=== PATIENT | female | born 1995 | race Caucasian/White ===

== ENCOUNTER 2020-04-20 08:12 | Outpatient (REF) | payer OTHER, SELFPAY ==
[2020-04-20 11:13] LABS: Alanine Aminotransferase 15 U/L (0-31); Alkaline Phosphatase 55 U/L (39-117); Anion Gap 13 (12-20); Aspartate Amino Transferase 19 U/L (5-31); Bilirubin Total 0.4 mg/dL (0.0-1.0); Blood Urea Nitrogen 11 mg/dL (9-16); Calcium 8.2 mg/dL (8.4-10.2); Carbon Dioxide 24 mmol/L (22-29); Chloride 107 mmol/L (96-108); Estimated Glomerular Filt Rate > 60; Glucose Random 100 mg/dL (60-115); Potassium 4.6 mmol/l (3.3-5.1); Sodium 139 mmol/L (135-145); Total Protein 6.9 g/dL (6.5-8.0)
[2020-04-20 11:25] LABS: Erythrocyte Sedimentation Rate 10 MM/HR (0-20)
[2020-04-20 11:59] LABS: Folate 16.4 ng/mL (> or = 4.0); Vitamin B12 348 pg/mL (200-900)
[2020-04-21 08:52] LABS: Lyme Abs Screen <0.90 index
[2020-04-23 06:37] LABS: IgA 279 mg/dL (47-310); IgG 1027 mg/dL (600-1640); IgM 328 mg/dL (50-300)
== END 2020-04-20 08:13 | disposition home or self-care (01) ==
LOC: HO.WFDLDS 08:12
PROVIDERS: Visit Provider Psychiatry & Neurology Neurology
DX: G62.9 Polyneuropathy, unspecified (principal)
CPT/HCPCS: 36415; 80053; 82550; 82607; 82746; 82784; 85652; 86334; 86618

== ENCOUNTER 2020-04-26 11:08 | Emergency (ER) | payer OTHER, SELFPAY ==
[2020-04-26 11:14] VITALS: BP 137/74; PULSE 71; RESP 16; TEMP 36.8; O2SAT 98; BMI 26.4
--- NOTE | 2020-04-26 11:26 | ED.DIZZY ---
HPI - Dizziness General Chief Complaint: Dizziness Stated Complaint: dizzy,diaphoritic Time Seen by Provider: 04/26/20 11:26 Source: patient Mode of arrival: ambulatory Limitations: no limitations History of Present Illness MD elicited complaint: dizziness, lightheadedness and near syncope Pertinent past history: syncope and hypoglycemia Onset (ago): hour(s) (1) Description: sense of movement, lightheadedness and near-syncope History of similar symptoms: Yes Exacerbating factors: movement/ambulation and change in body position Relieving factors: rest Associated symptoms: nausea, chest pain and weakness Related Data Previous Rx's Medication Instructions Recorded ondansetron 4 mg PO Q8H PRN #20 tab 04/26/20 Allergies Allergy/AdvReac Type Severity Reaction Status Date / Time chocolate flavor Allergy Unknown hives Verified 04/22/20 10:37 codeine [CODEINE] Allergy Unknown UNKNOWN, Verified 04/22/20 10:37 anxiety gluten Allergy Unknown Unknown Verified 04/22/20 10:37 Review of Systems Review of Systems: Constitutional : No Weight loss, No Fever, No Chills ENT/Mouth : No sore throat, No Rhinorrhea Eyes: No Eye Pain, No Swelling Cardiovascular : pos Chest Pain, pos SOB, no Dyspnea on Exertion, No Orthopnea, No Edema, No Palpitations Respiratory : No Cough, No Sputum Gastrointestinal : pos Nausea, No Vomiting, No Diarrhea, No abdominal Pain, No Hematochezia, No Melena Genitourinary : No Dysuria, No Urinary Frequency Musculoskeletal : No joint pain, No Myalgias, No Joint Swelling Skin : No Skin Lesions, No rash Neuro : pos Weakness, No Numbness, No Dizziness, pos Headache Psych : pos Anxiety/Panic, No Depression Heme/Lymph: No Bruising, No Lymphadenopathy Endocrine : No Polyuria, No Polydipsia All other systems reviewed and are negative REPLACED BY [facility] Past Medical History Attestation statement: The following information was validated with the patient. Medical History (Updated 04/26/20 @ 15:37 by Dia Piedra DO) Anxiety PTSD (post-traumatic stress disorder) Surgical History History of hysteroscopy History of tonsillectomy and adenoidectomy History of wisdom tooth extraction Family History Family History (Updated 04/22/20 @ 10:41 by ANA Dalal) Father Scoliosis Psoriasis Mother Diabetes Back pain Gene mutation Maternal Grandmother Liver cancer H/O ETOH abuse Seizures Smoker Paternal Grandfather Smoker CAD (coronary artery disease) Hyperlipidemia Brother Opioid overdose Social History Social History Alcohol intake: never Smoking Status: Never smoker Use of substances other than those prescribed or required for medical reasons: No Advance Directives: No Advance Directives Information Provided: Yes Physical Exam Vital Signs: Vital Signs: Last Vital Signs Temp 98.2 F 04/26/20 11:14 Pulse 67 04/26/20 13:50 Resp 16 04/26/20 11:14 BP 111/62 04/26/20 13:50 Pulse Ox 98 04/26/20 11:14 Body Mass Index 26.4 Appearance: Alert. Oriented X3. No acute distress. Anxious Eyes: Pupils equal, round and reactive to light. ENT: Pharynx normal. Neck: Normal inspection. Neck supple. CVS: Normal heart rate and rhythm. Pulses normal. Respiratory: No respiratory distress. Breath sounds normal. Abdomen: Soft and nontender. Skin: Skin warm and dry. Normal skin color. Normal skin turgor. Extremities: No lower extremity edema. No calf ttp Neuro: Oriented X 3. No motor deficit. No sensory deficit. Course Course Course Narrative: CTA negative, VS stable, EKG negative blood work reassuring stable for DC at this time, feels better reglan and benadryl ordered, there is a component of anxiety MDM - Dizziness MDM Narrative Medical decision making narrative: 25 yo female with hx of syncope, PTSD on OCPs - here with near syncopal event, diffuse weakness some vague chest pain at this time will need labs, EKG, IV ativan for anxiety, troponin x 1, ddimer - dispo per results and findings. Lab Data Result diagrams: 04/26/20 12:02 04/26/20 12:02 Labs: Lab Results 04/26/20 04/26/20 04/26/20 Range/Units 12:02 12:02 12:02 WBC 9.2 (4.8-10.8) X10*3/uL RBC 4.51 (4.20-5.50) X10*6/uL Hgb 13.8 (12.0-16.0) g/dl Hct 41.5 (37-47) % MCV 92.0 (80-98) fL MCH 30.6 (27.0-33.0) pg MCHC 33.3 (31.0-35.0) g/dl RDW 12.4 (11.0-16.0) % Plt Count 245 (160-400) X10*3/uL MPV 10.2 (9.4-12.3) fL Immature Gran % (Auto) 0.4 (0.0-0.4) % Neut % (Auto) 72.5 (45-73) % Lymph % (Auto) 20.0 (20-40) % [place] % (Auto) 5.7 (2-11) % Eos % (Auto) 1.1 (0-4) % Baso % (Auto) 0.3 (0-2) % Lymph # (Auto) 1.8 (1.2-4.9) X10*3/uL [place] # (Auto) 0.5 (0.1-1.2) X10*3/uL Eos # (Auto) 0.1 (0.0-0.4) X10*3/uL Baso # (Auto) 0.0 (0.0-0.2) X10*3/uL Abs Immat Gran (auto) 0.04 H (0.00-0.03) X10*3/uL Absolute Neuts (auto) 6.7 (2.0-8.3) X10*3/uL Absolute Nucleated RBC 0.000 (0.0-0.012) X10*3/uL Nucleated RBC % (auto) 0.0 (0.0-0.2) /100WBC D-Dimer 266 NG/ML Sodium 137 (135-145) mmol/L Potassium 4.3 (3.3-5.1) mmol/l Chloride 106 (96-108) mmol/L Carbon Dioxide 24 (22-29) mmol/L Anion Gap 11 L (12-20) BUN 11 (9-16) mg/dL Creatinine 0.73 (0.5-1.4) mg/dL Estim Creat Clear Calc 99.6 Estimated GFR > 60 Random Glucose 86 (60-115) mg/dL Calcium 8.9 D (8.4-10.2) mg/dL Magnesium 2.0 (1.6-2.6) mg/dL Troponin I High Sens (<3.5-17.0) ng/L 04/26/20 Range/Units 12:02 WBC (4.8-10.8) X10*3/uL RBC (4.20-5.50) X10*6/uL Hgb (12.0-16.0) g/dl Hct (37-47) % MCV (80-98) fL MCH (27.0-33.0) pg MCHC (31.0-35.0) g/dl RDW (11.0-16.0) % Plt Count (160-400) X10*3/uL MPV (9.4-12.3) fL Immature Gran % (Auto) (0.0-0.4) % Neut % (Auto) (45-73) % Lymph % (Auto) (20-40) % [place] % (Auto) (2-11) % Eos % (Auto) (0-4) % Baso % (Auto) (0-2) % Lymph # (Auto) (1.2-4.9) X10*3/uL [place] # (Auto) (0.1-1.2) X10*3/uL Eos # (Auto) (0.0-0.4) X10*3/uL Baso # (Auto) (0.0-0.2) X10*3/uL Abs Immat Gran (auto) (0.00-0.03) X10*3/uL Absolute Neuts (auto) (2.0-8.3) X10*3/uL Absolute Nucleated RBC (0.0-0.012) X10*3/uL Nucleated RBC % (auto) (0.0-0.2) /100WBC D-Dimer NG/ML Sodium (135-145) mmol/L Potassium (3.3-5.1) mmol/l Chloride (96-108) mmol/L Carbon Dioxide (22-29) mmol/L Anion Gap (12-20) BUN (9-16) mg/dL Creatinine (0.5-1.4) mg/dL Estim Creat Clear Calc Estimated GFR Random Glucose (60-115) mg/dL Calcium (8.4-10.2) mg/dL Magnesium (1.6-2.6) mg/dL Troponin I High Sens < 3.5 (<3.5-17.0) ng/L ECG Data Attestation: I personally reviewed and interpreted this ECG as follows: ECG interpretation date: 04/26/20 ECG interpretation time: 14:52 Interpretation: Rate: 50 Rhythm: sinus bradycardia [place]: normal Normal P waves. Normal JOSÉ MANUEL. Normal QRS complex. ST T wave : normal qTC: normal prior studies: no acute ischemia The study has been interpreted contemporaneously by me. . Discharge Plan Discharge Clinical Impression: Near syncope, Acute tension-type headache Patient Disposition: Home, Self-Care Instructions: Acute Headache (ED), Near Syncope (ED) Additional Instructions: return to ED for any worsening symptoms or concerns No evidence of pulmonary embolism. Two small right pulmonary nodules. According to the UPDATED 2017 Fleischner Society recommendations, the advised follow-up imaging for less than 6 mm pulmonary nodule: Low risk, no chest CT follow-up needed and high risk optional chest CT follow-up in one year YOU WOULD FALL INTO THE LOW RISK CATEGORY Prescriptions: New ondansetron 4 mg tablet,disintegrating 4 mg PO Q8H PRN (Reason: nausea and vomiting) Qty: 20 RF: 0 Referrals: Radha Franks NP [Primary Care Provider] - 2 days (if not better) Stand Alone Forms: Work/School Release
--- NOTE | 2020-04-26 11:48 | ECG_ITS ---
Test Reason : DIZZNESS Blood Pressure : / mmHG Vent. Rate : 050 BPM Atrial Rate : 050 BPM P-R Int : 136 ms QRS Dur : 092 ms QT Int : 432 ms P-R-T Axes : 005 077 044 degrees QTc Int : 393 ms Sinus bradycardia Nonspecific ST abnormality Abnormal ECG when compared to EKG of 10/14/19 Heart rate has decreased Referred By: Dia Piedra Electronically Signed By:ULI ALVARENGA MD
[2020-04-26] MEDS: LORazepam 2 MG/ML VIAL 1 MG IVPUSH (12:06)
[2020-04-26] MEDS: ondansetron HCL 4 MG/2 ML VIAL IVPUSH (12:06)
[2020-04-26] MEDS: 0.9 % Sodium Chloride 1,000 ML 999 ML IVCONT (12:06)
[2020-04-26 12:09] LABS: MANUAL DIFF FLAG NO
[2020-04-26 12:13] LABS: Basophils Percent Auto 0.3 % (0-2); Eosinophils Absolute Auto 0.1 X10*3/uL (0.0-0.4); Eosinophils Percent Auto 1.1 % (0-4); Hematocrit 41.5 % (37-47); Hemoglobin 13.8 g/dl (12.0-16.0); Imm Gran Abs Auto 0.04 X10*3/uL (0.00-0.03); Imm Gran Pct Auto 0.4 % (0.0-0.4); Lymphocytes Absolute Auto 1.8 X10*3/uL (1.2-4.9); Mean Corpuscular HGB Conc 33.3 g/dl (31.0-35.0); Mean Corpuscular Hemoglobin 30.6 pg (27.0-33.0); Mean Platelet Volume 10.2 fL (9.4-12.3); Monocytes Absolute Auto 0.5 X10*3/uL (0.1-1.2); Monocytes Percent Auto 5.7 % (2-11); Neutrophils Absolute Auto 6.7 X10*3/uL (2.0-8.3); Neutrophils Percent Auto 72.5 % (45-73); Platelet Count 245 X10*3/uL (160-400); Red Blood Count 4.51 X10*6/uL (4.20-5.50); Red Cell Distribution Width 12.4 % (11.0-16.0); White Blood Count 9.2 X10*3/uL (4.8-10.8)
[2020-04-26 12:17] LABS: D Dimer 266 NG/ML
--- NOTE | 2020-04-26 12:25 | CT_ITS ---
EXAMINATION: CT ANGIOGRAM OF THE CHEST WITH AND WITHOUT CONTRAST (CT PULMONARY ANGIOGRAM FOR PE) CLINICAL INFORMATION: Reason for Exam chest pain elevated ddimer COMPARISON: None TECHNIQUE: Prior to contrast administration, noncontrast localization images were obtained. Subsequently, multidetector volumetric imaging was performed from the thoracic inlet to below the diaphragms following the administration of 65 mLOmnipaque 350 intravenous contrast. No contrast reaction reported Sagittal, coronal, and MIP oblique sagittal reformatted images were obtained on the CT workstation, uploaded to PACS, and reviewed. This CT examination was performed using dose optimization techniques as appropriate, variously including the following: *Automated exposure control *Adjustment of mA and/or kV according to patient size (this includes techniques or standardized protocols for targeted exams where dose is matched to indication/reason for exam; i.e. extremities or head) *Use of iterative reconstruction technique Total exam dose-length product 235 mGy-cm FINDINGS: QUALITY OF STUDY/CONTRAST BOLUS: Satisfactory. PULMONARY ARTERIES: No central or segmental pulmonary emboli. THORACIC AORTA: No aneurysm or dissection. LUNG: There is a 3 mm peripheral or subpleural right middle lobe nodule axial image 199 series 7. There is a 2 mm calcified right lower lobe nodule axial image 321 series 7. PLEURA: No pleural effusion or pneumothorax. MEDIASTINUM: Normal heart size. No pericardial effusion. No hilar or mediastinal lymphadenopathy. No evidence of septal bowing or right heart strain. CHEST WALL/AXILLA: No axillary or internal mammary lymphadenopathy. OSSEOUS STRUCTURES: No acute or suspicious osseous abnormality. UPPER ABDOMEN: Unremarkable. No reflux of contrast into the hepatic veins to suggest elevated right heart pressures. CT/CT angio chest PE protocol IMPRESSION: No evidence of pulmonary embolism. Two small right pulmonary nodules. According to the UPDATED 2017 Fleischner Society recommendations, the advised follow-up imaging for less than 6 mm pulmonary nodule: Low risk, no chest CT follow-up needed and high risk optional chest CT follow-up in one year . VTE: negative
[2020-04-26 12:29] LABS: Anion Gap 11 (12-20); Blood Urea Nitrogen 11 mg/dL (9-16); Calcium 8.9 mg/dL (8.4-10.2); Carbon Dioxide 24 mmol/L (22-29); Chloride 106 mmol/L (96-108); Creatinine Clr Calc Pharmacy 99.6; Estimated Glomerular Filt Rate > 60; Glucose Random 86 mg/dL (60-115); Potassium 4.3 mmol/l (3.3-5.1); Sodium 137 mmol/L (135-145)
[2020-04-26 12:38] LABS: Troponin-I High Sensitivity < 3.5 ng/L (<3.5-17.0)
[2020-04-26 13:50] VITALS: BP 111/62; PULSE 67
[2020-04-26] MEDS: Ketorolac Tromethamine 30 MG/ML VIAL IVPUSH (14:41)
[2020-04-26] MEDS: iohexoL 350 MG/ML 100 ML INFUS..BTL IV (14:43)
[2020-04-26] MEDS: diphenhydrAMINE HCL 50 MG/ML VIAL 25 MG IVPUSH (15:28)
[2020-04-26] MEDS: Metoclopramide HCl 10 MG/2 ML VIAL IVPUSH (15:28)
== END 2020-04-26 16:28 | disposition home or self-care (01) ==
PROVIDERS: Emergency Provider Emergency Medicine; PCP Hospitalist
DX: R42 Dizziness and giddiness (principal); G44.209 Tension-type headache, unspecified, not intractable; R07.9 Chest pain, unspecified; Z79.899 Other long term (current) drug therapy
CPT/HCPCS: 36415; 71275; 80048; 83735; 84484; 85025; 85379; 93005; 96361; 96374; 96375; 99284; J1200; J1885; J2060; J2405; J2765; Q9967

== ENCOUNTER 2020-04-29 11:23 | Outpatient (REF) | payer OTHER, SELFPAY | END 2020-04-29 11:24 | disposition home or self-care (01) | LOC: HO.LAB 11:23 | PROVIDERS: PCP Hospitalist; Visit Provider Internal Medicine | DX: Z20.828 Contact with and (suspected) exposure to other viral communicable diseases (principal) | CPT/HCPCS: C9803; U0003 ==

== ENCOUNTER 2020-05-04 08:34 | Outpatient (REF) | payer OTHER, SELFPAY ==
[2020-05-04 09:05] LABS: COVID-19 Test Negative (Negative)
== END 2020-05-04 08:35 | disposition home or self-care (01) ==
LOC: HO.EMPCOV 08:34
PROVIDERS: PCP Hospitalist; Visit Provider Internal Medicine
DX: Z20.828 Contact with and (suspected) exposure to other viral communicable diseases (principal)
CPT/HCPCS: 87635; C9803

== ENCOUNTER 2020-05-05 09:02 | Outpatient (REF) | payer OTHER, SELFPAY ==
[2020-05-06 11:05] LABS: CT PCR NOT DETECTED (Not Detect.); NG PCR NOT DETECTED (Not Detect.)
== END 2020-05-05 09:03 | disposition home or self-care (01) ==
LOC: HO.LAB 09:02
PROVIDERS: PCP Hospitalist; Visit Provider Advanced Practice Midwife
DX: Z01.419 Encounter for gynecological examination (general) (routine) without abnormal findings (principal); Z20.2 Contact with and (suspected) exposure to infections with a predominantly sexual mode of transmission
CPT/HCPCS: 87491; 87591

== ENCOUNTER 2020-05-17 15:07 | Outpatient (REF) | payer OTHER, SELFPAY ==
[2020-05-17 18:21] LABS: COVID-19 Test Negative (Negative)
== END 2020-05-17 15:08 | disposition home or self-care (01) ==
LOC: HO.EMPCOV 15:07
PROVIDERS: Visit Provider Internal Medicine
DX: Z20.828 Contact with and (suspected) exposure to other viral communicable diseases (principal)
CPT/HCPCS: 87635; C9803

== ENCOUNTER 2020-05-24 07:47 | Outpatient (REF) | payer OTHER, SELFPAY ==
[2020-05-24 08:08] LABS: COVID-19 Test Negative (Negative); IDNOW Serial# 55D5AD1C
== END 2020-05-24 07:48 | disposition home or self-care (01) ==
LOC: HO.EMPCOV 07:47
PROVIDERS: Visit Provider Internal Medicine
DX: Z20.828 Contact with and (suspected) exposure to other viral communicable diseases (principal)
CPT/HCPCS: 87635; C9803

== ENCOUNTER 2020-07-01 07:23 | Outpatient (REF) | payer OTHER, SELFPAY ==
[2020-07-01 08:21] LABS: COVID-19 Test Negative (Negative)
== END 2020-07-01 07:24 | disposition home or self-care (01) ==
LOC: HO.EMPCOV 07:23
PROVIDERS: Visit Provider Internal Medicine
DX: Z20.822 Contact with and (suspected) exposure to COVID-19 (principal)
CPT/HCPCS: 36415; 87635; C9803

== ENCOUNTER 2020-12-22 13:51 | Outpatient (REF) | payer OTHER, SELFPAY ==
[2020-12-23 08:52] LABS: BV Int Neg Control Negative (Negative); BV Int Pos Control Positive (Positive)
== END 2020-12-22 13:52 | disposition home or self-care (01) ==
LOC: HO.LAB 13:51
PROVIDERS: PCP Hospitalist; Visit Provider Obstetrics & Gynecology
DX: B37.3 Candidiasis of vulva and vagina (principal)
CPT/HCPCS: 87480; 87510; 87660

== ENCOUNTER 2021-01-08 11:58 | Emergency (ER) | payer OTHER, SELFPAY ==
--- NOTE | ~2021-01-08 | CT_ITS ---
EXAMINATION: CT ANGIOGRAM OF THE CHEST WITH AND WITHOUT CONTRAST (CT PULMONARY ANGIOGRAM FOR PE) CLINICAL INFORMATION: Reason for Exam elevated d-dimer and chest pain rule out pe COMPARISON: CTA of the chest dated 04/26/2020. TECHNIQUE: Prior to contrast administration, noncontrast localization images were obtained. Subsequently, multidetector volumetric imaging was performed from the thoracic inlet to below the diaphragms following the administration of 80 mL Omnipaque 350 intravenous contrast. No contrast reaction reported Sagittal, coronal, and MIP oblique sagittal reformatted images were obtained on the CT workstation, uploaded to PACS, and reviewed. This CT examination was performed using dose optimization techniques as appropriate, variously including the following: *Automated exposure control *Adjustment of mA and/or kV according to patient size (this includes techniques or standardized protocols for targeted exams where dose is matched to indication/reason for exam; i.e. extremities or head) *Use of iterative reconstruction technique Total exam dose-length product 246 mGy-cm FINDINGS: QUALITY OF STUDY/CONTRAST BOLUS: Satisfactory. PULMONARY ARTERIES: No central or segmental pulmonary emboli. THORACIC AORTA: No aneurysm or dissection. LUNG: No focal consolidation, nodules or masses. PLEURA: No pleural effusion or pneumothorax. MEDIASTINUM: Normal heart size. No pericardial effusion. No hilar or mediastinal lymphadenopathy. No evidence of septal bowing or right heart strain. CHEST WALL/AXILLA: No axillary or internal mammary lymphadenopathy. OSSEOUS STRUCTURES: No acute or suspicious osseous abnormality. UPPER ABDOMEN: Unremarkable. Visualized liver, spleen, left kidney, left adrenal gland, right adrenal gland, and pancreas are unremarkable. No reflux of contrast into the hepatic veins to suggest elevated right heart pressures. CT/CT angio chest PE protocol IMPRESSION: 1. No evidence of pulmonary embolus. 2. Clear lungs. No consolidation. 3. Normal caliber aorta. VTE: negative
--- NOTE | ~2021-01-08 | XR_ITS ---
EXAMINATION: XR CHEST CLINICAL INFORMATION: Chest pain. COMPARISON: Chest CTA dated 04/26/2020. TECHNIQUE: Frontal view of the chest was obtained. FINDINGS: No significant abnormality is noted involving the heart, lungs, mediastinum, bony thorax or soft tissues. XR/XR chest 1V IMPRESSION: No acute cardiopulmonary process.
[2021-01-08 12:33] VITALS: BP 135/74; PULSE 76; RESP 20; TEMP 36.9; O2SAT 100; BMI 28.3
--- NOTE | 2021-01-08 13:51 | ECG_ITS ---
Test Reason : CHEST PAIN Blood Pressure : / mmHG Vent. Rate : 063 BPM Atrial Rate : 063 BPM P-R Int : 152 ms QRS Dur : 094 ms QT Int : 430 ms P-R-T Axes : 015 071 037 degrees QTc Int : 440 ms Normal sinus rhythm Normal ECG When compared with ECG of 26-APR-2020 14:42, QT has lengthened Referred By: Darlene Benavidez Electronically Signed By:EFRAIN ALEJO MD
--- NOTE | 2021-01-08 13:52 | ED_ITS ---
HPI - General Adult General Chief complaint: General Medical Stated complaint: QUEST OF BLOOD CLOT Time Seen by Provider: 01/08/21 13:50 Source: patient and family (Significant other) Mode of arrival: ambulatory Limitations: no limitations History of Present Illness HPI narrative: 25-year-old female came in for evaluation of COVID vaccination complication. 25-year-old female otherwise healthy who received the 1st COVID vaccination shot 2 days ago started to have generalized body ache, generalized body numbness, exertional chest pain and exertional shortness of breath, patient was seen at the urgent care today and was sent to the emergency department for further evaluation. Related Data Home Medications Medication Instructions Recorded Confirmed betamethasone dipropionate 0.05 % applic TOPICAL 04/28/20 08/25/20 topical cream clonazepam 1 mg tablet 1 mg PO BEDTIME PRN 04/28/20 08/25/20 chqiavrgkacl-Lc-fxgd-minerals 27 tab PO 04/28/20 08/25/20 mg-0.4 mg tablet buspirone 5 mg tablet 5 mg PO BID 08/25/20 08/25/20 melatonin 10 mg tablet 10 mg PO BEDTIME PRN 08/25/20 08/25/20 Previous Rx's Medication Instructions Recorded trazodone 100 mg tablet 100 mg PO BEDTIME 90 Days #90 tab 04/28/20 levonorgestrel-ethinyl estradiol 1 tab PO DAILY #28 tab 05/05/20 0.1 mg-20 mcg tablet Allergies Allergy/AdvReac Type Severity Reaction Status Date / Time chocolate flavor Allergy Severe hives with Verified 01/08/21 11:14 airway swelling codeine [CODEINE] Allergy Intermediate anxiety Verified 01/08/21 11:14 gluten Allergy Intermediate abdominal Verified 01/08/21 11:14 pain and bloating Review of Systems Review of Systems: All other systems are reviewed and are negative Constitutional: Reports as per HPI and Reports no additional constitutional complaints Eyes: Reports as per HPI and Reports no additional eye complaints Reports system reviewed and no additional complaints, except as documented Cardiovascular: Reports as per HPI and Reports no additional cardiovascular complaints Respiratory: Reports as per HPI and Reports no additional respiratory complaints Gastrointestinal: Reports as per HPI and Reports no additional gastrointestinal complaints Genitourinary: Reports no additional female genitourinary complaints Musculoskeletal: Reports no additional musculoskeletal complaints Skin/Breast: Reports system reviewed and no additional complaints, except as docu Psychiatric: Reports no additional psychiatric complaints Endocrine: Reports no additional endocrine complaints Hematologic/Lymphatic: Reports no additional hematologic/lymphatic complaints Allergic/Immunologic: Reports no additional allergic/immunologic complaints Reports system reviewed and no additional complaints, except as documented and Reports Abnormal speech present [facility] Past Medical History Medical History Anxiety Degenerated intervertebral disc Fibromyalgia Homozygous MTHFR mutation [id number] PTSD (post-traumatic stress disorder) Vasovagal syncope Vitamin D deficiency Surgical History History of hysteroscopy History of tonsillectomy and adenoidectomy History of wisdom tooth extraction Family History Family History Father Scoliosis Psoriasis Mother Diabetes Back pain Gene mutation Maternal Grandmother Liver cancer H/O ETOH abuse Seizures Smoker Paternal Grandfather Smoker CAD (coronary artery disease) Hyperlipidemia Paternal Uncle Opioid overdose Social History Social History Alcohol intake: never Patient Tobacco Use Status: Never used Tobacco Use of substances other than those prescribed or required for medical reasons: No Advance Directives: No Advance Directives Information Provided: Yes Patient : No Physical Exam Vital Signs: Vital Signs: Last Vital Signs Temp 98.5 F 01/08/21 12:33 Pulse 76 01/08/21 12:33 Resp 20 01/08/21 12:33 BP 135/74 01/08/21 12:33 Pulse Ox 100 01/08/21 12:33 Body Mass Index 28.3 Vital signs have been reviewed as appeared to be correct. Blood pressure normal. Heart rate normal. Respiration rate normal. Temperature normal. Oxygen saturation normal. Appearance: Alert. Oriented X3. No acute distress, anxious. Head: Normal external exam. Normocephalic. Atraumatic. No Qureshi signs noted. No raccoon eyes noted Eyes: PERRLA. EOMI. Conjunctiva and sclera normal. Eyelids normal. ENT: TM's Normal. Pharynx normal. Uvula midline. Moist mucous membranes. No trismus noted. No drooling noted. No muffled voice noted. Neck: Normal inspection. Neck supple. FROM. No adenopathy. Thyroid Normal. No meningeal signs. No neck mass noted. CVS: Normal heart rate and rhythm. Heart sound normal. No murmurs noted. Pulses normal throughout. Respiratory: No respiratory distress. Painless inspiration. Breath sounds normal. No wheezes/rales/rhonchi noted. Chest nontender. No accessory muscle usage noted or decreased air movement noted. Abdomen: Soft and nontender. Bowel sounds normal in all 4 quadrants. No distention noted. No organomegaly noted. No visible injury noted. Back: No CVA tenderness. Full range of motion noted. Skin: Skin warm and dry. Normal skin color. Normal skin turgor. No rashes/lesions/lacerations noted. Extremities: No lower extremity edema. Extremities exhibit normal range of motion. Extremities nontender. Neuro: Oriented X 3. No motor deficit. No sensory deficit. Reflexes normal. Course Course Course Narrative: Assessment and plan. 25-year-old female who received her vaccination for COVID, patient had reaction to vaccination, there was a concern of blood clots, because the slight elevation of D-dimer, patient had a CTA which shows no PE. Labs are unremarkable including cardiac. Will reassure the patient discharge home with Tylenol p.r.n.. Reevaluation(s) Reevaluation #1: While I am discharging the patient trying to reassure her patient became anxious start to cry keep repeating I can take it any more , I kept reassuring the patient and wheezing give the patient any other medication other than Tylenol/Benadryl to control her symptoms. Time: 16:19 Medical Decision Making Lab Data Result diagrams: 01/08/21 14:14 01/08/21 14:14 Labs: Lab Results 01/08/21 01/08/21 01/08/21 Range/Units 14:14 14:14 14:14 WBC 7.7 (4.8-10.8) X10*3/uL RBC 4.73 (4.20-5.50) X10*6/uL Hgb 14.4 (12.0-16.0) g/dl Hct 43.2 (37-47) % MCV 91.3 (80-98) fL MCH 30.4 (27.0-33.0) pg MCHC 33.3 (31.0-35.0) g/dl RDW 12.2 (11.0-16.0) % Plt Count 269 (160-400) X10*3/uL MPV 10.4 (9.4-12.3) fL Immature Gran % (Auto) 0.6 H (0.0-0.4) % Neut % (Auto) 63.9 (45-73) % Lymph % (Auto) 24.9 (20-40) % [place] % (Auto) 7.0 (2-11) % Eos % (Auto) 3.0 (0-4) % Baso % (Auto) 0.6 (0-2) % Lymph # (Auto) 1.9 (1.2-4.9) X10*3/uL [place] # (Auto) 0.5 (0.1-1.2) X10*3/uL Eos # (Auto) 0.2 (0.0-0.4) X10*3/uL Baso # (Auto) 0.1 (0.0-0.2) X10*3/uL Abs Immat Gran (auto) 0.05 H (0.00-0.03) X10*3/uL Absolute Neuts (auto) 4.9 (2.0-8.3) X10*3/uL Absolute Nucleated RBC 0.000 (0.0-0.012) X10*3/uL Nucleated RBC % (auto) 0.0 (0.0-0.2) /100WBC D-Dimer 280 NG/ML Sodium 140 (135-145) mmol/L Potassium 3.8 (3.3-5.1) mmol/L Chloride 107 (96-108) mmol/L Carbon Dioxide 24 (22-29) mmol/L Anion Gap 13 (12-20) BUN 11 (9-16) mg/dL Creatinine 0.82 (0.5-1.4) mg/dL Estim Creat Clear Calc 91.6 Estimated GFR > 60 Random Glucose 92 (60-115) mg/dL Calcium 8.9 (8.4-10.2) mg/dL Total Bilirubin 0.3 (0.0-1.0) mg/dL Direct Bilirubin < 0.2 (0.0-0.5) mg/dL AST 24 (5-31) U/L ALT 28 (0-31) U/L Alkaline Phosphatase 64 (39-117) U/L Troponin I High Sens (<3.5-17.0) ng/L B-Natriuretic Peptide (<100) pg/mL Total Protein 7.2 (6.5-8.0) g/dL Albumin 4.0 (3.5-5.0) g/dL Lipase 19 (8-78) U/L Beta HCG, Quant < 2 mIU/mL 01/08/21 Range/Units 14:14 WBC (4.8-10.8) X10*3/uL RBC (4.20-5.50) X10*6/uL Hgb (12.0-16.0) g/dl Hct (37-47) % MCV (80-98) fL MCH (27.0-33.0) pg MCHC (31.0-35.0) g/dl RDW (11.0-16.0) % Plt Count (160-400) X10*3/uL MPV (9.4-12.3) fL Immature Gran % (Auto) (0.0-0.4) % Neut % (Auto) (45-73) % Lymph % (Auto) (20-40) % [place] % (Auto) (2-11) % Eos % (Auto) (0-4) % Baso % (Auto) (0-2) % Lymph # (Auto) (1.2-4.9) X10*3/uL [place] # (Auto) (0.1-1.2) X10*3/uL Eos # (Auto) (0.0-0.4) X10*3/uL Baso # (Auto) (0.0-0.2) X10*3/uL Abs Immat Gran (auto) (0.00-0.03) X10*3/uL Absolute Neuts (auto) (2.0-8.3) X10*3/uL Absolute Nucleated RBC (0.0-0.012) X10*3/uL Nucleated RBC % (auto) (0.0-0.2) /100WBC D-Dimer NG/ML Sodium (135-145) mmol/L Potassium (3.3-5.1) mmol/L Chloride (96-108) mmol/L Carbon Dioxide (22-29) mmol/L Anion Gap (12-20) BUN (9-16) mg/dL Creatinine (0.5-1.4) mg/dL Estim Creat Clear Calc Estimated GFR Random Glucose (60-115) mg/dL Calcium (8.4-10.2) mg/dL Total Bilirubin (0.0-1.0) mg/dL Direct Bilirubin (0.0-0.5) mg/dL AST (5-31) U/L ALT (0-31) U/L Alkaline Phosphatase (39-117) U/L Troponin I High Sens < 3.5 (<3.5-17.0) ng/L B-Natriuretic Peptide < 10 (<100) pg/mL Total Protein (6.5-8.0) g/dL Albumin (3.5-5.0) g/dL Lipase (8-78) U/L Beta HCG, Quant mIU/mL Imaging Data Chest x-ray: Radiologist's impression: No acute cardiopulmonary process. CT of the chest: Radiologist's impression: No PE. ECG Data Interpretation: Normal sinus rhythm at 63 beats per minutes, normal axis deviation, normal intervals, no ST-T changes Discharge Plan Discharge Clinical Impression: Anxiety, Vaccine reaction Patient Disposition: Home, Self-Care Instructions: The Importance of Immunizations (Vaccines) for Adults (ED) Prescriptions: No Action clonazepam 1 mg tablet 1 mg PO BEDTIME PRNRF: 0 betamethasone dipropionate 0.05 % cream topical RF: 0 Women's Daily Formula 27-0.4 mg tablet PO RF: 0 trazodone 100 mg tablet 100 mg PO BEDTIME 90 Days Qty: 90 RF: 1 melatonin 10 mg tablet 10 mg PO BEDTIME PRNRF: 0 buspirone 5 mg tablet 5 mg PO BID RF: 0 levonorgestrel-ethinyl estrad 0.1-20 mg-mcg tablet 1 tab PO DAILY Qty: 28 RF: 11 Referrals: Radha Franks NP [Primary Care Provider] - 2 days
[2021-01-08 14:21] LABS: Basophils Absolute Auto 0.1 X10*3/uL (0.0-0.2); Basophils Percent Auto 0.6 % (0-2); Eosinophils Absolute Auto 0.2 X10*3/uL (0.0-0.4); Hematocrit 43.2 % (37-47); Hemoglobin 14.4 g/dl (12.0-16.0); Imm Gran Abs Auto 0.05 X10*3/uL (0.00-0.03); Imm Gran Pct Auto 0.6 % (0.0-0.4); Lymphocytes Absolute Auto 1.9 X10*3/uL (1.2-4.9); Lymphocytes Percent Auto 24.9 % (20-40); MANUAL DIFF FLAG NO; Mean Corpuscular HGB Conc 33.3 g/dl (31.0-35.0); Mean Corpuscular Hemoglobin 30.4 pg (27.0-33.0); Mean Corpuscular Volume 91.3 fL (80-98); Mean Platelet Volume 10.4 fL (9.4-12.3); Monocytes Absolute Auto 0.5 X10*3/uL (0.1-1.2); Neutrophils Absolute Auto 4.9 X10*3/uL (2.0-8.3); Neutrophils Percent Auto 63.9 % (45-73); Platelet Count 269 X10*3/uL (160-400); Red Blood Count 4.73 X10*6/uL (4.20-5.50); Red Cell Distribution Width 12.2 % (11.0-16.0); White Blood Count 7.7 X10*3/uL (4.8-10.8)
[2021-01-08] MEDS: 0.9 % Sodium Chloride 1,000 ML 999 ML IVCONT (14:21)
[2021-01-08 14:31] LABS: D Dimer 280 NG/ML
[2021-01-08 14:44] LABS: Alanine Aminotransferase 28 U/L (0-31); Alkaline Phosphatase 64 U/L (39-117); Anion Gap 13 (12-20); Aspartate Amino Transferase 24 U/L (5-31); Bilirubin Direct < 0.2 mg/dL (0.0-0.5); Bilirubin Total 0.3 mg/dL (0.0-1.0); Blood Urea Nitrogen 11 mg/dL (9-16); Calcium 8.9 mg/dL (8.4-10.2); Carbon Dioxide 24 mmol/L (22-29); Chloride 107 mmol/L (96-108); Creatinine Clr Calc Pharmacy 91.6; Estimated Glomerular Filt Rate > 60; Glucose Random 92 mg/dL (60-115); Lipase 19 U/L (8-78); Potassium 3.8 mmol/L (3.3-5.1); Sodium 140 mmol/L (135-145); Total Protein 7.2 g/dL (6.5-8.0)
[2021-01-08 14:48] LABS: B Type Natriuretic Peptide < 10 pg/mL (<100); Troponin-I High Sensitivity < 3.5 ng/L (<3.5-17.0)
[2021-01-08 15:09] LABS: HCG Quantitative < 2 mIU/mL
[2021-01-08] MEDS: iohexoL 350 MG/ML 100 ML INFUS..BTL IV (15:33)
--- NOTE | 2021-01-08 15:49 | PC.NURSE ---
Pt resting quietly in room, aaits CTA. Family at bedside
== END 2021-01-08 16:37 | disposition home or self-care (01) ==
PROVIDERS: Emergency Provider Emergency Medicine; PCP Hospitalist
DX: F41.9 Anxiety disorder, unspecified (principal); T50.B95A Adverse effect of other viral vaccines, initial encounter; Y92.9 Unspecified place or not applicable; R06.02 Shortness of breath; R53.81 Other malaise
CPT/HCPCS: 36415; 71045; 71275; 80048; 80076; 83690; 83880; 84484; 84702; 85025; 85379; 93005; 96360; 99284; Q9967

== ENCOUNTER → 2021-03-15 10:32 | Outpatient (BNVA) | payer OTHER, SELFPAY | PROVIDERS: PCP Hospitalist; Referring Provider Family Medicine; Visit Provider Nurse Practitioner Family ==

== ENCOUNTER 2021-03-31 07:25 | Outpatient (REF) | payer OTHER, SELFPAY ==
[2021-03-31 09:05] LABS: Cholesterol 187 mg/dL; HDL Cholesterol 38 mg/dL; LDL Cholesterol Calculated 119 mg/dl; Triglycerides 154 mg/dL
[2021-04-01 08:47] LABS: Varicella IgG Antibody <135.00 index
[2021-04-01 14:26] LABS: Hepatitis BE Antibody NON-REACTIVE (NON-REACTIVE)
== END 2021-03-31 07:26 | disposition home or self-care (01) ==
LOC: HO.LAB 07:25
PROVIDERS: Absent Provider Family Medicine; PCP Family Medicine; Visit Provider Hospitalist
DX: Z00.00 Encounter for general adult medical examination without abnormal findings (principal); Z11.59 Encounter for screening for other viral diseases
CPT/HCPCS: 36415; 80061; 86707; 86735; 86765; 86787

== ENCOUNTER → 2021-04-29 13:16 | Outpatient (BNVA) | payer OTHER, SELFPAY | PROVIDERS: PCP Family Medicine; Visit Provider Advanced Practice Midwife | DX: N92.6 Irregular menstruation, unspecified (principal) | CPT/HCPCS: 81025 ==

== ENCOUNTER → 2021-05-03 19:29 | Outpatient (REF) | payer OTHER, SELFPAY | LOC: HO.SL 19:29 | PROVIDERS: PCP Hospitalist; Visit Provider Nurse Practitioner Family | DX: G47.50 Parasomnia, unspecified (principal); G47.39 Other sleep apnea | CPT/HCPCS: 95810 ==

== ENCOUNTER 2021-05-06 09:27 | Outpatient (REF) | payer OTHER, SELFPAY ==
--- NOTE | ~2021-05-06 | US_ITS ---
EXAMINATION: OBSTETRICAL ULTRASOUND, FIRST TRIMESTER HISTORY: 26-year-old with irregular menses LMP: 03/23/2021 COMPARISON: None TECHNIQUE: Real time transabdominal imaging with color and M-mode Doppler. FINDINGS: A single, live IUP CRL of 0.6 mm c/w 6.3wks is noted. Heart Rate: 122 beats per minute. Both maternal ovaries are seen and appear normal. GESTATIONAL AGE: 1. GA from LMP: 6.2 wks 2. GA from AUA: 6.3 wks ESTIMATED DATE OF DELIVERY: 1. ENRRIQUE from LMP: 12/28/2021 2. ENRRIQUE from AUA: 12/27/2021 US/US OB pelvic and transvaginal IMPRESSION: 1. A single of live IUP 2. Size equals dates. CRL is consistent with 6 weeks 3 days confirming her LMP based ENRRIQUE of the 12/28/2021. No specific ultrasound followup appears needed at this time. The patient was advised that ultrasound cannot guarantee the of a normal . Thank you very much for this referral. This note was generated with a voice recognition program. Please excuse any errors which may have been overlooked during my review of this note. Sometimes these errors may affect the content or meaning of a given sentence.
== END 2021-05-06 09:28 | disposition home or self-care (01) ==
LOC: HO.US 09:27
PROVIDERS: PCP Family Medicine; Visit Provider Advanced Practice Midwife
DX: Z34.01 Encounter for supervision of normal first pregnancy, first trimester (principal)
CPT/HCPCS: 76801; 76817

== ENCOUNTER → 2021-05-20 13:51 | Outpatient (BNVA) | payer OTHER, SELFPAY | PROVIDERS: PCP Hospitalist; Visit Provider Advanced Practice Midwife | DX: O99.341 Other mental disorders complicating pregnancy, first trimester (principal); F43.10 Post-traumatic stress disorder, unspecified; F41.1 Generalized anxiety disorder; F33.9 Major depressive disorder, recurrent, unspecified; Z11.59 Encounter for screening for other viral diseases; Z3A.08 8 weeks gestation of pregnancy | CPT/HCPCS: 99212 ==

== ENCOUNTER 2021-05-27 09:01 | Outpatient (REF) | payer OTHER, SELFPAY ==
[2021-05-27 10:34] LABS: Amphetamine Screen Urine Not Detected (Not Detect); Barbiturates, Urine Not Detected (Not Detect); Benzodiazepines Screen Urine Not Detected (Not Detect); Cannabinoid Screen Urine Not Detected (Not Detect); Cocaine Screen Urine Not Detected (Not Detect); Fentanyl, urine Not Detected (Not Detect); Opiate Screen Urine Not Detected (Not Detect); Phencyclidine Screen Urine Not Detected (Not Detect)
[2021-05-27 11:06] LABS: Hematocrit 38.2 % (37.0-47.0); Hemoglobin 12.7 g/dl (12.0-16.0); Mean Corpuscular HGB Conc 33.2 g/dl (31.0-35.0); Mean Corpuscular Hemoglobin 30.2 pg (27.0-33.0); Mean Platelet Volume 10.4 fL (9.4-12.3); Platelet Count 247 X10*3/uL (160-400); Red Cell Distribution Width 12.6 % (11.0-16.0); White Blood Count 12.7 X10*3/uL (4.8-10.8)
[2021-05-27 11:35] LABS: Glucose 1 Hour PP 50gm Dose 125 mg/dL (60-140)
[2021-05-27 11:56] LABS: HIV AB/AG Nonreactive (Nonreactive); ~HepC Num1 0.15 S/CO (0.00-0.79); ~Hepatitis C Antibody Nonreactive (Nonreactive)
[2021-05-27 12:00] LABS: Syphilis Screen Nonreactive (Nonreactive)
[2021-05-27 12:13] LABS: HBsAGNum1 0.26 S/CO (0.00-0.99); Hepatitis B Surface Antigen Negative (Negative)
[2021-05-29 01:35] LABS: Rubella IgG Antibody 2.33 Index; Varicella IgG Antibody <135.00 index
== END 2021-05-27 09:02 | disposition home or self-care (01) ==
LOC: HO.LAB 09:01
PROVIDERS: PCP Family Medicine; Visit Provider Advanced Practice Midwife
DX: Z32.01 Encounter for pregnancy test, result positive (principal)
CPT/HCPCS: 80307; 85027; 86762; 86780; 86787; 86803; 86850; 86900; 86901; 87086; 87340; 87389

== ENCOUNTER 2021-06-08 11:00 | Outpatient (RCR) | payer OTHER, SELFPAY ==
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
--- NOTE | 2021-04-14 21:19 | P.PNPS_ITS ---
TMS Daily Progress Note Daily TMS Progress Note Date of Service: 04/14/21 Week #: 1 Treatment #(07-17): 1 PHQ-9 Pre-Treatment (07-14): 20 PHQ-9 Most Recent (07-14): 20 Reviewed: TMS Mapping/Re-mapping completed Verification: I have reviewed the TMS Bulk Plant Agent Note and agree with the contents. The patient remains a candidate to continue TMS treatment per protocol. Assessment and Plan (1) Major depressive disorder, recurrent episode with anxious distress: Status: Acute (2) Generalized anxiety disorder: Status: Acute (3) Post traumatic stress disorder (PTSD): Status: Acute initial mapping completed
--- NOTE | 2021-04-15 18:51 | HO.TMSDAILY2 ---
TMS Daily Progress Note Daily TMS Progress Note Date of Service: 04/15/21 Week #: 1 Treatment #(07-17): 2 PHQ-9 Pre-Treatment (07-14): 20 PHQ-9 Most Recent (07-14): 20 Reviewed: TMS Tech Note Reviewed Verification: I have reviewed the TMS Ballast Cleaning Operator Note and agree with the contents. The patient remains a candidate to continue TMS treatment per protocol. Assessment and Plan (1) Major depressive disorder, recurrent episode with anxious distress: Status: Acute (2) Generalized anxiety disorder: Status: Acute (3) Post traumatic stress disorder (PTSD): Status: Acute tolerating initial treatment continue tx plan
--- NOTE | 2021-04-18 21:15 | P.PNPS_ITS ---
TMS Daily Progress Note Daily TMS Progress Note Date of Service: 04/18/21 Week #: 1 Treatment #(07-17): 3 PHQ-9 Pre-Treatment (07-14): 20 PHQ-9 Most Recent (07-14): 20 Reviewed: TMS Tech Note Reviewed Verification: I have reviewed the TMS Stiff Leg Operator Note and agree with the contents. The patient remains a candidate to continue TMS treatment per pro tocol. Assessment and Plan (1) Major depressive disorder, recurrent episode with anxious distress: Status: Acute (2) Generalized anxiety disorder: Status: Acute (3) Post traumatic stress disorder (PTSD): Status: Acute tolerating treatment continue tx plan
--- NOTE | 2021-04-19 21:42 | P.PNPS_ITS ---
TMS Daily Progress Note Daily TMS Progress Note Date of Service: 04/19/21 Week #: 1 Treatment #(07-17): 4 PHQ-9 Pre-Treatment (07-14): 20 PHQ-9 Most Recent (07-14): 20 Reviewed: TMS Tech Note Reviewed Verification: I have reviewed the TMS Bankruptcy Law Specialist Note and agree with the contents. The patient remains a candidate to continue TMS treatment per pro tocol. Assessment and Plan (1) Major depressive disorder, recurrent episode with anxious distress: Status: Acute (2) Generalized anxiety disorder: Status: Acute (3) Post traumatic stress disorder (PTSD): Status: Acute tolerating treatment continue tx plan
--- NOTE | 2021-04-20 21:46 | P.PNPS_ITS ---
TMS Daily Progress Note Daily TMS Progress Note Date of Service: 04/20/21 Week #: 1 Treatment #(07-17): 5 PHQ-9 Pre-Treatment (07-14): 20 PHQ-9 Most Recent (07-14): 20 Reviewed: TMS Tech Note Reviewed Verification: I have reviewed the TMS Facilities And Grounds Director Note and agree with the contents. The patient remains a candidate to continue TMS treatment per pro tocol. Assessment and Plan (1) Major depressive disorder, recurrent episode with anxious distress: Status: Acute (2) Generalized anxiety disorder: Status: Acute (3) Post traumatic stress disorder (PTSD): Status: Acute tolerating treatment continue tx plan
--- NOTE | 2021-04-21 22:10 | P.PNPS_ITS ---
TMS Daily Progress Note Daily TMS Progress Note Date of Service: 04/21/21 Week #: 2 Treatment #(07-17): 6 PHQ-9 Pre-Treatment (07-14): 20 PHQ-9 Most Recent (07-14): 20 Reviewed: TMS Tech Note Reviewed Verification: I have reviewed the TMS Squirt Machine Operator Note and agree with the contents. The patient remains a candidate to continue TMS treatment per pro tocol.
--- NOTE | 2021-04-22 20:35 | P.PNPS_ITS ---
TMS Daily Progress Note Daily TMS Progress Note Date of Service: 04/22/21 Week #: 2 Treatment #(07-17): 7 PHQ-9 Pre-Treatment (07-14): 20 PHQ-9 Most Recent (07-14): 20 Reviewed: TMS Tech Note Reviewed Verification: I have reviewed the TMS Central Services Tech Note and agree with the contents. The patient remains a candidate to continue TMS treatment per pro tocol. Assessment and Plan (1) Major depressive disorder, recurrent episode with anxious distress: Status: Acute (2) Generalized anxiety disorder: Status: Acute (3) Post traumatic stress disorder (PTSD): Status: Acute tolerating treatment continue tx plan
--- NOTE | 2021-04-26 20:08 | P.PNPS_ITS ---
TMS Daily Progress Note Daily TMS Progress Note Date of Service: 04/26/21 Week #: 2 Treatment #(07-17): 8 PHQ-9 Pre-Treatment (07-14): 20 PHQ-9 Most Recent (07-14): 20 Reviewed: TMS Tech Note Reviewed Verification: I have reviewed the TMS Otolaryngology Physician Note and agree with the contents. The patient remains a candidate to continue TMS treatment per pro tocol.Pt is pregant x Approx 1 month reviewed risks benefits with pt Assessment and Plan (1) Major depressive disorder, recurrent episode with anxious distress: Status: Acute (2) Generalized anxiety disorder: Status: Acute (3) Post traumatic stress disorder (PTSD): Status: Acute literature reviewed case reviewed with pt regarding tms and had L eye pain will monitor adjust position consider change to r side only
--- NOTE | 2021-04-27 21:55 | HO.TMSDAILY2 ---
TMS Daily Progress Note Daily TMS Progress Note Date of Service: 04/27/21 Week #: 2 Treatment #(07-17): 9 PHQ-9 Pre-Treatment (07-14): 20 PHQ-9 Most Recent (07-14): 20 Reviewed: TMS Tech Note Reviewed Verification: I have reviewed the TMS Senior Wind Turbine Technician Note and agree with the contents. The patient remains a candidate to continue TMS treatment per protocol. Assessment and Plan (1) Major depressive disorder, recurrent episode with anxious distress: Status: Acute (2) Generalized anxiety disorder: Status: Acute (3) Post traumatic stress disorder (PTSD): Status: Acute had tooth pain with tms soa changed mt percent decreased pt tolerated tx feeling in general somewhat better
--- NOTE | 2021-04-28 23:11 | HO.TMSDAILY2 ---
TMS Daily Progress Note Daily TMS Progress Note Date of Service: 04/28/21 Week #: 2 Treatment #(07-17): 10 PHQ-9 Pre-Treatment (07-14): 20 PHQ-9 Most Recent (07-14): 20 Reviewed: TMS Tech Note Reviewed Verification: I have reviewed the TMS Medical Coding Manager Note and agree with the contents. The patient remains a candidate to continue TMS treatment per protocol. Assessment and Plan (1) Major depressive disorder, recurrent episode with anxious distress: Status: Acute (2) Generalized anxiety disorder: Status: Acute (3) Post traumatic stress disorder (PTSD): Status: Acute pt witrhout current fascial n side effect tolerating tx feeling better
--- NOTE | 2021-04-29 21:40 | P.PNPS_ITS ---
TMS Daily Progress Note Daily TMS Progress Note Date of Service: 04/29/21 Week #: 3 Treatment #(07-17): 11 PHQ-9 Pre-Treatment (07-14): 20 PHQ-9 Most Recent (07-14): 20 Reviewed: TMS Tech Note Reviewed Verification: I have reviewed the TMS Explosives Handler Note and agree with the contents. The patient remains a candidate to continue TMS treatment per pr otocol. Assessment and Plan (1) Major depressive disorder, recurrent episode with anxious distress: Status: Acute (2) Generalized anxiety disorder: Status: Acute (3) Post traumatic stress disorder (PTSD): Status: Acute cont ttx plan
--- NOTE | 2021-05-02 22:15 | P.PNPS_ITS ---
TMS Daily Progress Note Daily TMS Progress Note Date of Service: 05/02/21 Week #: 3 Treatment #(07-17): 12 PHQ-9 Pre-Treatment (07-14): 20 PHQ-9 Most Recent (07-14): 20 Reviewed: TMS Tech Note Reviewed Verification: I have reviewed the TMS Cnc Milling Machinist Note and agree with the contents. The patient remains a candidate to continue TMS treatment per pr otocol. Assessment and Plan (1) Major depressive disorder, recurrent episode with anxious distress: Status: Acute (2) Generalized anxiety disorder: Status: Acute (3) Post traumatic stress disorder (PTSD): Status: Acute cont ttx plan
--- NOTE | 2021-05-03 21:48 | P.PNPS_ITS ---
TMS Daily Progress Note Daily TMS Progress Note Date of Service: 05/03/21 Week #: 3 Treatment #(07-17): 13 PHQ-9 Pre-Treatment (07-14): 20 PHQ-9 Most Recent (07-14): 20 Reviewed: TMS Tech Note Reviewed Verification: I have reviewed the TMS Marketing And Public Relations Manager Note and agree with the contents. The patient remains a candidate to continue TMS treatment per pr otocol.
--- NOTE | 2021-05-04 23:02 | P.PNPS_ITS ---
TMS Daily Progress Note Daily TMS Progress Note Date of Service: 05/04/21 Week #: 3 Treatment #(07-17): 14 PHQ-9 Pre-Treatment (07-14): 20 PHQ-9 Most Recent (07-14): 20 Reviewed: TMS Tech Note Reviewed Verification: I have reviewed the TMS Director [employer] Aging Note and agree with the contents. The patient remains a candidate to continue TMS treatment per pr otocol. Assessment and Plan (1) Major depressive disorder, recurrent episode with anxious distress: Status: Acute cont tx plan monitor mood anxiety
--- NOTE | 2021-05-05 22:56 | P.PNPS_ITS ---
TMS Daily Progress Note Daily TMS Progress Note Date of Service: 05/05/21 Week #: 3 Treatment #(07-17): 15 PHQ-9 Pre-Treatment (07-14): 20 PHQ-9 Most Recent (07-14): 20 Reviewed: TMS Tech Note Reviewed Verification: I have reviewed the TMS Supervisor Cutting And Boning Note and agree with the contents. The patient remains a candidate to continue TMS treatment per pr otocol.
--- NOTE | 2021-05-06 16:25 | P.PNPS_ITS ---
TMS Daily Progress Note Daily TMS Progress Note Date of Service: 05/07/21 Week #: 4 Treatment #(07-17): 16 PHQ-9 Pre-Treatment (07-14): 20 PHQ-9 Most Recent (07-14): 20 Reviewed: TMS Tech Note Reviewed Verification: I have reviewed the TMS Motorboat Mechanic Inboard Note and agree with the contents. The patient remains a candidate to continue TMS treatment per pr otocol.
--- NOTE | 2021-05-09 23:34 | HO.TMSDAILY2 ---
TMS Daily Progress Note Daily TMS Progress Note Date of Service: 05/09/21 Week #: 4 Treatment #(07-17): 17 PHQ-9 Pre-Treatment (07-14): 20 PHQ-9 Most Recent (07-14): 20 Reviewed: TMS Tech Note Reviewed Verification: I have reviewed the TMS Campground Attendant Note and agree with the contents. The patient remains a candidate to continue TMS treatment per protocol.
--- NOTE | 2021-05-10 22:07 | P.PNPS_ITS ---
TMS Daily Progress Note Daily TMS Progress Note Date of Service: 05/10/21 Week #: 4 Treatment #(07-17): 18 PHQ-9 Pre-Treatment (07-14): 20 PHQ-9 Most Recent (07-14): 20 Reviewed: TMS Tech Note Reviewed Verification: I have reviewed the TMS Upkeep Worker Note and agree with the contents. The patient remains a candidate to continue TMS treatment per pr otocol. Assessment and Plan (1) Major depressive disorder, recurrent episode with anxious distress: Status: Acute cont tx plan monitor mood anxiety generally improving
--- NOTE | 2021-05-11 16:26 | HO.TMSDAILY2 ---
TMS Daily Progress Note Daily TMS Progress Note Date of Service: 05/11/21 Week #: 4 Treatment #(07-17): 19 PHQ-9 Pre-Treatment (07-14): 20 PHQ-9 Most Recent (07-14): 20 Reviewed: TMS Tech Note Reviewed Verification: I have reviewed the TMS High Density Finishing Operator Note and agree with the contents. The patient remains a candidate to continue TMS treatment per protocol.
--- NOTE | 2021-05-16 23:07 | P.PNPS_ITS ---
TMS Daily Progress Note Daily TMS Progress Note Date of Service: 05/16/21 Week #: 4 Treatment #(07-17): 20 PHQ-9 Pre-Treatment (07-14): 20 PHQ-9 Most Recent (07-14): 20 Reviewed: TMS Tech Note Reviewed Verification: I have reviewed the TMS Electric Switch Tester Note and agree with the contents. The patient remains a candidate to continue TMS treatment per pr otocol.
--- NOTE | 2021-05-17 23:20 | HO.TMSDAILY2 ---
TMS Daily Progress Note Daily TMS Progress Note Date of Service: 05/17/21 Week #: 5 Treatment #(07-17): 21 PHQ-9 Pre-Treatment (07-14): 20 PHQ-9 Most Recent (07-14): 20 Reviewed: TMS Tech Note Reviewed Verification: I have reviewed the TMS Tdp Displays Analyst Note and agree with the contents. The patient remains a candidate to continue TMS treatment per protocol.
--- NOTE | 2021-05-18 22:08 | P.PNPS_ITS ---
TMS Daily Progress Note Daily TMS Progress Note Date of Service: 05/18/21 Week #: 5 Treatment #(07-17): 22 PHQ-9 Pre-Treatment (07-14): 20 PHQ-9 Most Recent (07-14): 20 Reviewed: TMS Tech Note Reviewed Verification: I have reviewed the TMS Heavy Truck Mechanic Note and agree with the contents. The patient remains a candidate to continue TMS treatment per pr otocol. Assessment and Plan (1) Major depressive disorder, recurrent episode with anxious distress: Status: Acute cont tx plan monitor mood anxiety generally improving
--- NOTE | 2021-05-20 23:42 | HO.TMSDAILY2 ---
TMS Daily Progress Note Daily TMS Progress Note Date of Service: 05/19/21 Week #: 5 Treatment #(07-17): 22 PHQ-9 Pre-Treatment (07-14): 20 PHQ-9 Most Recent (07-14): 20 Reviewed: TMS Tech Note Reviewed Verification: I have reviewed the TMS Motion Picture Film Examiner Note and agree with the contents. The patient remains a candidate to continue TMS treatment per protocol.
--- NOTE | 2021-05-20 23:44 | P.PNPS_ITS ---
TMS Daily Progress Note Daily TMS Progress Note Date of Service: 05/23/21 Week #: 5 Treatment #(07-17): 23 PHQ-9 Pre-Treatment (07-14): 20 PHQ-9 Most Recent (07-14): 20 Reviewed: TMS Tech Note Reviewed Verification: I have reviewed the TMS Cabinetmaker Helper Note and agree with the contents. The patient remains a candidate to continue TMS treatment per pr otocol.
--- NOTE | 2021-05-23 23:45 | HO.TMSDAILY2 ---
TMS Daily Progress Note Daily TMS Progress Note Date of Service: 05/23/21 Week #: 5 Treatment #(07-17): 24 PHQ-9 Pre-Treatment (07-14): 20 PHQ-9 Most Recent (07-14): 20 Reviewed: TMS Tech Note Reviewed Verification: I have reviewed the TMS Etch Operator Semiconductor Wafers Note and agree with the contents. The patient remains a candidate to continue TMS treatment per protocol.
--- NOTE | 2021-05-25 23:44 | HO.TMSDAILY2 ---
TMS Daily Progress Note Daily TMS Progress Note Date of Service: 05/25/21 Week #: 6 Treatment #(07-17): 27 PHQ-9 Pre-Treatment (07-14): 20 PHQ-9 Most Recent (07-14): 20 Reviewed: TMS Tech Note Reviewed Verification: I have reviewed the TMS Machine Cleaner Note and agree with the contents. The patient remains a candidate to continue TMS treatment per protocol.
--- NOTE | 2021-05-30 22:43 | HO.TMSDAILY2 ---
TMS Daily Progress Note Daily TMS Progress Note Date of Service: 05/26/21 Week #: 6 Treatment #(07-17): 28 PHQ-9 Pre-Treatment (07-14): 20 PHQ-9 Most Recent (07-14): 20 Reviewed: TMS Tech Note Reviewed Verification: I have reviewed the TMS Molecular Genetic Pathologist Note and agree with the contents. The patient remains a candidate to continue TMS treatment per protocol.
--- NOTE | 2021-05-30 22:53 | P.PNPS_ITS ---
TMS Daily Progress Note Daily TMS Progress Note Date of Service: 05/30/21 Week #: 6 Treatment #(07-17): 29 PHQ-9 Pre-Treatment (07-14): 20 PHQ-9 Most Recent (07-14): 20 Reviewed: TMS Tech Note Reviewed Verification: I have reviewed the TMS Production Floater Note and agree with the contents. The patient remains a candidate to continue TMS treatment per pr otocol.
--- NOTE | 2021-05-31 22:32 | HO.TMSDAILY2 ---
TMS Daily Progress Note Daily TMS Progress Note Date of Service: 05/31/21 Week #: 6 Treatment #(07-17): 30 PHQ-9 Pre-Treatment (07-14): 20 PHQ-9 Most Recent (07-14): 20 Reviewed: TMS Tech Note Reviewed Verification: I have reviewed the TMS Computer Systems Administrator Note and agree with the contents. The patient remains a candidate to continue TMS treatment per protocol. Assessment and Plan (1) Major depressive disorder, recurrent episode with anxious distress: Status: Acute cont tx plan monitor mood anxiety generally improving ongoing
--- NOTE | 2021-06-01 23:10 | P.PNPS_ITS ---
TMS Daily Progress Note Daily TMS Progress Note Date of Service: 06/01/21 Week #: 7 Treatment #(07-17): 31 PHQ-9 Pre-Treatment (07-14): 20 PHQ-9 Most Recent (07-14): 20 Reviewed: TMS Tech Note Reviewed Verification: I have reviewed the TMS Greenhouse Assistant Note and agree with the contents. The patient remains a candidate to continue TMS treatment per pr otocol.
--- NOTE | 2021-06-02 23:12 | P.PNPS_ITS ---
TMS Daily Progress Note Daily TMS Progress Note Date of Service: 06/02/21 Week #: 7 Treatment #(07-17): 32 PHQ-9 Pre-Treatment (07-14): 20 PHQ-9 Most Recent (07-14): 20 Reviewed: TMS Tech Note Reviewed Verification: I have reviewed the TMS Supervisor Paper Coating Note and agree with the contents. The patient remains a candidate to continue TMS treatment per pr otocol.
--- NOTE | 2021-06-03 17:20 | P.PNPS_ITS ---
TMS Daily Progress Note Daily TMS Progress Note Date of Service: 06/03/21 Week #: 7 Treatment #(07-17): 33 PHQ-9 Pre-Treatment (07-14): 20 PHQ-9 Most Recent (07-14): 20 Reviewed: TMS Tech Note Reviewed Verification: I have reviewed the TMS Metal Washing Machine Operator Note and agree with the contents. The patient remains a candidate to continue TMS treatment per pr otocol. Assessment and Plan (1) Major depressive disorder, recurrent episode with anxious distress: Status: Acute cont tx plan monitor mood anxiety generally improving ongoing responding well
--- NOTE | 2021-06-06 17:21 | HO.TMSDAILY2 ---
TMS Daily Progress Note Daily TMS Progress Note Date of Service: 06/06/21 Week #: 7 Treatment #(07-17): 34 PHQ-9 Pre-Treatment (07-14): 20 PHQ-9 Most Recent (07-14): 20 Reviewed: TMS Tech Note Reviewed Verification: I have reviewed the TMS Forge Shop Machine Repairer Note and agree with the contents. The patient remains a candidate to continue TMS treatment per protocol. Assessment and Plan (1) Major depressive disorder, recurrent episode with anxious distress: Status: Acute cont tx plan monitor mood anxiety generally improving ongoing responding well
--- NOTE | 2021-06-08 08:49 | P.PNPS_ITS ---
TMS Daily Progress Note Daily TMS Progress Note Date of Service: 06/07/21 Week #: 8 Treatment #(07-17): 35 PHQ-9 Pre-Treatment (07-14): 20 PHQ-9 Most Recent (07-14): 20 Reviewed: TMS Tech Note Reviewed Verification: I have reviewed the TMS Assessment Technician Note and agree with the contents. The patient remains a candidate to continue TMS treatment per pr otocol. Assessment and Plan (1) Major depressive disorder, recurrent episode with anxious distress: Status: Acute (2) Generalized anxiety disorder: Status: Acute (3) Post traumatic stress disorder (PTSD): Status: Acute Patient with significant improvement in mood and stability
--- NOTE | 2021-06-08 23:09 | HO.TMSDAILY2 ---
TMS Daily Progress Note Daily TMS Progress Note Date of Service: 06/08/21 Week #: 8 Treatment #(07-17): 36 PHQ-9 Pre-Treatment (07-14): 20 PHQ-9 Most Recent (07-14): 20 Reviewed: TMS Tech Note Reviewed Verification: I have reviewed the TMS Surface To Air Weapons Officer Note and agree with the contents. The patient remains a candidate to continue TMS treatment per protocol. Assessment and Plan (1) Major depressive disorder, recurrent episode with anxious distress: Status: Acute (2) Generalized anxiety disorder: Status: Acute (3) Post traumatic stress disorder (PTSD): Status: Acute Patient with significant improvement in mood and stability has completed ECT protocol excellent response no difficulties noted
== END 2021-06-09 12:04 | disposition home or self-care (01) ==
LOC: HO.PTMS 11:00
PROVIDERS: PCP Family Medicine; Visit Provider Psychiatry & Neurology Psychiatry
DX: F33.9 Major depressive disorder, recurrent, unspecified (principal); F43.10 Post-traumatic stress disorder, unspecified; F41.1 Generalized anxiety disorder
CPT/HCPCS: 90867; 90868

== ENCOUNTER → 2021-06-14 09:40 | Outpatient (BNVA) | payer OTHER, SELFPAY | PROVIDERS: PCP Hospitalist; Referring Provider Hospitalist; Visit Provider Nurse Practitioner Family ==

== ENCOUNTER 2021-06-15 08:44 | Outpatient (REF) | payer OTHER, SELFPAY ==
[2021-06-16 04:52] LABS: CT PCR NOT DETECTED (Not Detect.); NG PCR NOT DETECTED (Not Detect.)
[2021-06-16 09:42] LABS: BV Int Neg Control Negative (Negative); BV Int Pos Control Positive (Positive)
== END 2021-06-15 08:45 | disposition home or self-care (01) ==
LOC: HO.LAB 08:44
PROVIDERS: PCP Hospitalist; Visit Provider Advanced Practice Midwife
DX: Z34.91 Encounter for supervision of normal pregnancy, unspecified, first trimester (principal); Z3A.12 12 weeks gestation of pregnancy; Z20.2 Contact with and (suspected) exposure to infections with a predominantly sexual mode of transmission
CPT/HCPCS: 81003; 87480; 87491; 87510; 87591; 87660; 88142; 99212

== ENCOUNTER 2021-06-24 14:40 | Outpatient (REF) | payer OTHER, SELFPAY ==
--- NOTE | ~2021-06-24 | US_ITS ---
EXAMINATION: OBSTETRICAL ULTRASOUND, FIRST TRIMESTER HISTORY: 26-year-old at the 13.2 weeks of gestation NT screening COMPARISON: 05/06/2021 TECHNIQUE: Real time transabdominal imaging with color and M-mode Doppler. FINDINGS: A single, live IUP CRL of 81.7 mm c/w 14.1wks is noted. Heart Rate: 156 beats per minute. Normal yolk sac seen. NT was 1.2.mm. NB Present The embryo appears sonographically wnl for this GA. Both maternal ovaries are seen and appear normal. GESTATIONAL AGE: 1. Established GA: 13.2 wks 2. GA from [facility]: 14.1 wks ESTIMATED DATE OF DELIVERY: 1. Established ENRRIQUE: 12/28/2021 2. ENRRIQUE from [facility]: 12/22/2021 US/US OB 1T nuc measure IMPRESSION: 1. A single live IUP 2. Size equals dates 3. NT of 1.2 mm MFM Consultation: I reviewed the ultrasound findings along with significance of NT measurement. The NT of less than 3mm is generally reassuring. However, the sensitivity for T21 detection is only 60%. I reviewed the availability of serum aneuploidy screening which includes cell-free DNA and placental protein based tests. I discussed the sensitivity, false-positive rate, and other limitations associated with each test. I also reviewed the availability of invasive diagnostic tests that are associated small but definite risk of miscarriage. We also reviewed the differences between screening tests and diagnostic tests. After our discussion, she opted for the First trimester screening that is based on cell-free DNA or non-invasive testing (NIPT). She had 2 first trimester miscarriages. 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 She has a history of anxiety and depression. Currently doing well without medication. A follow up at 18 weeks for survey has been scheduled. Thank you very much for this referral. Total time 30 minutes. The time spent was devoted to counseling the patient about the disease and diagnosis, coordinating care including reviewing her records, pertinent lab data and studies, as well as discussing diagnostic evaluation and workup, plan therapeutic interventions and future disposition of care. This includes any additional research needed to obtain further information in formulating the plan of care of this patient. This note was generated with a voice recognition program. Please excuse any errors which may have been overlooked during my review of this note. Sometimes these errors may affect the content or meaning of a given sentence.
== END 2021-06-24 14:41 | disposition home or self-care (01) ==
LOC: HO.US 14:40
PROVIDERS: Visit Provider Advanced Practice Midwife
DX: Z34.92 Encounter for supervision of normal pregnancy, unspecified, second trimester (principal); Z3A.14 14 weeks gestation of pregnancy
CPT/HCPCS: 76813

== ENCOUNTER → 2021-07-14 08:12 | Outpatient (BNVA) | payer OTHER, SELFPAY | PROVIDERS: PCP Hospitalist; Visit Provider Advanced Practice Midwife | DX: O26.892 Other specified pregnancy related conditions, second trimester (principal); R51.9 Headache, unspecified; Z3A.16 16 weeks gestation of pregnancy | CPT/HCPCS: 81003; 99212 ==

== ENCOUNTER → 2021-07-19 07:30 | Outpatient (REF) | payer OTHER, SELFPAY ==
--- NOTE | 2021-07-19 07:36 | HM_ITS ---
Conclusion: 1. Patient was monitored for total period of 3 days and 23 hours 2. Baseline was normal sinus rhythm with average heart of 84 beats per minute 3. No significant pauses or bradycardia noted 4. No significant tachyarrhythmias noted 5. No patient reported events. MTDD
== END ==
LOC: HO.CARD 07:30
PROVIDERS: Visit Provider Internal Medicine Cardiovascular Disease
DX: R00.2 Palpitations (principal)
CPT/HCPCS: 93242

== ENCOUNTER 2021-08-05 12:06 | Outpatient (REF) | payer OTHER, SELFPAY ==
--- NOTE | ~2021-08-05 | US_ITS ---
EXAMINATION: US OBSTETRICAL CLINICAL INFORMATION: 26-year-old at 19.2 weeks of gestation Screening for anomaly COMPARISON: 06/24/2021 TECHNIQUE: Real-time transabdominal ultrasound was performed using C1-5 megahertz transducer. FINDINGS: A single, active, fetus is seen in vertex presentation. The placenta is anterior, and the amniotic fluid volume is wnl. MEASUREMENTS: 1. Biparietal Diameter: 4.9 cm; 20.5 wks 2. Occipital Frontal Diameter: 6.4 cm 3. Head Circumference: 18.1 cm; 20.4 wks 4. Abdominal Circumference: 14.4 cm; 19.6 wks 5. Femur Length: 3.1 cm; 19.6 wks 6. Humerus Length: 3.1 cm; 20.3 wks 7. Tibia Length: 2.8 cm; 20.1 wks 8. Ulna Length: 2.8 cm; 20.2 wks 9. Lateral ventricle: 0.8 cm 10. Cerebellum: 1.9 cm; 19.6 wks 11. Cisterna Magna: 0.43 cm 12. Nuchal Fold: 3.9 mm 13. Heart Rate: 144 beats per minute Rt ovary: normal Lt ovary: normal Cervical length 3.6 cm on T/A. GESTATIONAL AGE: 1. Established GA: 19.2 wks 2. GA from [facility]: 20.2 wks ESTIMATED DATE OF DELIVERY: 1. Established ENRRIQUE: 12/28/2021 2. ENRRIQUE from [facility]: 12/21/2021 ANATOMY: The visualized anatomy includes but not limited to: 1. Cranium: Normal 2. Intracranial anatomy: cavum septum pellucidi, lateral ventricles, choroid plexus, cerebellum, posterior fossa, third and fourth ventricles. 3. face: orbits, lip/palate, profile, nasal bone 4. Heart: four-chamber view of the heart, ventricular septum, foramen ovale, pulmonary vein, left and right outflow tracts, three-vessel view, 3 vessel trachea view, aortic and ductal arches, situs.. 5. Diaphragm: Normal 6. Abdominal wall: Normal 7. Cord Insertion: Normal 8. Spine: Cervical, thoracic, lumbar, sacral. 9. Stomach: Normal size and shape 10. Right Kidney: Normal 11. Left Kidney: Normal 12. 3 vessel cord: Normal 13. Upper extremity: Open hands, fifth digit. 14. Lower extremity: Tibia, fibula, bilateral feet. 15. Bladder: Normal 16. Genitalia: Male, patient aware US/US OB /maternal detail IMPRESSION: 1. Single, living, intrauterine with appropriate biometry. 2. Normal survey DISCUSSION: I reviewed today's ultrasound findings. We discussed the limitations of ultrasound in diagnosing aneuploidy and other congenital abnormalities. I reviewed the differences between screening test and diagnostic test. Amniocentesis was discussed and declined. She was informed that the baseline incidence of congenital abnormalities is approximately 3-5%. Not all these conditions are diagnosable in utero. RECOMMENDATIONS: 1. Follow-up when necessary Thank you for allowing me to participate in her care. This note was generated with a voice recognition program. Please excuse any errors which may have been overlooked during my review of this note. Sometimes these errors may affect the content or meaning of a given sentence.
== END 2021-08-05 12:07 | disposition home or self-care (01) ==
LOC: HO.US 12:06
PROVIDERS: Visit Provider Advanced Practice Midwife
DX: Z34.02 Encounter for supervision of normal first pregnancy, second trimester (principal); Z3A.19 19 weeks gestation of pregnancy
CPT/HCPCS: 76811

== ENCOUNTER 2021-08-10 08:15 | Outpatient (REF) | payer OTHER, SELFPAY | END 2021-08-10 08:16 | disposition home or self-care (01) | LOC: HO.LAB 08:15 | PROVIDERS: PCP Hospitalist; Visit Provider Obstetrics & Gynecology | DX: O26.892 Other specified pregnancy related conditions, second trimester (principal); R31.29 Other microscopic hematuria; Z3A.20 20 weeks gestation of pregnancy | CPT/HCPCS: 87086; 99212 ==

== ENCOUNTER 2022-01-27 15:11 | Outpatient (REF) | payer OTHER, SELFPAY ==
[2022-01-28 15:08] LABS: BV Int Neg Control Negative (Negative); BV Int Pos Control Positive (Positive)
== END 2022-01-27 15:12 | disposition home or self-care (01) ==
LOC: HO.LAB 15:11
PROVIDERS: Visit Provider Advanced Practice Midwife
DX: N76.0 Acute vaginitis (principal)
CPT/HCPCS: 87480; 87510; 87660

== ENCOUNTER 2022-03-14 11:04 | Outpatient (REF) | payer OTHER, SELFPAY ==
[2022-03-14 13:10] LABS: MANUAL DIFF FLAG NO
[2022-03-14 13:13] LABS: Basophils Absolute Auto 0.1 X10*3/uL (0.0-0.2); Basophils Percent Auto 0.6 % (0-2); Eosinophils Absolute Auto 0.3 X10*3/uL (0.0-0.4); Eosinophils Percent Auto 4.2 % (0-4); Hemoglobin 14.1 g/dl (12.0-16.0); Imm Gran Abs Auto 0.05 X10*3/uL (0.00-0.03); Imm Gran Pct Auto 0.6 % (0.0-0.4); Lymphocytes Absolute Auto 1.8 X10*3/uL (1.2-4.9); Lymphocytes Percent Auto 22.1 % (20-40); Mean Corpuscular HGB Conc 33.6 g/dl (31.0-35.0); Mean Corpuscular Hemoglobin 29.5 pg (27.0-33.0); Mean Corpuscular Volume 87.9 fL (80.0-98.0); Monocytes Absolute Auto 0.5 X10*3/uL (0.1-1.2); Monocytes Percent Auto 5.6 % (2-11); Neutrophils Absolute Auto 5.5 x10*3/uL (2.0-8.3); Neutrophils Percent Auto 66.9 % (45-73); Platelet Count 265 X10*3/uL (160-400); Red Blood Count 4.78 X10*6/uL (4.20-5.50); White Blood Count 8.2 X10*3/uL (4.8-10.8)
[2022-03-14 13:29] LABS: Alanine Aminotransferase 68 U/L (0-31); Albumin Level 4.5 g/dL (3.5-5.0); Alkaline Phosphatase 109 U/L (39-117); Anion Gap 14 (12-20); Aspartate Amino Transferase 35 U/L (5-31); Bilirubin Total 0.2 mg/dL (0.0-1.0); Blood Urea Nitrogen 12 mg/dL (9-16); Carbon Dioxide 24 mmol/L (22-29); Chloride 105 mmol/L (96-108); Estimated Glomerular Filt Rate > 60; Glucose Random 95 mg/dL (60-115); Potassium 4.3 mmol/L (3.3-5.1); Sodium 139 mmol/L (135-145); Total Protein 7.4 g/dL (6.5-8.0)
== END 2022-03-14 11:05 | disposition home or self-care (01) ==
LOC: HO.WFDLDS 11:04
PROVIDERS: Visit Provider Family Medicine
DX: Z00.00 Encounter for general adult medical examination without abnormal findings (principal); F33.9 Major depressive disorder, recurrent, unspecified
CPT/HCPCS: 36415; 80053; 84443; 85025

== ENCOUNTER → 2022-03-28 13:32 | Outpatient (BNVA) | payer OTHER, SELFPAY | PROVIDERS: PCP Family Medicine; Referring Provider Family Medicine; Visit Provider Internal Medicine Cardiovascular Disease | DX: I49.8 Other specified cardiac arrhythmias (principal) | CPT/HCPCS: 93005 ==

== ENCOUNTER 2022-04-06 09:41 | Outpatient (REF) | payer OTHER, SELFPAY ==
[2022-04-06 12:35] LABS: Alanine Aminotransferase 40 U/L (0-31); Albumin Level 4.3 g/dL (3.5-5.0); Alkaline Phosphatase 98 U/L (39-117); Anion Gap 17 (12-20); Aspartate Amino Transferase 25 U/L (5-31); Bilirubin Total 0.3 mg/dL (0.0-1.0); Blood Urea Nitrogen 12 mg/dL (9-16); Calcium 9.1 mg/dL (8.4-10.2); Carbon Dioxide 23 mmol/L (22-29); Chloride 106 mmol/L (96-108); Cholesterol 204 mg/dL; Estimated Glomerular Filt Rate > 60; Glucose Fasting 88 mg/dL (60-99); HDL Cholesterol 43 mg/dL; LDL Cholesterol Calculated 138 mg/dl; Potassium 4.5 mmol/L (3.3-5.1); Sodium 141 mmol/L (135-145); Total Protein 7.2 g/dL (6.5-8.0); Triglycerides 115 mg/dL
[2022-04-11 05:43] LABS: Transglutaminase IgA <1.0 U/mL
== END 2022-04-06 09:42 | disposition home or self-care (01) ==
LOC: HO.WFDLDS 09:41
PROVIDERS: Visit Provider Family Medicine
DX: Z00.00 Encounter for general adult medical examination without abnormal findings (principal); R10.9 Unspecified abdominal pain; R74.8 Abnormal levels of other serum enzymes
CPT/HCPCS: 36415; 80053; 80061; 86364

== ENCOUNTER 2022-04-10 12:03 | Outpatient (REF) | payer OTHER, SELFPAY ==
[2022-04-11 14:01] LABS: H Pylori Breath Test Negative (Negative)
== END 2022-04-10 12:04 | disposition home or self-care (01) ==
LOC: HO.LNP 12:03
PROVIDERS: Visit Provider Physician Assistant
DX: A04.8 Other specified bacterial intestinal infections (principal)
CPT/HCPCS: 83013

== ENCOUNTER 2022-05-05 10:23 | Outpatient (REF) | payer OTHER, SELFPAY ==
--- NOTE | ~2022-05-05 | US_ITS ---
EXAMINATION: US ABDOMEN COMPLETE CLINICAL INFORMATION: Unspecified abdominal pain. COMPARISON: None TECHNIQUE: Real-time imaging of the abdominal viscera. FINDINGS: PANCREAS: Normal. ABDOMINAL AORTA: The proximal, mid, and distal segments are normal in caliber. INFERIOR VENA CAVA: Visualized portions are normal. LIVER: The liver is normal in size. The liver contour is normal. There is diffuse increased liver parenchymal echogenicity. No focal hepatic lesion. There is no intrahepatic biliary duct dilatation seen. GALLBLADDER: Normal. The gallbladder is physiologically distended without evidence of stones, sludge, polyps, wall thickening or pericholecystic fluid. COMMON BILE DUCT: Normal in caliber measuring 0.3 cm in diameter. RIGHT KIDNEY: Normal. No hydronephrosis. No renal calculi or focal parenchymal lesions. The kidney measures 10 cm in maximum dimension. The right kidney appears to be ptotic and somewhat malrotated. LEFT KIDNEY: Normal. No hydronephrosis. No renal calculi or focal parenchymal lesions. The kidney measures 11.3 cm in maximum dimension. SPLEEN: Normal. The spleen measures 9.4 cm in maximum dimension. FREE FLUID: None. US/US abdomen complete IMPRESSION: 1. There is generalized increase in hepatic echotexture, consistent with fatty infiltration or hepatocellular disease. Please correlate clinically. No focal hepatic mass or intrahepatic biliary dilatation is seen. 2. Otherwise, unremarkable examination.
== END 2022-05-05 10:24 | disposition home or self-care (01) ==
LOC: HO.US 10:23
PROVIDERS: Visit Provider Physician Assistant
DX: R10.9 Unspecified abdominal pain (principal); G89.29 Other chronic pain
CPT/HCPCS: 76700

== ENCOUNTER → 2022-06-13 08:00 | Outpatient (BNVA) | payer OTHER, SELFPAY | PROVIDERS: PCP Family Medicine; Visit Provider Advanced Practice Midwife | DX: Z01.419 Encounter for gynecological examination (general) (routine) without abnormal findings (principal) ==

== ENCOUNTER 2022-07-26 13:28 | Outpatient (REF) | payer OTHER, SELFPAY ==
[2022-07-26 15:10] LABS: Alanine Aminotransferase 18 U/L (0-31); Albumin Level 4.3 g/dL (3.5-5.0); Alkaline Phosphatase 114 U/L (39-117); Aspartate Amino Transferase 18 U/L (5-31); Bilirubin Direct < 0.2 mg/dL (0.0-0.5); Bilirubin Total 0.3 mg/dL (0.0-1.0); Total Protein 7.1 g/dL (6.5-8.0)
== END 2022-07-26 13:29 | disposition home or self-care (01) ==
LOC: HO.LAB 13:28
PROVIDERS: PCP Family Medicine; Visit Provider Physician Assistant
DX: R10.11 Right upper quadrant pain (principal)
CPT/HCPCS: 36415; 80076

== ENCOUNTER → 2022-07-27 07:54 | Outpatient (BNVA) | payer OTHER, SELFPAY | PROVIDERS: PCP Family Medicine; Referring Provider Family Medicine; Visit Provider Physician Assistant | DX: Z13.89 Encounter for screening for other disorder (principal) ==

== ENCOUNTER → 2022-08-25 08:13 | Outpatient (BNVA) | payer OTHER, SELFPAY | PROVIDERS: PCP Family Medicine; Visit Provider Nurse Practitioner Family | DX: Z13.89 Encounter for screening for other disorder (principal) ==

== ENCOUNTER 2022-09-12 13:05 | Day surgery (SDC) | payer OTHER, SELFPAY ==
[2022-09-07 11:18] VITALS: BMI 28.7
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
[2022-09-12 13:52] VITALS: BMI 30.2
[2022-09-12 14:00] VITALS: BP 105/58; PULSE 75; RESP 16; TEMP 36.4; O2SAT 100
[2022-09-12 14:03] LABS: UPreg QC Valid YES
[2022-09-12 14:04] LABS: Urine Pregnancy NEGATIVE (NEGATIVE)
[2022-09-12] MEDS: Lactated Ringers 1,000 ML 100 ML IVCONT (14:10)
--- NOTE | 2022-09-12 14:46 | P.HPSUR_ITS ---
Pre-Procedural Eval Section A Date of Service: 09/12/22 Section B Chief Complaint: Unspecified abdominal pain Relevant Family History (Specify if Yes): No Relevant Social History: None Present Medications: see Short Stay Collaborative assessment Medical History: Significant History (Anxiety Degenerated intervertebral disc Fibromyalgia Homozygous MTHFR mutation C677T Migraine without aura Psoriatic arthritis PTSD (post-traumatic stress disorder) Sleep behavior disorder, REM Vasovagal syncope Vitamin D deficiency) History of Previous Operations: Relevant previous surgery/procedure and date(s) (History of hysteroscopy History of tonsillectomy and adenoidectomy History of wisdom tooth extraction) Allergies: Allergies Allergy/AdvReac Type Severity Reaction Status Date / Time banana Allergy Severe Unresponsiv Verified 09/07/22 11:16 e chocolate flavor Allergy Severe hives with Verified 08/25/22 08:29 airway swelling codeine [CODEINE] Allergy Intermediate anxiety Verified 08/25/22 08:29 gluten Allergy Intermediate abdominal Verified 08/25/22 08:29 pain and bloating latex Allergy Intermediate Swelling Verified 09/07/22 11:16 avocado Allergy Unknown Unknown Verified 09/07/22 11:16 kiwi Allergy Unknown Unknown Verified 09/07/22 11:16 Review of Systems Sugical H&P ROS: Negative: Constitution, Cardiovascular, Respiratory, Neurological, Psychiatric, Hem-Onc, Allergic/Immunologic, Gastrointestinal, Genitourinary, Musculoskeletal, Integumentary, Endocrine and Eyes/Ears/Nose/Throat Exam Surgical H&P Exam: Normal: HEENT, Normal: Heart, Normal: Lungs, Normal: Ex tremities, Normal: Abdomen, Normal: Skin and Normal: Neurological Plan Diagnosis/Plan: Unchanged I have reviewed the history and physical and performed a pertinent physical examination on my patient. No changes have occurred unless specified. Time Spent With Patient Time: Total time managing care of this patient today ____ minutes.
--- NOTE | 2022-09-12 14:48 | W.PM.OPN ---
Operative Note Operative Note Date of Service: 09/12/22 Narrative: Procedure Description: EGD Indication: epigastric pain Anesthesia: MAC FLEXIBLE TRANSORAL UPPER GASTROINTESTINAL ENDOSCOPY UPPER ENDOSCOPY Consent: Indications for the procedure and potential complications of bleeding, perforation, reaction to medications and missed diagnosis were discussed with the patient and informed consent was obtained. Instrument: Olympus GIF H 190 J mid size upper endoscope Monitoring: Vital signs and clinical assessment, continuous EKG monitoring, Pulse oximetry, Carbon Dioxide monitoring and blood pressure monitoring were done throughout the procedure. Procedure: The patient was placed in the left lateral decubitis position and pre-procedure medications were administered and a bite block was placed. The endoscope was inserted into the mouth and advanced under direct vision to the third part of duodenum. A careful inspection was made as the upper endoscope was withdrawn including a retroflexed examination of the proximal stomach; Findings and interventions are described below. Findings: Larynx:normal Esophagus: GE junction at 36 cm, diaphragm hiatus at 36 cm, bogginess,erythema and nodularity at GEJ with erosion noted, bx taken, as well as from distal and proximal esophagus in separate jars. Stomach: Mild patchy gastric erythema. Biopsies were obtained. Grade 2 flap valve on retroflexed examination of the cardia. The LEs was v lax. Duodenum: Normal bulb and descending duodenum, bx taken Intervention: Biopsies as noted above Impression/Findings: lax LES erosive esophagitis mild gastritis PLAN: high dose PPI for 3 months and repeat EGD in 3-4 months to see if improved if h pylori pos then treat
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
[2022-09-12 15:43] VITALS: BP 109/56; PULSE 91; RESP 16; TEMP 37.6; O2SAT 97
--- NOTE | 2022-09-12 15:44 | HO.POSTANES ---
Post Anesthesia Evaluation Post Anesthesia Evaluation Vital Signs: Vital Signs Temp Pulse Resp BP Pulse Ox O2 Del Method 09/12/22 14:00 97.5 F 75 16 105/58 L 100 Room Air Anesthesia: Monitored Pain Control: Satisfactory Nausea/Vomiting: None Hydration: Adequate Anesthesia-Related Issues: No Anes. Related Issues
[2022-09-12 16:01] VITALS: BP 116/67; PULSE 70; RESP 18; TEMP 36.7; O2SAT 100
== END 2022-09-12 16:08 | disposition home or self-care (01) ==
PROVIDERS: Nurse Practitioner; PCP Family Medicine; Visit Provider Internal Medicine Gastroenterology
PROC: 0DJ08ZZ Inspection of Upper Intestinal Tract, Via Natural or Artificial Opening Endoscopic (ICD-10-PCS; CPT 43235; principal; 2022-09-12 15:00)
DX: K29.50 Unspecified chronic gastritis without bleeding (principal); K22.4 Dyskinesia of esophagus; K20.80 Other esophagitis without bleeding; K44.9 Diaphragmatic hernia without obstruction or gangrene; M79.7 Fibromyalgia; L40.50 Arthropathic psoriasis, unspecified; E72.12 Methylenetetrahydrofolate reductase deficiency; E55.9 Vitamin D deficiency, unspecified; R55 Syncope and collapse; G43.009 Migraine without aura, not intractable, without status migrainosus; G47.8 Other sleep disorders; F41.1 Generalized anxiety disorder; F43.10 Post-traumatic stress disorder, unspecified; Z88.8 Allergy status to other drugs, medicaments and biological substances; Z91.040 Latex allergy status
CPT/HCPCS: 43239; 81025; 88305; 88342

== ENCOUNTER → 2022-09-18 10:58 | Outpatient (BNVA) | payer OTHER, SELFPAY | PROVIDERS: PCP Family Medicine; Visit Provider Internal Medicine Gastroenterology | DX: Z13.89 Encounter for screening for other disorder (principal) ==

== ENCOUNTER → 2022-10-11 07:57 | Outpatient (REF) | payer OTHER, SELFPAY ==
--- NOTE | ~2022-10-11 | NM_ITS ---
EXAMINATION: RADIONUCLIDE SOLID FOOD GASTRIC EMPTYING 4-HOUR STUDY CLINICAL INFORMATION: Early satiety. COMPARISON: No previous gastric emptying study is available for comparison. TECHNIQUE: A standard meal consisting of 4 oz of Egg Beaters brand equivalent tagged with 880 microcuries Tc-99m Sulfur Colloid, 8 oz water and 2 slices of toast with jelly was administered orally to the patient. Images were obtained using a dual head gamma camera in the anterior and posterior projections over of the stomach immediately post ingestion and at hourly intervals up to 4 hours post ingestion. The anterior and posterior counts at each time interval were averaged using the geometric mean and expressed as percentage of the immediate post ingestion counts. FINDINGS: There is good visualization of activity in the stomach immediately post ingestion. As the study progresses, there is fair clearance of activity from the stomach and visualization of progressively increasing small bowel activity. However, at the end of the study there is mild abnormal retention of solid food in the stomach at 4 hours. Retention in the stomach at each time interval was: 1 hour 89% (normal 37%-90%) 2 hours 71% (normal 30%-60%) 3 hours 32% 4 hours 20% (normal 0%-10%) NM/NM gastric emptying study IMPRESSION: Abnormal study. There is mild abnormal retention of solid food in the stomach at 4 hours. Gastric emptying study grading per JNMT Consensus Recommendations in 2008 (https://tech.snmjournals.org/content/36/44) Grade 1 (mild retention): 11-20% at 4h Grade 2 (moderate retention): 21-35% at 4h Grade 3 (severe retention): 36-50% at 4h Grade 4 (very severe retention): >50% retention at 4h
== END ==
LOC: HO.NUCMED 07:57
PROVIDERS: PCP Family Medicine; Visit Provider Internal Medicine Gastroenterology
DX: R68.81 Early satiety (principal)
CPT/HCPCS: 78264; A9541

== ENCOUNTER 2022-10-19 08:02 | Outpatient (REF) | payer OTHER, SELFPAY ==
[2022-10-21 06:24] LABS: Immunoglobulin E 4 kU/L (<OR=114)
[2022-10-29 16:02] LABS: Histamine Release <16 % (<16); TSH 1.72 mIU/L (0.40-4.50); Thyroglobulin Abs 4 IU/mL (< OR = 1)
== END 2022-10-19 08:03 | disposition home or self-care (01) ==
LOC: HO.LAB 08:02
PROVIDERS: PCP Family Medicine; Visit Provider Allergy & Immunology
DX: T78.49XA Other allergy, initial encounter (principal); T78.00XA Anaphylactic reaction due to unspecified food, initial encounter
CPT/HCPCS: 36415; 82785; 84443; 86003; 86343; 86376; 86800

== ENCOUNTER → 2022-11-02 13:54 | Outpatient (BNVA) | payer OTHER, SELFPAY | PROVIDERS: PCP Family Medicine; Visit Provider Student in an Organized Health Care Education/Training Program ==

== ENCOUNTER 2022-11-03 07:48 | Outpatient (REF) | payer OTHER, SELFPAY ==
--- NOTE | ~2022-11-03 | XR_ITS ---
EXAMINATION: XR BILATERAL HAND SERIES XR BILATERAL FOOT SERIES CLINICAL INFORMATION: Rheumatoid arthritis. COMPARISON: None. TECHNIQUE: 4 views of each hand and 3 views of each foot. FINDINGS: Right hand: The bones, joints, and soft tissues appear normal with normal alignment. No joint space narrowing or marginal erosions. No soft tissue calcifications. Left hand: The bones, joints, and soft tissues appear normal with normal alignment. No joint space narrowing or marginal erosions. No soft tissue calcifications. Right foot: The bones, joints, and soft tissues appear normal with normal alignment. No marginal erosions or joint space narrowing. No soft tissue calcifications. Left foot: The bones, joints, and soft tissues appear normal with normal alignment. No marginal erosions or joint space narrowing. No soft tissue calcifications. XR/XR foot LT min 3V IMPRESSION: No radiographic evidence for inflammatory arthropathy. Right Hand: Normal. Left Hand: Normal. Right Foot: Normal. Left foot: Normal.
--- NOTE | ~2022-11-03 | XR_ITS ---
EXAMINATION: XR BILATERAL HAND SERIES XR BILATERAL FOOT SERIES CLINICAL INFORMATION: Rheumatoid arthritis. COMPARISON: None. TECHNIQUE: 4 views of each hand and 3 views of each foot. FINDINGS: Right hand: The bones, joints, and soft tissues appear normal with normal alignment. No joint space narrowing or marginal erosions. No soft tissue calcifications. Left hand: The bones, joints, and soft tissues appear normal with normal alignment. No joint space narrowing or marginal erosions. No soft tissue calcifications. Right foot: The bones, joints, and soft tissues appear normal with normal alignment. No marginal erosions or joint space narrowing. No soft tissue calcifications. Left foot: The bones, joints, and soft tissues appear normal with normal alignment. No marginal erosions or joint space narrowing. No soft tissue calcifications. XR/XR hand wrist LT IMPRESSION: No radiographic evidence for inflammatory arthropathy. Right Hand: Normal. Left Hand: Normal. Right Foot: Normal. Left foot: Normal.
--- NOTE | ~2022-11-03 | XR_ITS ---
EXAMINATION: XR BILATERAL HAND SERIES XR BILATERAL FOOT SERIES CLINICAL INFORMATION: Rheumatoid arthritis. COMPARISON: None. TECHNIQUE: 4 views of each hand and 3 views of each foot. FINDINGS: Right hand: The bones, joints, and soft tissues appear normal with normal alignment. No joint space narrowing or marginal erosions. No soft tissue calcifications. Left hand: The bones, joints, and soft tissues appear normal with normal alignment. No joint space narrowing or marginal erosions. No soft tissue calcifications. Right foot: The bones, joints, and soft tissues appear normal with normal alignment. No marginal erosions or joint space narrowing. No soft tissue calcifications. Left foot: The bones, joints, and soft tissues appear normal with normal alignment. No marginal erosions or joint space narrowing. No soft tissue calcifications. XR/XR hand wrist RT IMPRESSION: No radiographic evidence for inflammatory arthropathy. Right Hand: Normal. Left Hand: Normal. Right Foot: Normal. Left foot: Normal.
--- NOTE | ~2022-11-03 | XR_ITS ---
EXAMINATION: XR BILATERAL HAND SERIES XR BILATERAL FOOT SERIES CLINICAL INFORMATION: Rheumatoid arthritis. COMPARISON: None. TECHNIQUE: 4 views of each hand and 3 views of each foot. FINDINGS: Right hand: The bones, joints, and soft tissues appear normal with normal alignment. No joint space narrowing or marginal erosions. No soft tissue calcifications. Left hand: The bones, joints, and soft tissues appear normal with normal alignment. No joint space narrowing or marginal erosions. No soft tissue calcifications. Right foot: The bones, joints, and soft tissues appear normal with normal alignment. No marginal erosions or joint space narrowing. No soft tissue calcifications. Left foot: The bones, joints, and soft tissues appear normal with normal alignment. No marginal erosions or joint space narrowing. No soft tissue calcifications. XR/XR foot RT min 3V IMPRESSION: No radiographic evidence for inflammatory arthropathy. Right Hand: Normal. Left Hand: Normal. Right Foot: Normal. Left foot: Normal.
[2022-11-03 08:15] LABS: MANUAL DIFF FLAG NO
[2022-11-03 08:30] LABS: Basophils Percent Auto 0.6 % (0-2); Eosinophils Absolute Auto 0.4 X10*3/uL (0.0-0.4); Hematocrit 42.7 % (37.0-47.0); Hemoglobin 14.1 g/dl (12.0-16.0); Imm Gran Abs Auto 0.02 X10*3/uL (0.00-0.03); Imm Gran Pct Auto 0.3 % (0.0-0.4); Lymphocytes Absolute Auto 1.9 X10*3/uL (1.2-4.9); Lymphocytes Percent Auto 26.2 % (20-40); Mean Corpuscular Hemoglobin 29.5 pg (27.0-33.0); Mean Corpuscular Volume 89.3 fL (80.0-98.0); Mean Platelet Volume 10.5 fL (9.4-12.3); Monocytes Absolute Auto 0.3 X10*3/uL (0.1-1.2); Monocytes Percent Auto 4.5 % (2-11); Neutrophils Absolute Auto 4.4 x10*3/uL (2.0-8.3); Neutrophils Percent Auto 62.4 % (45-73); Platelet Count 257 X10*3/uL (160-400); Red Blood Count 4.78 X10*6/uL (4.20-5.50); Red Cell Distribution Width 12.5 % (11.0-16.0); White Blood Count 7.1 X10*3/uL (4.8-10.8)
[2022-11-03 09:03] LABS: Alanine Aminotransferase 17 U/L (0-31); Albumin Level 4.1 g/dL (3.5-5.0); Alkaline Phosphatase 105 U/L (39-117); Anion Gap 11 (12-20); Aspartate Amino Transferase 17 U/L (5-31); Bilirubin Total 0.3 mg/dL (0.0-1.0); Blood Urea Nitrogen 18 mg/dL (9-16); C Reactive Protein 0.16 mg/dL (< or = 0.50); Carbon Dioxide 24 mmol/L (22-29); Chloride 107 mmol/L (96-108); Estimated Glomerular Filt Rate > 60; Glucose Random 116 mg/dL (60-115); Potassium 4.3 mmol/L (3.3-5.1); Rheumatoid Factor < 13.0 IU/mL (<15.0); Sodium 138 mmol/L (135-145); Total Protein 7.1 g/dL (6.5-8.0)
[2022-11-03 09:19] LABS: HBS Num1 1.32 mIU/mL (0-7.99); HBc Num1 0.11 S/CO (0.00-0.79); HBsAGNum1 0.27 S/CO (0.00-0.99); Hepatitis B Core Antibody Nonreactive (Nonreactive); Hepatitis B Surface Antigen Negative (Negative); ~HepC Num1 0.13 S/CO (0.00-0.79); ~Hepatitis A Antibody IgM Nonreactive (Nonreactive); ~Hepatitis B Surface Antibody NONREACTIVE (Nonreactive); ~Hepatitis C Antibody Nonreactive (Nonreactive)
[2022-11-03 09:21] LABS: Erythrocyte Sedimentation Rate 13 MM/HR (0-20)
[2022-11-03 10:05] LABS: Appearance Urine Clear; Color Urine Yellow; Glucose Urine UA Negative (Negative); Leukocyte Esterase Urine Small (1+) (Negative); Nitrite Urine Negative (Negative); Specific Gravity - Urine 1.025 (1.005-1.025); UMIC TRIGGER UA YES; Urine Blood Trace (Negative); Urine Ketones Negative (Negative); Urine Protein Negative (Neg-Trace)
[2022-11-03 10:19] LABS: Bacteria Urine None Seen (None Seen); Hyaline Casts Urine 0-2 /LPF (0-2)
[2022-11-03 16:24] LABS: Creatinine Urine 36.99 mg/dL; Total Protein Urine Random < 7 mg/dL (<12)
[2022-11-05 23:39] LABS: TS Negative Control Passed; TS Panel A 0; TS Panel B 2; TS Positive Control Passed; TSpotTB Negative (Negative)
[2022-11-06 13:13] LABS: Cyclic Citrullinated Peptide <16 UNITS
[2022-11-07 07:43] LABS: Complement C3 152 mg/dL (83-193)
[2022-11-07 15:03] LABS: IgA 282 mg/dL (47-310); IgG 1103 mg/dL (600-1640); IgM 353 mg/dL (50-300)
[2022-11-07 15:07] LABS: Anti DNA DS Antibody 2 IU/mL; Antibody to SS-A Antigen <1.0 NEG AI (<1.0 NEG); Antibody to SS-B Antigen <1.0 NEG AI (<1.0 NEG); SM/Ribonucleoprotein Ab <1.0 NEG AI (<1.0 NEG); Smith Protein <1.0 NEG AI (<1.0 NEG)
[2022-11-07 22:42] LABS: Prot Elec - Albumin 4.4 g/dL (3.8-4.8); Prot Elec - Alpha1 0.3 g/dL (0.2-0.3); Prot Elec - Alpha2 0.6 g/dL (0.5-0.9); Prot Elec - Beta 1 0.6 g/dL (0.4-0.6); Prot Elec - Beta 2 0.5 g/dL (0.2-0.5); Prot Elec - Gamma 1.1 g/dL (0.8-1.7); Prot Elec - Total Protein 7.5 g/dL (6.1-8.1)
[2022-11-10 15:37] LABS: Anti Nuclear Antibody Screen NEGATIVE (NEGATIVE)
== END 2022-11-03 07:49 | disposition home or self-care (01) ==
LOC: HO.XRAY 07:48
PROVIDERS: PCP Family Medicine; Visit Provider Student in an Organized Health Care Education/Training Program
DX: Z11.59 Encounter for screening for other viral diseases (principal); Z11.7 Encounter for testing for latent tuberculosis infection; M32.9 Systemic lupus erythematosus, unspecified; M06.9 Rheumatoid arthritis, unspecified; Z72.89 Other problems related to lifestyle
CPT/HCPCS: 36415; 73110; 73130; 73630; 80053; 81001; 82784; 84156; 84165; 85025; 85652; 86038; 86140; 86160; 86200; 86225; 86235; 86334; 86431; 86481; 86704; 86706; 86709; 86803; 87340

== ENCOUNTER 2022-12-07 06:59 | Day surgery (SDC) | payer OTHER, SELFPAY ==
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
[2022-12-07 07:11] VITALS: BMI 32.9
[2022-12-07 07:20] VITALS: BP 106/52; PULSE 77; RESP 15; TEMP 36.2; O2SAT 97
[2022-12-07 07:20] LABS: UPreg QC Valid YES; Urine Pregnancy NEGATIVE (NEGATIVE)
[2022-12-07] MEDS: Lactated Ringers 1,000 ML 100 ML IVCONT (07:32)
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
--- NOTE | 2022-12-07 08:20 | P.HPSUR_ITS ---
Pre-Procedural Eval Section A Date of Service: 12/07/22 Section B Chief Complaint: Early satiety Details of Present Illness: gastroparesis and esophagitis Relevant Family History (Specify if Yes): No Relevant Social History: None Present Medications: see Short Stay Collaborative assessment Medical History: Significant History (ADHD Anxiety Degenerated intervertebral disc Depression Fibromyalgia Gastroparesis Homozygous MTHFR mutation C677T Migraine without aura POTS (postural orthostatic tachycardia syndrome) Psoriatic arthritis PTSD (post-traumatic stress disorder) Sleep behavior disorder, REM Vasovagal syncope Vitamin D) History of Previous Operations: Relevant previous surgery/procedure and date(s) (History of esophagogastroduodenoscopy (EGD) History of hysteroscopy History of tonsillectomy and adenoidectomy History of wisdom tooth extraction Hx of colonoscopy) Allergies: Allergies Allergy/AdvReac Type Severity Reaction Status Date / Time banana Allergy Severe Unresponsiv Verified 12/07/22 07:07 e chocolate flavor Allergy Severe hives with Verified 12/07/22 07:07 airway swelling codeine [CODEINE] Allergy Intermediate anxiety Verified 12/07/22 07:07 gluten Allergy Intermediate abdominal Verified 12/07/22 07:07 pain and bloating latex Allergy Intermediate Swelling Verified 12/07/22 07:07 avocado Allergy Unknown Unknown Verified 12/07/22 07:07 kiwi Allergy Unknown Unknown Verified 12/07/22 07:07 Peppers, Green Allergy Swelling Verified 12/07/22 07:07 [Green Peppers] Review of Systems Sugical H&P ROS: Negative: Constitution, Cardiovascular, Respiratory, Neurolo gical, Psychiatric, Hem-Onc, Allergic/Immunologic, Gastrointestinal, Genitourinary, Musculoskeletal, Integumentary, Endocrine and Eyes/Ears/Nose/Throat Exam Surgical H&P Exam: Normal: HEENT, Normal: Heart, Normal: Lungs, Normal: Extremities, Normal: Abdomen, Normal: Skin and Normal: Neurological Plan Diagnosis/Plan: Unchanged I have reviewed the history and physical and performed a pertinent physical examination on my patient. No changes have occurred unless specified. Time Spent With Patient Time: Total time managing care of this patient today ____ minutes.
--- NOTE | 2022-12-07 08:23 | W.PM.OPN ---
Operative Note Operative Note Date of Service: 12/07/22 Narrative: Procedure Description: EGD Indication: satiety and hx of esophagitis, globus sensation Anesthesia: MAC FLEXIBLE TRANSORAL UPPER GASTROINTESTINAL ENDOSCOPY UPPER ENDOSCOPY Consent: Indications for the procedure and potential complications of bleeding, perforation, reaction to medications and missed diagnosis were discussed with the patient and informed consent was obtained. Instrument: Olympus GIF H 190 J mid size upper endoscope Monitoring: Vital signs and clinical assessment, continuous EKG monitoring, Pulse oximetry, Carbon Dioxide monitoring and blood pressure monitoring were done throughout the procedure. Procedure: The patient was placed in the left lateral decubitis position and pre-procedure medications were administered and a bite block was placed. The endoscope was inserted into the mouth and advanced under direct vision to the third part of duodenum. A careful inspection was made as the upper endoscope was withdrawn including a retroflexed examination of the proximal stomach; Findings and interventions are described below. Findings: Larynx:normal Esophagus: GE junction at 34 cm, diaphragm hiatus at 36 cm, consistent with 2 cm sliding hiatal hernia. Few small islands of salmon pink tissue, bx taken to r/o barretts esophagus. Dilation doen of LES to 19 mm and UES to 19 mm, no heme noted. Stomach: Normal mucosa, paucity of gastric movement. Grade 2 flap valve on retroflexed examination of the cardia. Pylorus was dilated with balloon to 19 mm, no heme seen. Duodenum: Normal bulb and descending duodenum, Intervention: Biopsies as noted above Impression/Findings: gastroparesis possible barretts hiatal hernia PLAN: cont with PPI as doing for the moment, maybe cut down in 3-6 months if Barretts pos then repeat EGD in 2-3 yrs GERd precautions
[2022-12-07 08:59] VITALS: BP 93/44; PULSE 75; RESP 16; TEMP 36.6; O2SAT 96
[2022-12-07 09:14] VITALS: BP 100/54; PULSE 69; RESP 18; TEMP 36.7; O2SAT 98
--- NOTE | 2022-12-07 09:19 | HO.POSTANES ---
Post Anesthesia Evaluation Post Anesthesia Evaluation Date of Service: 12/07/22 Vital Signs: Vital Signs Temp Pulse Resp BP Pulse Ox O2 Del Method 12/07/22 09:14 98.1 F 69 18 100/54 L 98 Room Air 12/07/22 08:59 97.8 F 75 16 93/44 L 96 Room Air 12/07/22 07:20 97.1 F 77 15 106/52 L 97 Room Air Anesthesia: Monitored Mental Status: Awake Pain Control: Satisfactory Nausea/Vomiting: None Hydration: Adequate Anesthesia-Related Issues: No Anes. Related Issues
== END 2022-12-07 09:51 | disposition home or self-care (01) ==
PROVIDERS: Nurse Practitioner; PCP Family Medicine; Visit Provider Internal Medicine Gastroenterology
PROC: 0DJ08ZZ Inspection of Upper Intestinal Tract, Via Natural or Artificial Opening Endoscopic (ICD-10-PCS; CPT 43235; principal; 2022-12-07 08:20)
DX: R68.81 Early satiety (principal); K31.84 Gastroparesis; K20.80 Other esophagitis without bleeding; R09.89 Other specified symptoms and signs involving the circulatory and respiratory systems; K44.9 Diaphragmatic hernia without obstruction or gangrene; E55.9 Vitamin D deficiency, unspecified; E72.12 Methylenetetrahydrofolate reductase deficiency; M79.7 Fibromyalgia; L40.50 Arthropathic psoriasis, unspecified; F32.A Depression, unspecified; F41.1 Generalized anxiety disorder; G43.909 Migraine, unspecified, not intractable, without status migrainosus; G90.A Postural orthostatic tachycardia syndrome [POTS]; Z79.899 Other long term (current) drug therapy; Z88.8 Allergy status to other drugs, medicaments and biological substances; Z91.040 Latex allergy status
CPT/HCPCS: 43249; 43245; 43239; 81025; 88305; C1726

== ENCOUNTER → 2022-12-18 11:29 | Outpatient (BNVA) | payer OTHER, SELFPAY | PROVIDERS: PCP Family Medicine; Visit Provider Internal Medicine Gastroenterology ==

== ENCOUNTER 2023-02-02 13:47 | Outpatient (AMB) | payer OTHER, SELFPAY ==
[2023-02-02 13:49] VITALS: BP 122/64; PULSE 84; TEMP 36.2; O2SAT 96; BMI 32.9
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
== END 2023-02-02 14:17 | disposition home or self-care (01) ==
PROVIDERS: PCP Family Medicine; Visit Provider Student in an Organized Health Care Education/Training Program
DX: M79.641 Pain in right hand (principal); M79.642 Pain in left hand
CPT/HCPCS: 99213

== ENCOUNTER → 2023-02-02 13:47 | Outpatient (BNVA) | payer OTHER, SELFPAY | PROVIDERS: Visit Provider Student in an Organized Health Care Education/Training Program ==

== ENCOUNTER 2023-03-02 07:54 | Outpatient (AMB) | payer OTHER, SELFPAY ==
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
[2023-03-02 08:07] VITALS: BP 98/74; PULSE 87; O2SAT 97; BMI 33.0
== END 2023-03-02 08:47 | disposition home or self-care (01) ==
PROVIDERS: Visit Provider Nurse Practitioner Family
DX: G43.009 Migraine without aura, not intractable, without status migrainosus (principal); G47.39 Other sleep apnea
CPT/HCPCS: 99214

== ENCOUNTER → 2023-03-02 07:54 | Outpatient (BNVA) | payer OTHER, SELFPAY | PROVIDERS: Visit Provider Nurse Practitioner Family ==

== ENCOUNTER 2023-03-19 14:40 | Outpatient (AMB) | payer OTHER, SELFPAY ==
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
[2023-03-19 14:57] VITALS: BP 118/64; PULSE 71; BMI 32.5
== END 2023-03-19 15:46 | disposition home or self-care (01) ==
PROVIDERS: PCP Family Medicine; Visit Provider Internal Medicine Gastroenterology
DX: K31.84 Gastroparesis (principal)
CPT/HCPCS: 99213

== ENCOUNTER → 2023-03-19 14:40 | Outpatient (BNVA) | payer OTHER, SELFPAY | PROVIDERS: PCP Family Medicine; Visit Provider Internal Medicine Gastroenterology ==

== ENCOUNTER 2023-04-11 07:25 | Outpatient (REF) | payer OTHER, SELFPAY ==
[2023-04-11 07:36] LABS: MANUAL DIFF FLAG NO
[2023-04-11 08:08] LABS: Basophils Percent Auto 0.5 % (0-2); Eosinophils Absolute Auto 0.4 X10*3/uL (0.0-0.4); Eosinophils Percent Auto 4.7 % (0-4); Hematocrit 42.5 % (37.0-47.0); Hemoglobin 14.1 g/dl (12.0-16.0); Imm Gran Abs Auto 0.08 X10*3/uL (0.00-0.03); Lymphocytes Absolute Auto 1.9 X10*3/uL (1.2-4.9); Lymphocytes Percent Auto 23.1 % (20-40); Mean Corpuscular HGB Conc 33.2 g/dl (31.0-35.0); Mean Corpuscular Hemoglobin 29.4 pg (27.0-33.0); Mean Corpuscular Volume 88.5 fL (80.0-98.0); Mean Platelet Volume 10.4 fL (9.4-12.3); Monocytes Absolute Auto 0.5 X10*3/uL (0.1-1.2); Monocytes Percent Auto 6.6 % (2-11); Neutrophils Absolute Auto 5.2 x10*3/uL (2.0-8.3); Neutrophils Percent Auto 64.1 % (45-73); Platelet Count 233 X10*3/uL (160-400); Red Cell Distribution Width 12.5 % (11.0-16.0); White Blood Count 8.1 X10*3/uL (4.8-10.8)
[2023-04-11 08:35] LABS: Creatinine Urine 174.51 mg/dL
[2023-04-11 08:48] LABS: Alanine Aminotransferase 26 U/L (0-31); Albumin Level 4.3 g/dL (3.5-5.0); Alkaline Phosphatase 89 U/L (39-117); Anion Gap 12 (12-20); Aspartate Amino Transferase 20 U/L (5-31); Bilirubin Total 0.4 mg/dL (0.0-1.0); Blood Urea Nitrogen 12 mg/dL (9-16); Calcium 9.2 mg/dL (8.4-10.2); Carbon Dioxide 24 mmol/L (22-29); Chloride 107 mmol/L (96-108); Cholesterol 214 mg/dL (<200); Estimated Glomerular Filt Rate > 60; Glucose Fasting 99 mg/dL (60-99); HDL Cholesterol 37 mg/dL (>40); LDL Cholesterol Calculated 133 mg/dL (<100); Potassium 3.9 mmol/L (3.3-5.1); Sodium 139 mmol/L (135-145); Total Protein 7.5 g/dL (6.5-8.0); Triglycerides 222 mg/dL (<150)
[2023-04-11 09:04] LABS: TSH reflex Free T4 1.06 uIU/mL (0.32-4.0)
== END 2023-04-11 07:26 | disposition home or self-care (01) ==
LOC: HO.LAB 07:25
PROVIDERS: PCP Nurse Practitioner Family; Visit Provider Family Medicine
DX: Z00.00 Encounter for general adult medical examination without abnormal findings (principal); I10 Essential (primary) hypertension
CPT/HCPCS: 36415; 80053; 80061; 82043; 82570; 84443; 85025

== ENCOUNTER 2023-04-12 13:04 | Outpatient (AMB) | payer OTHER, SELFPAY ==
[2023-04-12 13:08] VITALS: BP 102/64; PULSE 88; RESP 12; TEMP 36.6; O2SAT 99; BMI 32.9
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
== END 2023-04-12 13:50 | disposition home or self-care (01) ==
PROVIDERS: PCP Nurse Practitioner Family; Visit Provider Nurse Practitioner Family
DX: Z00.00 Encounter for general adult medical examination without abnormal findings (principal); F41.1 Generalized anxiety disorder; F33.9 Major depressive disorder, recurrent, unspecified; F43.10 Post-traumatic stress disorder, unspecified; I49.8 Other specified cardiac arrhythmias; K31.84 Gastroparesis; E78.2 Mixed hyperlipidemia; M79.7 Fibromyalgia; G43.009 Migraine without aura, not intractable, without status migrainosus; Z91.018 Allergy to other foods
CPT/HCPCS: 99395

== ENCOUNTER 2023-04-25 09:11 | Outpatient (AMB) | payer OTHER, SELFPAY ==
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
[2023-04-25 09:17] VITALS: BP 94/52; PULSE 68; RESP 13; TEMP 36.8; O2SAT 99; BMI 32.9
== END 2023-04-25 09:45 | disposition home or self-care (01) ==
PROVIDERS: PCP Nurse Practitioner Family; Visit Provider Nurse Practitioner Family
DX: R07.1 Chest pain on breathing (principal)
CPT/HCPCS: 99213

== ENCOUNTER 2023-05-08 06:25 | Day surgery (SDC) | payer OTHER, SELFPAY ==
[2023-05-04 10:23] VITALS: BMI 32.3
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
--- NOTE | 2023-05-08 06:26 | MHC.SHP ---
Pre-Procedural Eval Section A Date of Service: 05/08/23 Section B Chief Complaint: Gastroparesis Relevant Family History (Specify if Yes): No Relevant Social History: None Present Medications: see Short Stay Collaborative assessment Medical History: Significant History (Depression ADHD POTS (postural orthostatic tachycardia syndrome) Gastroparesis Migraine without aura Sleep behavior disorder, REM Psoriatic arthritis Homozygous MTHFR mutation C677T Degenerated intervertebral disc Fibromyalgia Vitamin D deficiency Vasovagal syncope Anxiety PTSD (post-traumatic stres) History of Previous Operations: Relevant previous surgery/procedure and date(s) (Hx of colonoscopy History of esophagogastroduodenoscopy (EGD) History of hysteroscopy History of tonsillectomy and adenoidectomy History of wisdom tooth extraction) Allergies: Allergies Allergy/AdvReac Type Severity Reaction Status Date / Time banana Allergy Severe Unresponsiv Verified 04/25/23 09:37 e chocolate flavor Allergy Severe hives with Verified 04/25/23 09:37 airway swelling codeine [CODEINE] Allergy Intermediate anxiety Verified 04/25/23 09:37 latex Allergy Intermediate Swelling Verified 04/25/23 09:37 pineapple Allergy Mild Unknown Verified 04/25/23 09:37 avocado Allergy Unknown Unknown Verified 04/25/23 09:37 kiwi Allergy Unknown Unknown Verified 04/25/23 09:37 Peppers, Green Allergy Swelling Verified 04/25/23 09:37 [Green Peppers] Review of Systems Sugical H&P ROS: Negative: Constitution, Cardiovascular, Respiratory, Neurological, Psychiatric, Hem-Onc, Allergic/Immunologic, Gastrointestinal, Genitourinary, Musculoskeletal, Integumentary, Endocrine and Eyes/Ears/Nose/Throat Exam Surgical H&P Exam: Normal: HEENT, Normal: Heart, Normal: Lungs, Normal: Extremities, Normal: Abdomen, Normal: Skin and Normal: Neurological Plan Diagnosis/Plan: Unchanged I have reviewed the history and physical and performed a pertinent physical examination on my patient. No changes have occurred unless specified. Time Spent With Patient Time: Total time managing care of this patient today ____ minutes.
[2023-05-08 07:10] VITALS: BMI 32.8
[2023-05-08 07:12] VITALS: BP 112/71; PULSE 64; RESP 16; TEMP 36.4; O2SAT 100
[2023-05-08 07:14] VITALS: BMI 32.8
[2023-05-08 07:15] LABS: UPreg QC Valid YES
[2023-05-08 07:16] LABS: Urine Pregnancy NEGATIVE (NEGATIVE)
[2023-05-08] MEDS: Lactated Ringers 1,000 ML 100 ML IVCONT (07:24)
--- NOTE | 2023-05-08 08:01 | W.PM.OPN ---
Operative Note Operative Note Date of Service: 05/08/23 Narrative: Procedure Description: EGD Indication: gastroparesis, nausea Anesthesia: MAC FLEXIBLE TRANSORAL UPPER GASTROINTESTINAL ENDOSCOPY UPPER ENDOSCOPY Consent: Indications for the procedure and potential complications of bleeding, perforation, reaction to medications and missed diagnosis were discussed with the patient and informed consent was obtained. Instrument: Olympus GIF H 190 J mid size upper endoscope Monitoring: Vital signs and clinical assessment, continuous EKG monitoring, Pulse oximetry, Carbon Dioxide monitoring and blood pressure monitoring were done throughout the procedure. Procedure: The patient was placed in the left lateral decubitis position and pre-procedure medications were administered and a bite block was placed. The endoscope was inserted into the mouth and advanced under direct vision to the third part of duodenum. A careful inspection was made as the upper endoscope was withdrawn including a retroflexed examination of the proximal stomach; Findings and interventions are described below. Findings: Larynx:normal Esophagus: GE junction at 32 cm, diaphragm hiatus at 36 cm, consistent with 4 cm sliding hiatal hernia with non obstructive schatzki ring noted Stomach: Patchy erythema noted, with some reasonable peristalsis noted, bx taken. Grade 2 flap valve on retroflexed examination of the cardia. Pylorus was dilated with wire guided balloon to 20 mm, no heme seen. botox injected 100 units in divided doses around the pylorus Duodenum: Normal bulb and descending duodenum, Intervention: Biopsies as noted above, wire guided balloon dilation, botox injection Impression/Findings: hiatal hernia schatzki ring PLAN: cont with PPI as doing for the moment, if ongoing sx then refer for pyloroplasty vs trial of motegrity, domepridone GERd precautions
[2023-05-08 08:10] VITALS: BP 100/52; PULSE 74; RESP 16; TEMP 36.6; O2SAT 95
[2023-05-08 08:24] VITALS: BP 106/54; PULSE 70; RESP 16; O2SAT 96
[2023-05-08] MEDS: ondansetron HCL 4 MG/2 ML VIAL IVPUSH (08:38)
[2023-05-08 08:40] VITALS: BP 110/68; PULSE 62; RESP 16; TEMP 37; O2SAT 100
== END 2023-05-08 09:20 | disposition home or self-care (01) ==
PROVIDERS: Nurse Practitioner; PCP Nurse Practitioner Family; Visit Provider Internal Medicine Gastroenterology
PROC: (CPT 43245; principal; 2023-05-08 07:30)
DX: K22.2 Esophageal obstruction (principal); K44.9 Diaphragmatic hernia without obstruction or gangrene; K29.70 Gastritis, unspecified, without bleeding; K31.84 Gastroparesis; F90.9 Attention-deficit hyperactivity disorder, unspecified type; G90.A Postural orthostatic tachycardia syndrome [POTS]; M79.7 Fibromyalgia; F41.9 Anxiety disorder, unspecified; E78.5 Hyperlipidemia, unspecified; R06.02 Shortness of breath; G47.39 Other sleep apnea; R10.9 Unspecified abdominal pain; Z15.89 Genetic susceptibility to other disease; Z79.899 Other long term (current) drug therapy
CPT/HCPCS: 43245; 43239; 43236; 81025; 88305; 88342; C1726; J0585; J2405; J2704

== ENCOUNTER → 2023-05-08 06:25 | Outpatient (BNV) | payer OTHER, SELFPAY | PROVIDERS: PCP Nurse Practitioner Family; Visit Provider Internal Medicine Gastroenterology | DX: K31.84 Gastroparesis (principal); K22.2 Esophageal obstruction | CPT/HCPCS: 43249 ==

== ENCOUNTER 2023-05-18 08:22 | Outpatient (AMB) | payer OTHER, SELFPAY ==
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
[2023-05-18 08:28] VITALS: BP 112/66; PULSE 77; BMI 31.3
== END 2023-05-18 09:00 | disposition home or self-care (01) ==
PROVIDERS: PCP Family Medicine; Visit Provider Internal Medicine Gastroenterology
DX: K31.84 Gastroparesis (principal)
CPT/HCPCS: 99213

== ENCOUNTER → 2023-05-18 08:22 | Outpatient (BNVA) | payer OTHER, SELFPAY | PROVIDERS: PCP Family Medicine; Visit Provider Internal Medicine Gastroenterology ==

== ENCOUNTER → 2023-05-22 08:18 | Outpatient (REF) | payer OTHER, SELFPAY ==
--- NOTE | ~2023-05-22 | NM_ITS ---
EXAMINATION: RADIONUCLIDE SOLID FOOD GASTRIC EMPTYING 4-HOUR STUDY CLINICAL INFORMATION: Early satiety. COMPARISON: No previous gastric emptying study is available for comparison. TECHNIQUE: A standard meal consisting of 4 oz of Egg Beaters brand equivalent tagged with 815 microcuries Tc-99m Sulfur Colloid, 8 oz water and 2 slices of toast with jelly was administered orally to the patient. Images were obtained using a dual head gamma camera in the anterior and posterior projections over of the stomach immediately post ingestion and at hourly intervals up to 4 hours post ingestion. The anterior and posterior counts at each time interval were averaged using the geometric mean and expressed as percentage of the immediate post ingestion counts. FINDINGS: There is good visualization of activity in the stomach immediately post ingestion. As the study progresses, there is fair clearance of activity from the stomach and visualization of progressively increasing small bowel activity. At the end of the study there is mild abnormal retention of activity in the stomach at 4 hours. Retention in the stomach at each time interval was: 1 hour 88% (normal 37%-90%) 2 hours 57% (normal 30%-60%) 3 hours 19% 4 hours 14% (normal 0%-10%) NM/NM gastric emptying study IMPRESSION: Abnormal study. There is mild abnormal retention of solid food in the stomach at 4 hours. Gastric emptying study grading per JNMT Consensus Recommendations in 2008: https://tech.snmjournals.org/content/36/1/44 Grade 1 (mild retention): 11-20% at 4 hours Grade 2 (moderate retention): 21-35% at 4 hours Grade 3 (severe retention): 36-50% at 4 hours Grade 4 (very severe retention): >50% retention at 4 hours
== END ==
LOC: HO.NUCMED 08:18
PROVIDERS: PCP Family Medicine; Visit Provider Internal Medicine Gastroenterology
DX: R68.81 Early satiety (principal)
CPT/HCPCS: 78264; A9541

== ENCOUNTER 2023-06-19 07:54 | Outpatient (AMB) | payer OTHER, SELFPAY ==
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
[2023-06-19 07:58] VITALS: BP 94/60; BMI 32.5
== END 2023-06-19 08:25 | disposition home or self-care (01) ==
PROVIDERS: Visit Provider Advanced Practice Midwife
DX: Z01.419 Encounter for gynecological examination (general) (routine) without abnormal findings (principal)
CPT/HCPCS: 99395

== ENCOUNTER → 2023-06-19 07:54 | Outpatient (BNVA) | payer OTHER, SELFPAY | PROVIDERS: Visit Provider Advanced Practice Midwife ==

== ENCOUNTER 2023-06-19 10:52 | Outpatient (AMB) | payer OTHER, SELFPAY ==
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
[2023-06-19 11:05] VITALS: BP 131/73; PULSE 76; BMI 32.4
== END 2023-06-19 11:20 | disposition home or self-care (01) ==
PROVIDERS: PCP Family Medicine; Referring Provider Internal Medicine Gastroenterology; Visit Provider Surgery
DX: K31.84 Gastroparesis (principal)
CPT/HCPCS: 99204

== ENCOUNTER 2023-06-29 13:23 | Outpatient (REF) | payer OTHER, SELFPAY ==
--- NOTE | ~2023-06-29 | CT_ITS ---
EXAMINATION: CT ENTEROGRAPHY ABDOMEN AND PELVIS WITH CONTRAST CLINICAL INFORMATION: Periumbilical pain COMPARISON: Ultrasound dated 05/05/2022 TECHNIQUE: Study performed with oral VoLumen (1350 mL) and 480 mL of water to distend the abdomen. The patient was injected with 85 mL Omnipaque 350 intravenous contrast which was administered without adverse effect. Coronal and sagittal reformatted images were obtained at the technologist's workstation. This CT examination was performed using dose optimization techniques as appropriate, variously including the following: *Automated exposure control *Adjustment of mA and/or kV according to patient size (this includes techniques or standardized protocols for targeted exams where dose is matched to indication/reason for exam; i.e. extremities or head) *Use of iterative reconstruction technique DLP: 451 mGy-cm FINDINGS: GASTROINTESTINAL FINDINGS: Stomach: Well-distended and normal in appearance. Small hiatal hernia. Small intestine: Satisfactorily distended and normal in appearance. Large intestine: Well-distended and normal in appearance. No perirectal changes demonstrated. The appendix is normal. Additional findings: No abnormal enhancement of the vasa recta or significant mesenteric or retroperitoneal lymphadenopathy is seen. No abdominal abscess or fistulous tract demonstrated. ABDOMINAL AND PELVIC CT FINDINGS: Liver, gallbladder, biliary tract: Unremarkable Pancreas: Unremarkable Spleen: Unremarkable Adrenal glands and kidneys: Partial malrotation of the right kidney. Left kidney is unremarkable. No hydronephrosis or nephrolithiasis. Ureters and bladder: Unremarkable Lymphovascular structures: Unremarkable Bones: Unremarkable Lung bases: Clear CT/CT enterography IMPRESSION: * No CT findings of acute intra-abdominal abnormality. Small hiatal hernia. * Partial malrotation of the right kidney.
[2023-06-29] MEDS: Sorbitol/Mannit/Xanth Imaging 500 ML LIQUID 1500 ML PO (15:17)
[2023-06-29] MEDS: iohexoL 350 MG/ML 100 ML INFUS..BTL 85 ML IV (15:19)
== END 2023-06-29 13:24 | disposition home or self-care (01) ==
LOC: HO.CT 13:23
PROVIDERS: PCP Family Medicine; Visit Provider Internal Medicine Gastroenterology
DX: R10.33 Periumbilical pain (principal)
CPT/HCPCS: 74177; Q9967

== ENCOUNTER 2023-07-05 07:55 | Outpatient (AMB) | payer OTHER, SELFPAY ==
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
[2023-07-05 08:07] VITALS: BP 110/72; PULSE 76; O2SAT 100; BMI 33.0
== END 2023-07-05 08:42 | disposition home or self-care (01) ==
PROVIDERS: PCP Family Medicine; Visit Provider Nurse Practitioner Family
DX: G43.009 Migraine without aura, not intractable, without status migrainosus (principal); I49.8 Other specified cardiac arrhythmias
CPT/HCPCS: 99214

== ENCOUNTER → 2023-07-05 07:55 | Outpatient (BNVA) | payer OTHER, SELFPAY | PROVIDERS: PCP Family Medicine; Visit Provider Nurse Practitioner Family ==

== ENCOUNTER 2023-08-13 10:05 | Outpatient (AMB) | payer OTHER, SELFPAY ==
[2023-08-13 10:07] VITALS: BP 111/67; PULSE 71; BMI 31.5
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
== END 2023-08-13 10:44 | disposition home or self-care (01) ==
PROVIDERS: PCP Family Medicine; Visit Provider Internal Medicine Gastroenterology
DX: K31.84 Gastroparesis (principal)
CPT/HCPCS: 99213

== ENCOUNTER → 2023-08-13 10:05 | Outpatient (BNVA) | payer OTHER, SELFPAY | PROVIDERS: PCP Family Medicine; Visit Provider Internal Medicine Gastroenterology ==

== ENCOUNTER 2023-08-30 14:24 | Outpatient (REF) | payer OTHER, SELFPAY ==
[2023-08-30 14:25] VITALS: BP 127/66; PULSE 81; RESP 20; TEMP 37.2; O2SAT 99
[2023-08-30] MEDS: 0.9 % Sodium Chloride 1,000 ML 999 ML IV (14:42)
== END 2023-08-30 14:25 | disposition home or self-care (01) ==
LOC: HO.MDS 14:24
PROVIDERS: Visit Provider Internal Medicine Gastroenterology
DX: G90.1 Familial dysautonomia [Riley-Day] (principal); I95.9 Hypotension, unspecified
CPT/HCPCS: 96360

== ENCOUNTER 2023-09-03 14:49 | Outpatient (REF) | payer OTHER, SELFPAY ==
[2023-09-03 14:50] VITALS: BP 118/68; PULSE 75; RESP 18; TEMP 36.7; O2SAT 99; BMI 31.4
[2023-09-03] MEDS: 0.9 % Sodium Chloride 1,000 ML 999 ML IV (15:00)
== END 2023-09-03 14:50 | disposition home or self-care (01) ==
LOC: HO.MDS 14:49
PROVIDERS: Visit Provider Internal Medicine Gastroenterology
DX: G90.1 Familial dysautonomia [Riley-Day] (principal)
CPT/HCPCS: 96360

== ENCOUNTER 2023-09-06 14:47 | Outpatient (REF) | payer OTHER, SELFPAY ==
[2023-09-06 14:47] VITALS: BP 120/66; PULSE 76; RESP 20; TEMP 36.9; O2SAT 100
[2023-09-06] MEDS: 0.9 % Sodium Chloride 1,000 ML 999 ML IV (14:58)
== END 2023-09-06 14:48 | disposition home or self-care (01) ==
LOC: HO.MDS 14:47
PROVIDERS: Visit Provider Internal Medicine Gastroenterology
DX: G90.1 Familial dysautonomia [Riley-Day] (principal)
CPT/HCPCS: 96360

== ENCOUNTER 2023-09-10 11:53 | Outpatient (REF) | payer OTHER, SELFPAY ==
[2023-09-10 12:04] VITALS: BP 115/70; PULSE 74; RESP 16; TEMP 36.7; O2SAT 100
[2023-09-10] MEDS: 0.9 % Sodium Chloride 1,000 ML 999 ML IVCONT (12:08)
== END 2023-09-10 11:54 | disposition home or self-care (01) ==
LOC: HO.MDS 11:53
PROVIDERS: Visit Provider Internal Medicine Gastroenterology
DX: G90.1 Familial dysautonomia [Riley-Day] (principal)
CPT/HCPCS: 96360

== ENCOUNTER 2023-09-13 10:12 | Outpatient (AMB) | payer OTHER, SELFPAY ==
[2023-09-13 11:13] VITALS: BP 110/80; PULSE 80; TEMP 36.5; O2SAT 98; BMI 32.3
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
== END 2023-09-13 12:13 | disposition home or self-care (01) ==
PROVIDERS: PCP Family Medicine; Visit Provider Nurse Practitioner Family
DX: S16.1XXA Strain of muscle, fascia and tendon at neck level, initial encounter (principal); R11.0 Nausea
CPT/HCPCS: 99214

== ENCOUNTER 2023-09-13 13:48 | Outpatient (REF) | payer OTHER, SELFPAY ==
[2023-09-13 13:53] VITALS: BP 116/61; PULSE 67; RESP 17; TEMP 36.5
[2023-09-13] MEDS: 0.9 % Sodium Chloride 1,000 ML 999 ML IVCONT (14:04)
== END 2023-09-13 13:49 | disposition home or self-care (01) ==
LOC: HO.MDS 13:48
PROVIDERS: Visit Provider Internal Medicine Gastroenterology
DX: G90.1 Familial dysautonomia [Riley-Day] (principal)
CPT/HCPCS: 96360

== ENCOUNTER → 2023-09-28 16:57 | Outpatient (AMB) | payer OTHER, SELFPAY ==
[2023-09-28 17:00] VITALS: BP 108/70; PULSE 86; RESP 13; TEMP 36.8; O2SAT 99; BMI 32.2
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
== END ==
PROVIDERS: PCP Family Medicine; Visit Provider Nurse Practitioner Family
DX: M54.2 Cervicalgia (principal); G89.29 Other chronic pain
CPT/HCPCS: 99213

== ENCOUNTER 2023-10-08 13:57 | Outpatient (AMB) | payer OTHER, SELFPAY ==
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
[2023-10-08 14:03] VITALS: BP 114/70; PULSE 82; BMI 31.2
== END 2023-10-08 15:10 | disposition home or self-care (01) ==
LOC: HO.HGI 13:57
PROVIDERS: PCP Family Medicine; Visit Provider Internal Medicine Gastroenterology
DX: K31.84 Gastroparesis (principal)
CPT/HCPCS: 99213

== ENCOUNTER → 2023-10-08 13:57 | Outpatient (BNVA) | payer OTHER, SELFPAY | PROVIDERS: PCP Family Medicine; Visit Provider Internal Medicine Gastroenterology ==

== ENCOUNTER 2023-11-05 07:15 | Outpatient (REF) | payer OTHER, SELFPAY ==
[2023-11-05 07:31] LABS: MANUAL DIFF FLAG NO
[2023-11-05 07:44] LABS: Basophils Percent Auto 0.5 % (0-2); Eosinophils Absolute Auto 0.3 X10*3/uL (0.0-0.4); Eosinophils Percent Auto 4.2 % (0-4); Hematocrit 41.3 % (37.0-47.0); Hemoglobin 13.7 g/dl (12.0-16.0); Imm Gran Abs Auto 0.03 X10*3/uL (0.00-0.03); Imm Gran Pct Auto 0.4 % (0.0-0.4); Lymphocytes Absolute Auto 1.6 X10*3/uL (1.2-4.9); Lymphocytes Percent Auto 20.9 % (20-40); Mean Corpuscular HGB Conc 33.2 g/dl (31.0-35.0); Mean Corpuscular Hemoglobin 29.5 pg (27.0-33.0); Mean Corpuscular Volume 88.8 fL (80.0-98.0); Mean Platelet Volume 10.2 fL (9.4-12.3); Monocytes Absolute Auto 0.4 X10*3/uL (0.1-1.2); Monocytes Percent Auto 5.5 % (2-11); Neutrophils Absolute Auto 5.2 x10*3/uL (2.0-8.3); Neutrophils Percent Auto 68.5 % (45-73); Platelet Count 261 X10*3/uL (160-400); Red Blood Count 4.65 X10*6/uL (4.20-5.50); Red Cell Distribution Width 12.7 % (11.0-16.0); White Blood Count 7.7 X10*3/uL (4.8-10.8)
[2023-11-05 07:51] LABS: INTERNATIONAL NORM RATIO 0.9 (0.9-1.1); Prothrombin Time 10.6 SEC (11.1-13.3)
[2023-11-05 08:12] LABS: Alanine Aminotransferase 16 U/L (0-31); Alkaline Phosphatase 81 U/L (39-117); Anion Gap 14 (12-20); Aspartate Amino Transferase 17 U/L (5-31); Bilirubin Total 0.3 mg/dL (0.0-1.0); Blood Urea Nitrogen 11 mg/dL (9-16); Calcium 8.7 mg/dL (8.4-10.2); Carbon Dioxide 20 mmol/L (22-29); Chloride 109 mmol/L (96-108); Estimated Glomerular Filt Rate > 60; Glucose Random 98 mg/dL (60-115); Potassium 4.1 mmol/L (3.3-5.1); Sodium 139 mmol/L (135-145); Total Protein 7.3 g/dL (6.5-8.0)
== END 2023-11-05 07:16 | disposition home or self-care (01) ==
LOC: HO.LAB 07:15
PROVIDERS: PCP Nurse Practitioner Family; Visit Provider Internal Medicine Gastroenterology
DX: K31.84 Gastroparesis (principal); K75.81 Nonalcoholic steatohepatitis (NASH); Z78.9 Other specified health status
CPT/HCPCS: 36415; 80053; 85025; 85610

== ENCOUNTER → 2023-11-07 11:33 | Day surgery (SDC) | payer OTHER, SELFPAY ==
[2023-11-07 11:54] VITALS: BMI 32.5
[2023-11-07 12:01] LABS: UPreg QC Valid YES; Urine Pregnancy NEGATIVE (NEGATIVE)
--- NOTE | 2023-11-07 12:10 | PC.NURSE ---
Procedure postponed due to an emergency in IR. Patient agreeable to rescheduling.
== END ==
PROVIDERS: Physician Assistant Surgical; PCP Family Medicine; Visit Provider Internal Medicine Gastroenterology
DX: Z45.2 Encounter for adjustment and management of vascular access device (principal); Z53.8 Procedure and treatment not carried out for other reasons
CPT/HCPCS: 81025

== ENCOUNTER → 2023-11-14 11:21 | Day surgery (SDC) | payer OTHER, SELFPAY ==
--- NOTE | ~2023-11-14 | IR_ITS ---
CLINICAL HISTORY: Patient requires IV access for long-term, intermittent IV hydration. The patient presents to interventional radiology for placement of a port. PROCEDURES: 1. Real-time ultrasound-guided access into the right internal jugular vein after documentation of selected vessel patency, and permanent image storing in the patient records. 2. Placement of a 6.6 Faroese single-lumen power port. CLINICIAN: Shay Johansen PA-C MEDICATIONS: - Versed 2.5 mg, Fentanyl 125 mcg, Lidocaine 1% 10 mL SQ -Antibiotics: Ancef 2g -For additional details, please see nursing flowsheet. Complications: None. Estimated blood loss: <5 ml Specimens: None. Contrast: None. Fluoroscopy time: 1.3 min MODERATE SEDATION TIME: 35 min PROCEDURE NOTE: The procedure, risks, benefits, and alternatives were carefully explained to the patient and written informed consent was obtained. The patient was placed supine on the fluoroscopy table. A timeout was performed. The right neck and chest was prepped and draped in usual sterile fashion. Maximum barrier technique was utilized. Local anesthesia was administered to the access site with 1% lidocaine. Under ultrasound guidance, the right internal jugular vein was accessed with a 5 fr micropuncture set. A 0.035 in wire was advanced into the IVC. A peel-away sheath was advanced over the wire and into the SVC, and the wire was removed. Next, subcutaneous lidocaine was administered to the chest. The port pocket was created after the skin incision, utilizing blunt dissection. Using blunt dissection, a subcutaneous tunnel was created that connects from the port pocket to the venotomy site. Through the peel-away sheath, the 6.6 Faroese port catheter was placed. The catheter position was verified with fluoroscopy to be at the superior vena cava/right atrial junction. The port was connected to the catheter and was placed in the pocket. The venotomy site was closed with a 3-0 Vicryl subcutaneous suture. The port incision site was closed with interrupted 3-0 Vicryl subcutaneous sutures and surgical glue. Prior to closing the skin, 1 g of Ancef solution was placed in the pocket. The port was tested, flushed, and packed with heparin per routine protocol. The patient tolerated the procedure well. The patient was stable after the procedure and was transferred to the PACU. The procedure was performed under moderate sedation and with a dedicated nurse with continuous monitoring of vital signs. A permanent image of the ultrasound the neck and fluoroscopic image of the chest was saved and sent to PACS. FINDINGS: 1. Patent right internal jugular vein 2. Placement of a 6.6 Faroese single lumen power port. 3. Port flushes and aspirates very well with a 10 mL syringe. No pneumothorax. IR/IR cvc insert tunnel w prt/seed core operator IMPRESSION: Placement of a 6.6 Faroese single-lumen power port. PLAN: - The patient will be discharged home when stable by sedation protocol. - Port may be used immediately. This procedure was performed by Shay Johansen PA-C, and directly supervised by Dr. Villalobos
[2023-11-14 11:47] VITALS: BMI 31.9
[2023-11-14 12:15] LABS: UPreg QC Valid YES; Urine Pregnancy NEGATIVE (NEGATIVE)
[2023-11-14 14:37] VITALS: BP 110/69; PULSE 70; RESP 17; TEMP 36.2; O2SAT 99
[2023-11-14 14:52] VITALS: BP 112/72; PULSE 76; RESP 17; O2SAT 99
[2023-11-14 15:00] VITALS: BP 109/67; PULSE 60; RESP 18; TEMP 36.3; O2SAT 100
== END | disposition home or self-care (01) ==
PROVIDERS: Physician Assistant Surgical; Student in an Organized Health Care Education/Training Program; PCP Family Medicine; Visit Provider Internal Medicine Gastroenterology
DX: I99.8 Other disorder of circulatory system (principal); Z78.9 Other specified health status; K22.4 Dyskinesia of esophagus; K21.9 Gastro-esophageal reflux disease without esophagitis; K22.10 Ulcer of esophagus without bleeding; K29.60 Other gastritis without bleeding; M54.2 Cervicalgia; F43.10 Post-traumatic stress disorder, unspecified; E78.5 Hyperlipidemia, unspecified; M79.7 Fibromyalgia; K31.84 Gastroparesis
CPT/HCPCS: 36561; 81025; 99152; 99153; A4364; C1769; C1788; J0690; J1642; J1644; J2250; J2310; J3010

== ENCOUNTER → 2023-11-14 13:40 | Outpatient (BNV) | payer OTHER, SELFPAY | PROVIDERS: PCP Family Medicine; Visit Provider Physician Assistant Surgical | DX: K31.84 Gastroparesis (principal); Z78.9 Other specified health status | CPT/HCPCS: 36561; 76937; 77001 ==

== ENCOUNTER 2023-11-20 12:04 | Outpatient (REF) | payer OTHER, SELFPAY ==
[2023-11-22 22:33] LABS: TS Negative Control Passed; TS Panel A 0; TS Panel B 0; TS Positive Control Passed; TSpotTB Negative (Negative)
== END 2023-11-20 12:05 | disposition home or self-care (01) ==
LOC: HO.LAB 12:04
PROVIDERS: PCP Nurse Practitioner Family; Visit Provider Nurse Practitioner Family
DX: Z11.1 Encounter for screening for respiratory tuberculosis (principal)
CPT/HCPCS: 36415; 86481

== ENCOUNTER 2023-11-27 07:43 | Outpatient (AMB) | payer OTHER, SELFPAY ==
[2023-11-27 07:45] VITALS: BP 98/60; BMI 31.7
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
== END 2023-11-27 08:18 | disposition home or self-care (01) ==
PROVIDERS: PCP Family Medicine; Visit Provider Advanced Practice Midwife
DX: Z30.09 Encounter for other general counseling and advice on contraception (principal)
CPT/HCPCS: 99213

== ENCOUNTER → 2023-11-27 07:43 | Outpatient (BNVA) | payer OTHER, SELFPAY | PROVIDERS: PCP Family Medicine; Visit Provider Advanced Practice Midwife ==

== ENCOUNTER 2023-11-27 08:27 | Outpatient (REF) | payer OTHER, SELFPAY | END 2023-11-27 08:28 | disposition home or self-care (01) | LOC: HO.RADIR 08:27 | PROVIDERS: Visit Provider Physician Assistant Surgical | DX: Z13.89 Encounter for screening for other disorder (principal) ==

== ENCOUNTER 2023-12-17 11:52 | Outpatient (AMB) | payer OTHER, SELFPAY ==
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
== END 2023-12-17 13:49 | disposition home or self-care (01) ==
LOC: HO.HGI 11:52
PROVIDERS: PCP Family Medicine; Visit Provider Internal Medicine Gastroenterology
DX: K31.84 Gastroparesis (principal)
CPT/HCPCS: 99213

== ENCOUNTER → 2023-12-17 11:52 | Outpatient (BNVA) | payer OTHER, SELFPAY | PROVIDERS: PCP Family Medicine; Visit Provider Internal Medicine Gastroenterology ==

== ENCOUNTER 2024-01-03 07:55 | Outpatient (AMB) | payer OTHER, SELFPAY ==
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
[2024-01-03 08:01] VITALS: BMI 32.9
== END 2024-01-03 08:41 | disposition home or self-care (01) ==
PROVIDERS: PCP Family Medicine; Visit Provider Nurse Practitioner Family
DX: G43.009 Migraine without aura, not intractable, without status migrainosus (principal); I49.8 Other specified cardiac arrhythmias; G47.61 Periodic limb movement disorder
CPT/HCPCS: 99214

== ENCOUNTER → 2024-01-03 07:55 | Outpatient (BNVA) | payer OTHER, SELFPAY | PROVIDERS: PCP Family Medicine; Visit Provider Nurse Practitioner Family ==

== ENCOUNTER 2024-02-14 07:56 | Outpatient (AMB) | payer OTHER, SELFPAY ==
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
[2024-02-14 08:02] VITALS: BP 104/60
== END 2024-02-14 08:50 | disposition home or self-care (01) ==
LOC: HO.HWS 07:56
PROVIDERS: PCP Family Medicine; Visit Provider Advanced Practice Midwife
DX: Z30.430 Encounter for insertion of intrauterine contraceptive device (principal); Z32.02 Encounter for pregnancy test, result negative
CPT/HCPCS: 58300

== ENCOUNTER 2024-02-14 07:56 | Outpatient (REF) | payer OTHER, SELFPAY ==
[2024-02-15 14:37] LABS: CT PCR NOT DETECTED (Not Detect.); NG PCR NOT DETECTED (Not Detect.)
== END 2024-02-14 07:57 | disposition home or self-care (01) ==
LOC: HO.LNP 07:56
PROVIDERS: PCP Family Medicine; Visit Provider Advanced Practice Midwife
DX: Z30.430 Encounter for insertion of intrauterine contraceptive device (principal); Z20.2 Contact with and (suspected) exposure to infections with a predominantly sexual mode of transmission
CPT/HCPCS: 58300; 81025; 87491; 87591; J7298

== ENCOUNTER 2024-02-26 10:15 | Outpatient (AMB) | payer OTHER, SELFPAY ==
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
[2024-02-26 10:33] VITALS: BP 110/64; PULSE 67; O2SAT 98; BMI 32.9
== END 2024-02-26 11:47 | disposition home or self-care (01) ==
PROVIDERS: PCP Family Medicine; Visit Provider Physician Assistant
DX: B02.9 Zoster without complications (principal)
CPT/HCPCS: 99213

== ENCOUNTER 2024-03-03 10:17 | Outpatient (AMB) | payer OTHER, SELFPAY ==
[2024-03-03 10:20] VITALS: BP 140/71; PULSE 79; BMI 31.8
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
== END 2024-03-03 11:40 | disposition home or self-care (01) ==
PROVIDERS: PCP Family Medicine; Visit Provider Internal Medicine Gastroenterology
DX: I49.8 Other specified cardiac arrhythmias (principal)
CPT/HCPCS: 99213

== ENCOUNTER → 2024-03-03 10:17 | Outpatient (BNVA) | payer OTHER, SELFPAY | PROVIDERS: PCP Family Medicine; Visit Provider Internal Medicine Gastroenterology ==

== ENCOUNTER → 2024-03-15 16:24 | Outpatient (BNV) | payer OTHER, SELFPAY | PROVIDERS: PCP Nurse Practitioner Family; Visit Provider Radiology Diagnostic Radiology | DX: G51.31 Clonic hemifacial spasm, right (principal) | CPT/HCPCS: 70553 ==

== ENCOUNTER 2024-03-15 16:29 | Outpatient (REF) | payer OTHER, SELFPAY ==
--- NOTE | ~2024-03-15 | MR_ITS ---
EXAMINATION: MR ANGIOGRAPHY BRAIN WITHOUT CONTRAST CLINICAL INFORMATION: Clonic hemifacial spasm, right-sided. COMPARISON: None available. TECHNIQUE: 3-D [id number]. Maximum intensity projections. FINDINGS: Anterior cerebral circulation: ICAs: Petrous, cavernous and supraclinoid segments demonstrated no focal stenosis or intimal flap or abrupt cut off. No gross vascular irregularity. MCA's: No flow signal gap or abrupt cut off. Bifurcation/trifurcation demonstrated no gross flow signal abnormality. ACAs: No flow signal gap or abrupt cut off. Anterior Cormican artery flow signal is present. Ophthalmic arteries demonstrated normal flow signal. Posterior communicating arteries demonstrated normal flow signal bilaterally. Posterior cerebral circulation: V4 segments demonstrated no flow signal gap or intimal flap or abrupt cut off. Codominant vertebral arteries. Left posterior communicating artery flow signal is present. Anterior inferior cerebellar arteries flow signal is present. Right posterior inferior cerebellar artery flow signal is absent. Basilar artery flow signal is normal. Superior cerebellar arteries flow signal is present. management manager: No flow signal gap or abrupt cut off. MR/MR angio head wo con IMPRESSION: No main cerebral artery occlusion or embolus or aneurysm. Probable small caliber, right PICA Electronically signed by: Epi Cortez MD 04/17/2024 03:39 PM EDT
--- NOTE | ~2024-03-15 | MR_ITS ---
EXAMINATION: MR BRAIN WITHOUT AND WITH CONTRAST CLINICAL INFORMATION: Chronic hemifacial spasm, right-sided. COMPARISON: MRI dated October 19, 2016 TECHNIQUE: Multiplanar, multisequence MRI of the brain was obtained before and after the intravenous administration of 7.5 mL gadolinium without reported immediate complications. FINDINGS: No restricted diffusion. No intra-axial or extra-axial enhancing lesion and or mass. No acute intracranial hemorrhage, mass effect, midline shift, hydrocephalus or herniation. Garcia-white matter differentiation is normal. Posterior cranial fossa contents demonstrated no acute hemorrhage or enhancing lesion. Sellar/suprasellar region is normal. Craniocervical junction is normal. Flow-void signal within the main cerebral vessels is normal. Mucosal thickening and secretions in the paranasal sinuses more conspicuous in the right sphenoid sinus. MR/MR head/brain wo/w con IMPRESSION: No acute or structural brain abnormality. No abnormal enhancement. Acute on chronic paranasal sinus disease. Electronically signed by: Epi Cortez MD 04/17/2024 03:33 PM EDT
[2024-03-15] MEDS: gadobutroL 10 ML VIAL IVPUSH (17:27)
== END 2024-03-15 16:30 | disposition home or self-care (01) ==
LOC: HO.MRI 16:29
PROVIDERS: PCP Nurse Practitioner Family; Visit Provider Nurse Practitioner Family
DX: G51.31 Clonic hemifacial spasm, right (principal)
CPT/HCPCS: 70544; 70553; A9585

== ENCOUNTER 2024-03-17 12:59 | Outpatient (AMB) | payer OTHER, SELFPAY ==
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
[2024-03-17 13:33] VITALS: BP 122/71; PULSE 72; BMI 32.5
[2024-03-17 13:45] VITALS: BP 124/76; PULSE 72
[2024-03-17 13:46] VITALS: BP 125/82; PULSE 69
== END 2024-03-17 14:03 | disposition home or self-care (01) ==
PROVIDERS: PCP Family Medicine; Visit Provider Internal Medicine Cardiovascular Disease
DX: I49.8 Other specified cardiac arrhythmias (principal)
CPT/HCPCS: 93010; 99214

== ENCOUNTER → 2024-03-17 12:59 | Outpatient (BNVA) | payer OTHER, SELFPAY | PROVIDERS: PCP Family Medicine; Visit Provider Internal Medicine Cardiovascular Disease | DX: G90.A Postural orthostatic tachycardia syndrome [POTS] (principal) | CPT/HCPCS: 93005 ==

== ENCOUNTER → 2024-03-18 15:02 | Outpatient (REF) | payer OTHER, SELFPAY ==
--- NOTE | 2024-03-18 15:06 | CA_ITS ---
Transthoracic Echocardiogram Patient (Last, First, Middle): Latasha Cole J Gender: Female Date of : 1995 Age: 29 Procedure Date: 03/18/2024 Procedure Type: Transthoracic Echocardiogram Location: OP Height: 154.94 cm Weight: 78.02 kg BSA: 1.77 m2 Heart Rate: 66 bpm BP: 114 / 62 mmHg Geodetic Advisor: SB/VH apical Referring MD: Modesto Escobar MD Symptoms: G45.9 - Transient cerebral ischemic attack, unspecified Study Quality: Adequate ECG Rhythm: Sinus Conclusions: - The left ventricular systolic function is normal. The visually estimated ejection fraction is between 55-60%. - There is no evidence of interatrial shunt by agitated saline. - No obvious valvular pathology seen on this study. Findings Left Ventricle Normal left ventricular cavity size. There is normal left ventricular wall thickness. The left ventricular systolic function is normal. The visually estimated ejection fraction is between 55-60%. Diastolic function is normal for age. E/E prime ratio is <8, consistent with normal filling pressures. Right Ventricle Normal right ventricular cavity size and systolic function. Atria Both atria are normal in size. There is no evidence of interatrial shunt by agitated saline. (rest and valsalva). Aortic Valve There is a normal trileaflet aortic valve. There is no aortic valve stenosis. There is no aortic valve regurgitation. Mitral Valve The mitral valve appears normal. There is no mitral valve regurgitation. There is no mitral valve stenosis. Pulmonic Valve The pulmonic valve is likely normal. Tricuspid Valve Normal tricuspid valve structure. There is trace tricuspid valve regurgitation. There is no evidence of pulmonary hypertension. Great Vessels The asc aorta is normal in size. Venous The inferior vena cava is normal in size and collapses greater than 50% with inspiration. Pericardium/Pleural There is a trivial pericardial effusion. Prior Study Comparison No significant change compared to prior study dated: 01/17/2017. Recommendations, Care & Conclusions No obvious valvular pathology seen on this study. Measurements 2D Linear Measurements IVSd: 0.56 0.6-0.9/0.6-1.0 cm LVIDd: 4.66 3.9-5.3/4.2-5.9 cm LVIDd Index: 2.63 2.4-3.2/2.2-3.1 cm/m2 LVIDs: 2.97 2.0-3.6 cm LVPWd: 0.73 0.7-1.1 cm LA Diam: 3.10 2.7-3.8/3.0-4.0 cm LAIDs Index: 1.75 1.5-2.3 cm/m2 LV Mass: 113.83 67-162/88-224 g LV Mass Index: 64.31 43-95/49-115 g/m2 LVOT Diam: 1.90 3.0+(-)1.3 cm 2D Systolic Function EF 4C: 55.60 >55% EF 2C: 46.70 >55% EF BiP: 51.10 >55% Mitral Valve MV Pk E: 0.65 MV PK A: 0.39 MV Decel Time: 200.00 E/A: 1.60 E'Lateral: 14.90 E'Medial: 7.94 E/E' Med: 8.10 E/E' Lat: 4.30 PHT: 59.00 MVA PHT: 3.73 Decel [place]: 3.24 Aortic Valve AoV Pk Piter: 1.21 AoV Mn Piter: 0.90 AoV VTI: 0.25 AoV Pk Grad: 6.00 Aov Mn Grad: 4.00 STEPHANY Cont.VTI: 2.10 LVOT LVOT Pk Piter: 1.00 LVOT Mn Piter: 0.74 LVOT VTI: 0.18 LVOT Pk Grad: 4.00 LVOT Mn Grad: 2.00 LVOT Diam: 1.90 LVOT Area: 2.84 Diastolic Function MV Pk E: 0.65 MV Pk A: 0.39 E/A: 1.60 E'Medial: 7.94 E/E' Med: 8.10 E' Laterial: 14.90 E/E' Lat: 4.30 Right Ventricle TAPSE (mm): 18.90 TVS' Piter: 10.90 Tricuspid Valve TR Pk Piter: 1.61 TR Pk Grad: 10.00 RA Press: 3.00 Great Vessels Aorta Sinus of Valsalva: 2.60 2.0-3.5 cm Ao Asc: 2.50 2.1-3.4 cm Pulmonary Veins Pulm Vein S/D 0.80 Pulmonary Valve PV Pk Piter: 0.92 Peak PV Grad: 3.00 Updated in Other Vendor System with Status of Final Kenyon Giron MD electronically signed on 03/19/2024 10:25:35 AM with status of Final
== END ==
LOC: HO.CARD 15:02
PROVIDERS: PCP Family Medicine; Visit Provider Internal Medicine Cardiovascular Disease
DX: G45.9 Transient cerebral ischemic attack, unspecified (principal)
CPT/HCPCS: 93306

== ENCOUNTER → 2024-03-18 15:06 | Outpatient (BNV) | payer OTHER, SELFPAY | PROVIDERS: PCP Family Medicine; Visit Provider Internal Medicine | DX: G45.9 Transient cerebral ischemic attack, unspecified (principal) | CPT/HCPCS: 93306 ==

== ENCOUNTER 2024-03-19 08:12 | Outpatient (AMB) | payer OTHER, SELFPAY ==
[2024-03-19 08:15] VITALS: BP 98/62; BMI 33.4
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
== END 2024-03-19 08:59 | disposition home or self-care (01) ==
PROVIDERS: PCP Family Medicine; Visit Provider Advanced Practice Midwife
DX: Z30.431 Encounter for routine checking of intrauterine contraceptive device (principal)
CPT/HCPCS: 99212

== ENCOUNTER → 2024-03-19 08:12 | Outpatient (BNVA) | payer OTHER, SELFPAY | PROVIDERS: PCP Family Medicine; Visit Provider Advanced Practice Midwife ==

== ENCOUNTER 2024-07-07 10:44 | Outpatient (AMB) | payer OTHER, SELFPAY ==
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
[2024-07-07 10:50] VITALS: BP 119/63; PULSE 75; BMI 33.4
== END 2024-07-07 11:41 | disposition home or self-care (01) ==
PROVIDERS: PCP Family Medicine; Visit Provider Internal Medicine Gastroenterology
DX: I49.8 Other specified cardiac arrhythmias (principal)
CPT/HCPCS: 99213

== ENCOUNTER → 2024-07-07 10:44 | Outpatient (BNVA) | payer OTHER, SELFPAY | PROVIDERS: PCP Family Medicine; Visit Provider Internal Medicine Gastroenterology ==

== ENCOUNTER 2024-07-22 07:56 | Outpatient (AMB) | payer OTHER, SELFPAY ==
[2024-07-22 07:59] VITALS: BP 115/64; PULSE 90; O2SAT 99; BMI 34.6
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
--- OUTSIDE RECORDS SUMMARY | 2024-07-22 07:59 | XMS_ITS | Clinical Summary ---
Author Organization [address] [facility] Address [address] [place] [address] Phone Care Team Providers Care Back Closer Name Role Phone Dillon Lo MD Primary Care Provider [phone] Allergies Active Allergy Reactions Criticality Noted Date Comments Banana Headache,Itching,Run ny nose,Swelling 06/17/2024 Chocolate Anaphylaxis,Headache,Hives High Chocolate Flavor Anaphylaxis High 05/20/2021 Codeine 06/17/2024 Covid-19 Vac, Bv (Pfizer)(Pf) Anaphylaxis High 06/17/2024 Covid-19 Vacc,Mrna(Mediastream)(Pf) Anaphylaxis High 05/20/2021 Covid-19 Vaccine, Ad26.Cov2.S (Contractors AID) Anaphylaxis High 06/17/2024 Gluten Protein GI intolerance 05/20/2021 Kiwi Hives,Itching,Shortn ess of breath High 06/17/2024 Latex 06/17/2024 Pineapple Itching,Nausea And Vomiting 06/17/20 24 Medications Medication Sig Dispensed Refills Start Date End Date Status sodium chloride 0.9 % bolus Infuse 1,000 mL into a venous catheter 1 (one) time. Active 21-IRON FU-FOLIC ACID ORAL Take 1 tablet by mouth 1 (one) time each day. Active LORazepam (ATIVAN) 0.5 mg tablet Take 1 tablet (0.5 mg total) by mouth 2 (two) times a day. Active melatonin 10 mg disintegrating tablet Take 1 tablet (10 mg total) by mouth at bedtime. Active midodrine (PROAMATINE) 2.5 mg tablet Take 1 tablet (2.5 mg total) by mouth 1 (one) time each day if needed. Active ondansetron (Zofran) 4 mg tablet Take 1 tablet (4 mg total) by mouth every 6 (six) hours if needed for nausea. Active pyRIDostigmine (MESTINON) 180 mg CR tablet Take 1 tablet (180 mg total) by mouth 2 (two) times a day. Active pyridoxine (B-6) 50 mg tablet Take 1 tablet (50 mg total) by mouth daily. Active ubrogepant (Ubrelvy) 100 mg tablet Take 1 tablet (100 mg total) by mouth 1 (one) time. Active EPINEPHrine (EPIPEN) 0.3 mg/0.3 mL injection Inject 0.3 mL (0.3 mg total) into the thigh if needed. 02/22/2021 Active Ajovy Autoinjector 225 mg/1.5 mL auto-injector Inject 1.5 mL (225 mg total) under the skin every 28 (twenty-eight) days. every month 06/01/2024 Active cyclobenzaprine (FLEXERIL) 5 mg tablet Take 1 tablet (5 mg total) by mouth 3 (three) times a day. Active cyanocobalamin (Vitamin B-12) 100 mcg tablet Take 1 tablet (100 mcg total) by mouth 1 (one) time each day. Active sodium chloride 1 gram tablet Take 1 tablet (1 g total) by mouth 2 (two) times a day. Active Encounters Date Type Department Care Team Description 06/17/2024 9:30 AM EST Office Visit Internal Medicine - [address] [place] [address] Dillon Lo MD POTS (postural orthostatic tachycardia syndrome) (Primary Dx); Anxiety; Gastroparesis from Last 3 Months Social History Tobacco Use Types Packs/Day Years Used Date Smoking Tobacco: Never Assessed Housing Instability Answer Date Recorde d Are you worried that in the next 2 months you may not have stable housing? No 06/16/2024 Food Access & Nutrition Answer Date Rec orded Do you have access to a vari ety of food including fruits and vegetables? Yes 06/16/2024 Access to Healthcare Answer Date Record ed Within the last 3 months, anuj spain many times did you visit the emergency department for your medical care? 0 06/16/2024 Health Literacy Answer Date Recorded How often do you need to hav e someone help you when you read instructions, pamphlets, or other written material from your doctor or pharmacy? Never 06/16/2024 Caregiver: How often do you need to have someone help you when you read instructions, pamphlets, or other written material from your doctor or pharmacy? Not on file 06/16/2024 Financial Risk Answer Date Recorded How hard is it for you to pa y for the very basics like food, housing, medical care, and air conditioning / heating? Very hard 06/16/2024 Transportation Answer Date Recorded Has the lack of transportati on kept you from meetings, work, or from getting things needed for daily living? No Has the lack of transportati on kept you from medical appointments or from getting medications? No 06/16/2024 Social Isolation Answer Date Recorded How often do you feel lonely or isolated from th ose around you? Often 06/16/2024 Food Risk Answer Date Recorded Within the past 12 months we worried whether our food would run out before we got money to buy more. Never true 06/16/2024 Within the past 12 months th e food we bought just didn't last and we didn't have money to get more. Never true 06/16/2024 Dependent Care Answer Date Recorded Do you need help finding or paying for care for your loved ones. For example, child welfare consultant or elderly care for an older adult? No 06/16/2024 Education Answer Date Recorded Do you think completing more education or training, like finishing a GED, going to college, or learning a trade, would be helpful for you? No 06/16/2024 Employment and Income Answer Date Recor ded During the last four weeks, have you been actively looking for work? No 06/16/2024 Living Situation Answer Date Recorded What is your living situation? 1 Sex and Gender Information Value Date Recorded Sex Assigned at Not on file Gender Identity Not on file Sexual Orientation Not on file Job Start Date Occupation Industry Not on file Not on file Not on file Last Filed Vital Signs Vital Sign Reading Time Taken Comments Blood Pressure 116/60 06/17/2024 9:19 AM EST Pulse 69 06/17/2024 9:19 AM EST Temperature 36.6 ??C (97.9 ??F) 06/17/2024 9:19 AM ES T Respiratory Rate - - Oxygen Saturation 98% 06/17/2024 9:19 AM EST Inhaled Oxygen Concentration - - Weight 79 kg (174 lb 3.2 oz) 06/17/2024 9:19 AM EST Height 154.9 cm (5' 1 ) 06/17/2024 9:19 AM EST Body Mass Index 32.91 06/17/2024 9:19 AM EST Plan of Treatment Upcoming Encounters Date Type Department Care Team (Late st Contact Info) Description 08/04/2024 9:00 AM EST Office Visit Adult Medicine [facility] [address] [place], [place] [phone] Enedelia Nguyen NP [address] [place], [place] Health Maintenance Due Date Last Done Comments DTaP,Tdap,and Td Vaccines (1 - Tdap) 2013 Hepatitis B Vaccines (1 of 3 - 19+ 3-dose series) 2013 Cervical Cancer Screening: P ap Smear 2015 COVID-19 Vaccine ( - 2023-2 5 season) 2024 Influenza Vaccine (#1) 2024 HIV Screening 05/19/2024 Hepatitis C Screening 05/19/2024 Depression Screening 06/16/2025 06/16/2024 Social Influencers of Health Screening 06/16/2025 06/16/2024 HIB Vaccines Aged Out No longer eligi ble based on patient's age to complete this topic HPV Vaccines Aged Out No longer eligi ble based on patient's age to complete this topic Hepatitis A Vaccines Aged Out No long er eligible based on patient's age to complete this topic IPV Vaccines Aged Out No longer eligi ble based on patient's age to complete this topic MMR Vaccines Aged Out No longer eligi ble based on patient's age to complete this topic Meningococcal ACWY Vaccine Aged Out N o longer eligible based on patient's age to complete this topic Pneumococcal Vaccine: Pediat rics (0 to 5 Years) and At-Risk Patients (6 to 64 Years) Aged Out No longer eligi ble based on patient's age to complete this topic RSV Immunization Patients Un major 20 months Aged Out No longer eligible b ased on patient's age to complete this topic Varicella Vaccines Aged Out No longer eligible based on patient's age to complete this topic Care Teams Back Closer Relationship Specialty Start Date End Date Dillon Lo MD PCP - General Internal Medicine 06/06/24
== END 2024-07-22 08:53 | disposition home or self-care (01) ==
PROVIDERS: PCP Family Medicine; Visit Provider Nurse Practitioner Family
DX: F45.8 Other somatoform disorders (principal); M26.609 Unspecified temporomandibular joint disorder, unspecified side; G43.009 Migraine without aura, not intractable, without status migrainosus; I49.8 Other specified cardiac arrhythmias; G47.61 Periodic limb movement disorder; G51.31 Clonic hemifacial spasm, right
CPT/HCPCS: 99214

== ENCOUNTER → 2024-07-22 07:56 | Outpatient (BNVA) | payer OTHER, SELFPAY | PROVIDERS: PCP Family Medicine; Visit Provider Nurse Practitioner Family ==

== ENCOUNTER 2024-12-01 09:02 | Outpatient (AMB) | payer OTHER, SELFPAY ==
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
[2024-12-01 09:07] VITALS: BP 105/61; PULSE 77; BMI 33.3
--- OUTSIDE RECORDS SUMMARY | 2024-12-01 09:37 | XMS_ITS | Clinical Summary ---
Author Organization [facility] Address [address] [place] [address] Phone Care Team Providers Care Business Development Name Role Phone Joseph French MD Primary Care Provider [phone] Allergies Active Allergy Reactions Criticality Noted Date Comments Banana Headache,Itching,Run ny nose,Swelling 06/17/2024 Chocolate Anaphylaxis,Headache,Hives High Chocolate Flavor Anaphylaxis High 05/20/2021 Codeine 06/17/2024 Codeine Palpitations 09/09/2024 Covid-19 Vac, Bv (Pfizer)(Pf) Anaphylaxis High 06/17/2024 Covid-19 Vacc,Mrna(Pfizer)(Pf) Anaphylaxis High 05/20/2021 Covid-19 Vaccine, Ad26.Cov2.S (Scotty) Anaphylaxis High 06/17/2024 Gluten Protein GI intolerance 05/20/2021 Kiwi Hives,Itching,Shortn ess of breath High 06/17/2024 Latex 06/17/2024 Latex Anaphylaxis High 09/09/2024 Pineapple Itching,Nausea And Vomiting 06/17/20 24 Medications sodium chloride 0.9 % bolus Infuse 1,000 mL into a venous catheter 1 (one) time. Provided By GI Active LORazepam (ATIVAN) 0.5 mg tablet Take 1 tablet (0.5 mg total) by mouth 2 (two) times a day. Prescribe By Psych at [facility] Active melatonin 10 mg disintegrating tablet Take 1 tablet (10 mg total) by mouth at bedtime. Buy OTC Active midodrine (PROAMATINE) 2.5 mg tablet Take 1 tablet (2.5 mg total) by mouth 1 (one) time each day if needed. Prescribed by cardiology [facility] Active ondansetron (Zofran) 4 mg tablet Take 1 tablet (4 mg total) by mouth every 6 (six) hours if needed for nausea. Prescribed by GI at [facility] Active pyRIDostigmine (MESTINON) 180 mg CR tablet Take 1 tablet (180 mg total) by mouth 2 (two) times a day. Prescribed by GI @ [facility] Active pyridoxine (B-6) 50 mg tablet Take 1 tablet (50 mg total) by mouth daily. Buy OTC Active ubrogepant (Ubrelvy) 100 mg tablet Take 1 tablet (100 mg total) by mouth 1 (one) time. Prescribe By Neurology Active Ajovy Autoinjector 225 mg/1.5 mL auto-injector Inject 1.5 mL (225 mg total) under the skin every 28 (twenty-eight) days. every month Prescribed by Neurology at [facility] 06/01/20 24 Active cyclobenzaprine (FLEXERIL) 5 mg tablet Take 1 tablet (5 mg total) by mouth 3 (three) times a day. Prescribed by Neurologist [facility] Active cyanocobalamin (Vitamin B-12) 100 mcg tablet Take 1 tablet (100 mcg total) by mouth 1 (one) time each day. OTC Active sodium chloride 1 gram tablet Take 1 tablet (1 g total) by mouth 2 (two) times a day. Provided by Active EPINEPHrine (EPIPEN) 0.3 mg/0.3 mL injection Inject 0.3 mL (0.3 mg total) into the thigh if needed for anaphylaxis. 2 each 2 08/04/19 25 Active Active Problems Problem Noted Date Diagnosed Date POTS (postural orthostatic tachycardia syndrome) 08/04/2024 Overview (08/04/2024): Cardiology at [facility], Dr. Escobar Assessment & Plan (08/04/2024 7:15 PM EST): Patient is followed by cardiology at [facility]. She is to continue follow-up as recommended. Gastroparesis 08/04/2024 Overview (08/04/2024): Followed By GI at [facility] Assessment & Plan (08/04/2024 7:15 PM EST): Patient is followed by data report analyst at [facility]. She is to continue follow-up as recommended. ADHD (attention deficit hyperactivity disorder) Anxiety Depression Fibromyalgia Headache Joint pain Psoriatic arthritis ([facility] V24, [facility] V28) PTSD (post-traumatic stress disorder) Vitamin D deficiency Encounters Date Type Department Care Team Description 09/09/2024 9:34 AM EDT - 09/09/2024 2:33 PM EDT Emergency [facility] Emergency [address] [place] [address] Buzz Verdin, Abdominal pain, unspecified abdominal location (Primary Dx) Discharge Disposition: Home or Self Care from Last 3 Months Immunizations Name Administration Dates Next Due Influenza trivalent, MDCK, 0 .5mL, preservative free (Flucelvax) 6mo and older 03/20/2024 Surgical History Surgery Date Site/Laterality Comments COLON SURGERY ESOPHAGOSCOPY / EGD HYSTEROSCOPY TONSILLECTOMY ADENOIDECTOMY, BILATERAL MYRINGOTOMY AND TUBES WISDOM TOOTH EXTRACTION IR PORT A CATH PLACEMENT 10/16/2022 - 11/15/2022 Medical History Medical History Date Comments Anxiety Depression POTS (postural orthostatic tachycardia syndrome) Gastroparesis ADHD (attention deficit hyperactivity disorder) Headache Psoriatic arthritis ([facility] V24, [facility] V28) Fibromyalgia Vitamin D deficiency PTSD (post-traumatic stress disorder) Joint pain Social History Tobacco Use Types Packs/Day Years [...] ed Within the last 3 months, anuj w many times did you visit the emergency [...] for your loved ones. For example, child care centre manager or elderly care for an older adult? [...] Recorded What is your living situation? 1 Comments No Sex and Gender Information Value Date Recorded Sex Assigned at Female 09/09/2024 9:57 AM EDT Legal Sex Female 2:28 PM EST Gender Identity Female 09/09/2024 9:57 AM EDT Sexual Orientation Straight 09/09/2024 9: 57 AM EDT Obstetrics History Last Filed Vital Signs Vital Sign Reading Time Taken Comments Blood Pressure 116/71 09/09/2024 11:30 AM EDT Pulse 69 09/09/2024 11:30 AM EDT Temperature 37.1 ??C (98.7 ??F) 09/09/2024 11:30 AM E DT Respiratory Rate 17 09/09/2024 11:30 AM EDT Oxygen Saturation 99% 09/09/2024 11:30 AM EDT Inhaled Oxygen Concentration - - Weight 79.8 kg (176 lb) 09/09/2024 8:19 AM EDT Height 154.9 cm (5' 1 ) 09/09/2024 8:19 AM EDT Body Mass Index 33.25 09/09/2024 8:19 AM EDT Plan of Treatment Upcoming Encounters Date Type Department Care Team (Late st Contact Info) Description 12/03/2024 8:45 AM EDT Consult General Surgery - [place] [address] [place] [id number] Geo Patel MD [address] [place] [address] Health Maintenance Due Date Last Done Comments HPV Vaccines (2 - 3-dose series) 11/20/2017 10/23/2017 Hepatitis C Screening 09/09/2024 Social Influencers of Health Screening 06/16/2025 06/16/2024 Depression Screening 07/28/2025 07/28/2024 Cervical Cancer Screening: Pap Smear 06/25/2026 06/25/2023 DTaP,Tdap,and Td Vaccines (4 - Td or Tdap) 10/07/2031 10/06/2021, 02/09/2017, 06/18/2012 Hepatitis A Vaccines Aged Out 07/16/2015 No long er eligible based on patient's age to complete this topic Hepatitis B Vaccines Discontinued 02/20/2017, 02/02/2016, 08/20/2015, Additional history exists COVID-19 Vaccine Discontinued 03/08/2021, 01/05/2021 Varicella Vaccines Aged Out 12/28/2021 No longer eligible based on patient's age to complete this topic Influenza Vaccine Completed 03/20/2024, , 05/21/2023, Additional history exists MMR Vaccines Aged Out 03/31/2024, 03/03/2024 No lo nger eligible based on patient's age to complete this topic HIB Vaccines Aged Out No longer eligi ble based on patient's age to complete this topic HIV Screening Discontinued IPV Vaccines Aged Out No longer eligi ble based on patient's age to complete this topic Meningococcal ACWY Vaccine Aged Out N o longer eligible based on patient's age to complete this topic Meningococcal B Vaccine Aged Out No l onger eligible based on patient's age to complete this topic Pneumococcal Vaccine: Pediatrics (0 to 5 Years) and At-Risk Patients (6 to 64 Years) Aged Out No longer eligible based on patient's age to complete this topic RSV Immunization Patients Under 20 months Aged Out No longer eligible based on patient's age to complete this topic Procedures Procedure Name Priority Date/Time Associated Diagnosis Comments CBC WITH AUTO DIFFERENTIAL STAT 09/09/2024 8:31 AM EDT LIPASE STAT 09/09/2024 8:31 AM EDT COMPREHENSIVE METABOLIC PANEL STAT 09/09/2024 8:31 AM EDT CBC AND DIFFERENTIAL STAT 09/09/2024 8:31 AM EDT from Last 3 Months Results * (ABNORMAL) CBC auto differential (09/09/2024 8:31 AM EDT) WBC 7.5 4.8 - 10.8 K/mcL LAB HEMETOLOGY METHOD 09/09/2024 8:58 AM EDT [facility] RBC 4.60 3.80 - 4.80 M/mcL LAB HEMETOLOGY METHOD 09/09/2024 8:58 AM EDT [facility] Hemoglobin 13.7 11.5 - 16.0 g/dL LAB HEMETOLOGY METHOD 09/09/2024 8:58 AM EDT [facility] Hematocrit 40.6 35.0 - 47.0 % LAB [facility] M[facility] 88.8 79.0 - 98.0 FL LAB HEMETOLOGY METHOD 09/09/2024 8:58 AM EDT [facility] MCH 30.0 27.0 - 32.0 pcg LAB HEMETOLOGY METHOD 09/09/2024 8:58 AM T [facility] MCHC 33.7 32.0 - 37.0 g/dL LAB HEMETOLOGY METHOD 09/09/2024 8:58 AM [facility] RDW 12.4 11.0 - 15.0 % LAB HEMETOLOGY METHOD 09/09/2024 8:58 AM T [facility] Platelets 247 130 - 400 K/mcL LAB HEMETOLOGY METHOD 09/09/2024 8:58 AM [facility] MPV 10.6 7.0 - 11.0 FL LAB HEMETOLOGY METHOD 09/09/2024 8:58 AM [facility] NRBC 0.0 <1.0 % LAB HEMETOLOGY METHOD 09/09/2024 8:58 AM [facility] NRBC Absolute 0.00 <0.10 K/mcL LAB HEMETOLOGY METHOD 09/09/2024 8:58 AM [facility] Neutrophils Relative 62.8 % LAB HEMETOLOGY METHOD 09/09/2024 8:58 AM [facility] Lymphocytes Relative 25.4 % LAB HEMETOLOGY METHOD 09/09/2024 8:58 AM [facility] Monocytes Relative 6.1 % LAB HEMETOLOGY METHOD 09/09/2024 8:58 AM [facility] Eosinophils Relative 4.7 % LAB HEMETOLOGY METHOD 09/09/2024 8:58 AM [facility] Basophils Relative 0.5 % LAB HEMETOLOGY METHOD 09/09/2024 8:58 AM [facility] Immature Granulocytes Relative 0.5 % LAB HEMETOLOGY METHOD 09/09/2024 8:58 AM [facility] Neutrophils Absolute 4.70 1.50 - 7.00 K/mcL LAB HEMETOLOGY METHOD 09/09/2024 8:58 AM EDT [facility] Lymphocytes Absolute 1.90 1.00 - 5.00 K/mcL LAB HEMETOLOGY METHOD 09/09/2024 8:58 AM EDT [facility] Monocytes Absolute 0.46 0.20 - 1.00 K/mcL LAB HEMETOLOGY METHOD 09/09/2024 8:58 AM EDT [facility] Eosinophils Absolute 0.35 0.00 - 0.50 K/[facility] LAB HEMETOLOGY METHOD 09/09/2024 8:58 AM EDT [facility] Basophils Absolute 0.04 0.00 - 0.20 K/mcL LAB HEMETOLOGY METHOD 09/09/2024 8:58 AM EDT [facility] Immature Granulocytes Absolute 0.04(H) 0.00 - 0.03 K/mcL LAB HEMETOLOGY METHOD 09/09/2024 8:58 AM EDT [facility] Blood Venous blood specimen / Unknown Venipuncture / Unknown 09/09/2024 8:31 AM EDT 09/09/2024 8:50 AM EDT Buzz Verdin DO LAB BLOOD ORDERABLES Final Result [facility] [address] [place] [address], * Lipase (09/09/2024 8:31 AM EDT) Lipase 24 13 - 75 unit/L LAB CHEMISTRY METHOD 09/09/2024 9:12 AM EDT [facility] Blood Venous blood specimen / Unknown Venipuncture / Unknown 09/09/2024 8:31 AM EDT 09/09/2024 8:49 AM EDT us Buzz Giles Verdin DO LAB BLOOD ORDERABLES Final Result [facility] [address] [place] [address], [place] [phone] * Comprehensive metabolic panel (09/09/2024 8:31 AM EDT) Sodium 142 133 - 145 mmol/L LAB CHEMISTRY METHOD 09/09/2024 9:12 AM [facility] Potassium 3.6 3.5 - 5.5 mmol/L LAB CHEMISTRY METHOD 09/09/2024 9:12 AM [facility] Chloride 110 96 - 110 mmol/L LAB CHEMISTRY METHOD 09/09/2024 9:12 AM [facility] CO2 23 21 - 32 mmol/L LAB CHEMISTRY METHOD 09/09/2024 9:12 AM [facility] Anion Gap 9 3 - 11 LAB CHEMISTRY METHOD 09/09/2024 9:12 AM [facility] Glucose 90 70 - 100 mg/dL LAB CHEMISTRY METHOD 09/09/2024 9:12 AM [facility] BUN 8 5 - 25 mg/dL LAB CHEMISTRY METHOD 09/09/2024 9:12 AM [facility] Creatinine 0.60 0.50 - 1.10 mg/dL LAB CHEMISTRY METHOD 09/09/2024 9:12 AM [facility] eGFR 124 >=60 mL/min/1. 73m2 LAB CHEMISTRY METHOD 09/09/2024 9:12 AM [facility] Comment:Calculation based on the??Chronic Kidney Disease Epidemiology Collaboration (CKD-EPI) equation refit??without adjustment for race. BUN/Creatinine Ratio 13.3 LAB CHEMISTRY METHOD 09/09/2024 9:12 AM [facility] Calcium 8.6 8.5 - 10.5 mg/dL LAB CHEMISTRY METHOD 09/09/2024 9:12 AM EDT [facility] AST (SGOT) 14 10 - 42 unit/L LAB CHEMISTRY METHOD 09/09/2024 9:12 AM T [facility] ALT (SGPT) 26 10 - 60 unit/L LAB CHEMISTRY METHOD 09/09/2024 9:12 AM [facility] Alkaline Phosphatase 74 42 - 121 unit/L LAB CHEMISTRY METHOD 09/09/2024 9:12 AM T [facility] Total Protein 7.4 6.0 - 8.0 g/dL LAB CHEMISTRY METHOD 09/09/2024 9:12 AM [facility] Albumin 3.6 3.2 - 5.0 g/dL LAB CHEMISTRY METHOD 09/09/2024 9:12 AM [facility] Total Bilirubin 0.4 0.0 - 1.4 mg/dL LAB CHEMISTRY METHOD 09/09/2024 9:12 AM T [facility] Blood Venous blood specimen / Unknown Venipuncture / Unknown 09/09/2024 8:31 AM EDT 09/09/2024 8:49 AM EDT Buzz Verdin DO LAB BLOOD ORDERABLES Final Result [facility] [address] [place] [address], from Last 3 Months Insurance AETNA DOMESTIC [employer] Care Teams Business Development Relationship Specialty Start Date End Date Joseph French MD [address] [place] [address] PCP - General Family Medicine 09/25/24
== END 2024-12-01 09:45 | disposition home or self-care (01) ==
LOC: HO.HGI 09:02
PROVIDERS: PCP Family Medicine; Visit Provider Internal Medicine Gastroenterology
DX: K31.84 Gastroparesis (principal)
CPT/HCPCS: 99213

== ENCOUNTER 2024-12-18 14:46 | Outpatient (AMB) | payer OTHER, SELFPAY ==
--- OUTSIDE RECORDS SUMMARY | 2024-12-18 14:49 | XMS_ITS | Patient Health Record ---
Author Organization [facility] [address] Address [address] [place] [address] Care Team Providers Care Slag Worker Name Role Phone JAC DUMONT Unavailable [phone] Reason For Referral No Information Encounters Encounter Location Date Provider Diagnosis [facility] [address] [address] 06/19/2024 JAC DUMONT Plan Of Treatment No Information Insurance Providers Payer Name Payer Address Payer Phone Subscriber Number Group Number Insured Name Patient Relationship to Insured Coverage Start Date Coverage End Date [employer] [address] [address] [place] [address] [id number] Latasha Cole Self - patient is the insured
--- OUTSIDE RECORDS SUMMARY | 2024-12-18 14:49 | XMS_ITS | Clinical Summary ---
Author Organization [facility] Address [address] [place] [address] Phone Care Team Providers Care Starch Crab Name Role Phone Joseph French MD Primary Care Provider [phone] Allergies Active Allergy Reactions Criticality Noted Date [...] times a day. Prescribe By Psych at [facility] Active melatonin 10 mg disintegrating tablet Take 1 tablet (10 mg total) by mouth at bedtime. Buy OTC Active midodrine (PROAMATINE) 2.5 mg tablet Take 1 tablet (2.5 mg total) by mouth 1 (one) time each day if needed. Prescribed by cardiology [facility] Active ondansetron (Zofran) 4 mg tablet Take 1 tablet (4 mg total) by mouth every 6 (six) hours if needed for nausea. Prescribed by GI at [facility] Active pyridoxine (B-6) 50 mg tablet Take 1 tablet (50 mg total) by mouth daily. Buy OTC Active ubrogepant (Ubrelvy) 100 mg tablet Take 1 tablet (100 mg total) by mouth 1 (one) time. Prescribe By Neurology Active cyclobenzaprine (FLEXERIL) 5 mg tablet Take 1 tablet (5 mg total) by mouth 3 (three) times a day. Prescribed by Neurologist [facility] Active cyanocobalamin (Vitamin B-12) 100 mcg tablet [...] if needed for anaphylaxis. 2 each 2 Active aprepitant (EMEND) 80 mg capsule Take 1 capsule (80 mg total) by mouth 1 (one) time each day. Active Qulipta 60 mg tablet Use 60 mL in the mouth or throat 1 (one) time each day. Active methylphenidate 18 mg ER tablet Take 1 tablet (18 mg total) by mouth 1 (one) time each day in the morning. Max Daily Amount: 18 mg Active metoclopramide (REGLAN) 10 mg tablet Take 1 tablet (10 mg total) by mouth 4 (four) times a day (before meals and nightly). 120 each 025 2024 Active pyRIDostigmine (MESTINON) 180 mg CR tablet Take 1 tablet (180 mg total) by mouth 2 (two) times a day. Prescribed by GI @ [facility] 2024 Discontinued Ajovy Autoinjector 225 mg/1.5 mL auto-injector Inject 1.5 mL (225 mg total) under the skin every 28 (twenty-eight) days. every month Prescribed by Neurology at [facility] 024 2024 Discontinued Active Problems Problem Noted Date Diagnosed Date Chronic migraine without aura 12/08/2024 Overview (12/08/2024): Hazel Chisholm [employer] Class 1 obesity 12/08/2024 Gastroesophageal reflux disease 12/08/2024 Overweight with body mass index (BMI) 25.0-29.9 12/08/2024 Palpitations 12/08/2024 Psoriasis 12/08/2024 Restless legs syndrome 12/08/2024 Sleep apnea 12/08/2024 Rupture of appendix 12/08/2024 Vasovagal syncope 12/08/2024 Mixed anxiety depressive disorder 12/08/2024 Depression 12/08/2024 PTSD (post-traumatic stress disorder) 12/08/2024 Chronic headache disorder 12/08/2024 Fibromyalgia 12/08/2024 Gastroparesis 12/08/2024 Overview (12/08/2024): 2022. Dr. Mallika Price Generalized joint pain 12/08/2024 Postural orthostatic tachycardia syndrome (POTS) 12/08/2024 Overview (12/08/2024): 2016. Dr. Modesto Escobar Heterozygous MTHFR mutation C677T 12/08/2024 MTHFR gene mutation 12/08/2024 Allergic reaction to vaccine 12/08/2024 Hiatal hernia with GERD 12/08/2024 POTS (postural orthostatic tachycardia syndrome) 08/04/2024 Overview (08/04/2024): Cardiology at [facility], Dr. Escobar Assessment & Plan (08/04/2024 7:15 PM EST): Patient is followed by cardiology at [facility]. She is to continue follow-up as recommended. Gastroparesis 08/04/2024 Overview (08/04/2024): Followed By GI at [facility] Assessment & Plan (08/04/2024 7:15 PM EST): Patient is followed by telephone clerk telegraph office at [facility]. She is to continue follow-up as recommended. ADHD (attention deficit hyperactivity disorder) Anxiety Depression Fibromyalgia Headache Joint pain Psoriatic arthritis ([facility] V24, [facility] V28) PTSD (post-traumatic stress disorder) Vitamin D deficiency Encounters Date Type Department Care Team Description 12/08/2024 1:00 PM EDT Consult Bariatric Surgery - [address] [place] [address] Marlin Pathak MD Gastroparesis (Primary Dx); Hiatal hernia; Nausea and vomiting, unspecified vomiting type; POTS (postural orthostatic tachycardia syndrome) from Last 3 Months Immunizations Name Administration [...] (attention deficit hyperactivity disorder) Headache Psoriatic arthritis ([facility] V24, [facility] V28) Fibromyalgia Vitamin D deficiency PTSD (post-traumatic [...] for your loved ones. For example, child attendant or elderly care for an older adult? [...] Sign Reading Time Taken Comments Blood Pressure 113/78 12/08/2024 12:49 PM EDT Pulse 91 12/08/2024 12:49 PM EDT Temperature 36.9 C (98.4 F) 12/08/2024 12:49 PM EDT Respiratory Rate 17 09/09/2024 11:30 AM EDT Oxygen Saturation 99% 09/09/2024 11:30 AM EDT Inhaled Oxygen Concentration - - Weight 82.6 kg (182 lb) 12/08/2024 12:49 PM EDT Height 154.9 cm (5' 1 ) 12/08/2024 12:49 PM EDT Body Mass Index 34.39 12/08/2024 12:49 PM EDT Plan of Treatment Upcoming Encounters Date Type Department Care Team (Late st Contact Info) Description 01/26/2025 9:00 AM EDT Pre-Admission Testing Pre-Admission Testing [address] [place] [phone] 02/12/2025 7:30 AM EDT Hospital Encounter Main OR [address] [place] [address] Marlin Pathak MD [address] [phone] 02/12/2025 7:30 AM EDT - 02/12/2025 12:00 PM EDT Surgery Main OR [address] [place] [id number] Marlin Pathak MD [address] [phone] DAVINCI HIATAL HERNIA REPAIR WITH FUNDOPLICATION [54090 (CPT )] Scheduled Procedures Name Priority Associated Diagnoses Date/Ti me REPAIR HERNIA HIATAL ROBOT Gastroparesis Hiatal hernia with GERD 02/12/2025 7:30 AM EDT PYLOROPLASTY ROBOT Gastroparesis Hiatal hernia with GERD 02/12/2025 7:30 AM EDT Health Maintenance Due Date Last Done Comments HPV Vaccines (2 - 3-dose series) 11/20/2017 10/23/2017 Hepatitis C Screening 09/09/2024 Influenza Vaccine (#1) 2025 , 03/19/2024, 05/21/2023, Additional history exists Social Influencers of Health Screening 06/16/2025 06/16/2024 [...] complete this topic MMR Vaccines Aged Out 03/31/2024, 03/03/2024 No [...] on patient's age to complete this topic Insurance [employer] Care Teams Starch Crab Relationship Specialty Start Date End Date Joseph French MD [address] [place] [phone] PCP - General Family Medicine 09/25/24
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
[2024-12-18 14:53] VITALS: BP 90/68; PULSE 73; BMI 33.7
== END 2024-12-18 15:29 | disposition home or self-care (01) ==
LOC: HO.HCS 14:47
PROVIDERS: PCP Family Medicine; Visit Provider Nurse Practitioner Family
DX: I49.8 Other specified cardiac arrhythmias (principal); R00.2 Palpitations; Z01.810 Encounter for preprocedural cardiovascular examination
CPT/HCPCS: 93010; 99213; G2211

== ENCOUNTER → 2024-12-18 14:46 | Outpatient (BNVA) | payer OTHER, SELFPAY | PROVIDERS: PCP Family Medicine; Visit Provider Nurse Practitioner Family | DX: Z01.810 Encounter for preprocedural cardiovascular examination (principal) | CPT/HCPCS: 93005 ==

== ENCOUNTER 2025-01-22 07:52 | Outpatient (AMB) | payer OTHER, SELFPAY ==
[2025-01-22 07:51] VITALS: BP 122/80; PULSE 98; O2SAT 99; BMI 33.8
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
--- OUTSIDE RECORDS SUMMARY | 2025-01-22 07:54 | XMS_ITS | Patient Health Record ---
Author Organization [facility] [address] Address [address] [place] [address] Care Team Providers Care Procurement Representative Name Role Phone JAC DUMONT Unavailable [phone] Reason For Referral No Information Encounters Encounter Location Date Provider Diagnosis [facility] [phone] [address] 06/19/2024 JAC DUMONT Plan Of Treatment No Information Insurance Providers Payer Name Payer Address Payer Phone Subscriber Number Group Number Insured Name Patient Relationship to Insured Coverage Start Date Coverage End Date [employer] [address] [address] [place] [address] [id number] Latasha Cole Self - patient is the insured
--- OUTSIDE RECORDS SUMMARY | 2025-01-22 07:54 | XMS_ITS | Clinical Summary ---
Author Organization [facility] Address [address] [place] [address] Phone Care Team Providers Care Nursing Program Manager Name Role Phone Joseph French MD Primary Care Provider [phone] Allergies Active Allergy Reactions Criticality Noted Date [...] times a day. Prescribe By Psych at [facility] Active melatonin 10 mg disintegrating tablet Take 1 tablet (10 mg total) by mouth at bedtime. Buy OTC Active midodrine (PROAMATINE) 2.5 mg tablet Take 1 tablet (2.5 mg total) by mouth 1 (one) time each day if needed. Prescribed by cardiology [facility] Active ondansetron (Zofran) 4 mg tablet Take 1 tablet (4 mg total) by mouth every 6 (six) hours if needed for nausea. Prescribed by GI at [facility] Active pyridoxine (B-6) 50 mg tablet Take 1 tablet (50 mg total) by mouth daily. Buy OTC Active ubrogepant (Ubrelvy) 100 mg tablet Take 1 tablet (100 mg total) by mouth 1 (one) time. Prescribe By Neurology Active cyclobenzaprine (FLEXERIL) 5 mg tablet Take 1 tablet (5 mg total) by mouth 3 (three) times a day. Prescribed by Neurologist [facility] Active cyanocobalamin (Vitamin B-12) 100 mcg tablet [...] anaphylaxis. 2 each 2 08/04/19 25 Active aprepitant (EMEND) 80 mg capsule Take 1 capsule (80 mg total) by mouth 1 (one) time each day. 12/02/19 25 Active Qulipta 60 mg tablet Use 60 mL in the mouth or throat 1 (one) time each day. 12/02/19 25 Active methylphenidate 18 mg ER tablet Take 1 tablet (18 mg total) by mouth 1 (one) time each day in the morning. Max Daily Amount: 18 mg 11/18/19 25 Active metoclopramide (REGLAN) 10 mg tablet Take 1 tablet (10 mg total) by mouth 4 (four) times a day (before meals and nightly). 120 each 12/09/19 25 025 Active Problems Problem Noted Date Diagnosed Date Chronic migraine without aura 12/08/2024 Overview (12/08/2024): Hazel Chisholm [employer] Class 1 obesity 12/08/2024 Gastroesophageal reflux disease [...] tachycardia syndrome) 08/04/2024 Overview (08/04/2024): Cardiology at [facility], Dr. Escobar Assessment & Plan (08/04/2024 7:15 PM EST): Patient is followed by cardiology at [facility]. She is to continue follow-up as recommended. Gastroparesis 08/04/2024 Overview (08/04/2024): Followed By GI at [facility] Assessment & Plan (08/04/2024 7:15 PM EST): Patient is followed by building performance consultant at [facility]. She is to continue follow-up as recommended. ADHD (attention deficit hyperactivity disorder) Anxiety Depression Fibromyalgia Headache Joint pain Psoriatic arthritis ([facility] V24, [facility] V28) PTSD (post-traumatic stress disorder) Vitamin D deficiency Encounters Date Type Department Care Team Description 12/08/2024 1:00 PM EDT Consult Bariatric Surgery - [address] [place] [address] Marlin Pathak MD Gastroparesis (Primary [...] (attention deficit hyperactivity disorder) Headache Psoriatic arthritis ([facility] V24, [facility] V28) Fibromyalgia Vitamin D [...] Record ed Within the last 3 months, ho w many times did you visit the [...] care for your loved ones. For example, early childhood education worker or elderly care for an older adult? [...] Description 01/26/2025 9:00 AM EDT Pre-Admission Testing [facility] Pre-Admission Testing [address] [place] [address] 02/12/2025 7:30 AM EDT Hospital Encounter [facility] Main OR [address] [place] [id number] Marlin Pathak MD [address] [address] 02/12/2025 7:30 AM EDT - 02/12/2025 12:00 PM EDT Surgery [facility] Main OR [address] [place] [id number] Marlin Pathak MD [address] [address] DAVINCI HIATAL HERNIA REPAIR WITH FUNDOPLICATION [67233 (CPT )] Scheduled Procedures Name Priority Associated [...] Social Influencers of Health Screening 06/16/2025 06/16/2024 Cervical Cancer Screening: Pap Smear 06/25/2026 06/25/2023 [...] on patient's age to complete this topic Depression Screening Completed 07/28/2024 HIB Vaccines Aged Out No longer eligi [...] 5 Years) and At-Risk Patients (6 to 49 Years) Aged Out No longer eligible based on patient's age to complete this topic RSV Immunization Patients Under 20 months Aged Out No longer eligible based on patient's age to complete this topic Insurance [employer] Care Teams Nursing Program Manager Relationship Specialty Start Date End Date Joseph French MD [address] [place] [address] PCP - General Family Medicine 09/25/24
== END 2025-01-22 08:37 | disposition home or self-care (01) ==
LOC: HO.HSMS 07:52
PROVIDERS: PCP Family Medicine; Visit Provider Nurse Practitioner Family
DX: G43.009 Migraine without aura, not intractable, without status migrainosus (principal); F45.8 Other somatoform disorders; M26.609 Unspecified temporomandibular joint disorder, unspecified side; I49.8 Other specified cardiac arrhythmias; G47.61 Periodic limb movement disorder; G51.31 Clonic hemifacial spasm, right
CPT/HCPCS: 99214

== ENCOUNTER 2025-03-11 07:27 | Outpatient (REF) | payer OTHER, SELFPAY ==
--- OUTSIDE RECORDS SUMMARY | 2024-06-19 04:30 | XMS_ITS ---
Author Organization [facility] [address] Address [address] [place] [address] Care Team Providers Care Computer Hardware Designer Name Role Phone JAC DUMONT Unavailable [phone] Encounters Encounter Location Date Provider Diagnosis [facility] [address] [place] [phone] 06/19/2024 JAC DUMONT Plan Of Treatment No Information Progress Notes * Yola GUERRAOB: [birth year] (30 yo F)Acc No.[id number]:06/19/2024 Progress Notes Patient: Latasha URIBE Provider: Giles DUMONT PA-C :1995 A ge:29 Y S ex:Female Date:06/19/2024 Address:[address] [place], [place] [phone] Subjective: * Chief Complaints: * * Medical History: Objective: * Vitals: Assessment: Plan: * Treatment: * Procedure Codes: 9 9199 NO SHOW OFFICE VISIT * Images: Billing Information: * Visit Code: * Procedure Codes: 74199 NO SHOW OFFICE VISIT. * Electronic signature of BROOK DUMONT PA-C on 03/11/2025 at 07:30 AM EDT Sign off status: Pending * Provider: Giles DUMONT PA-C Date: 0 06/19/2024 Generated for Valentine leon/Samantha/eTtavonsmitting on: 0 03/11/2025 07:30 AM EDT
--- NOTE | ~2025-03-11 | XR_ITS ---
EXAMINATION: XR CERVICAL SPINE CLINICAL INFORMATION: M54.2 - Cervicalgia COMPARISON: None available. TECHNIQUE: Lateral views in neutral, flexion and extension position. AP view. Atlantoodontoid view. FINDINGS: Craniocervical junction is intact. No acute cortical disruption or gross malalignment. There is 2 mm retrolisthesis of C3-4 and C4-5 during extension which reduces in neutral position. No lytic or blastic lesions. Mild prominent transverse processes of C7, bilaterally. There is a catheter overlapping the right lung apex region, unclear exact location. The upper airways patent. XR/XR cervical spine w flex/ext IMPRESSION: Concerning instability at C3-4 and C4-5. No acute fracture or gross listhesis. Electronically signed by: Epi Cortez MD 03/11/2025 08:26 AM EDT
--- OUTSIDE RECORDS SUMMARY | 2025-03-11 07:30 | XMS_ITS | Clinical Summary ---
Author Organization [facility] Address [address] [place] [address] Phone Care Team Providers Care Extrusion Press Adjuster Name Role Phone Joseph French MD Primary Care Provider [phone] Allergies Active Allergy Reactions Criticality Noted Date Comments Banana Itching,Swelling,Hea dac he,Runny nose Low 06/17/2024 Chocolate Anaphylaxis,Headache ,Hi ves High 06/17/2024 Chocolate Flavor Anaphylaxis High 05/20/2021 Codeine Palpitations Low 06/17/2024 States childhood Codeine Palpitations 09/09/2024 Covid-19 Vac, Bv (Pfizer)(Pf) Anaphylaxis High 06/17/2024 Covid-19 Vacc,Mrna(Cell>Point)(Pf ) Anaphylaxis High 05/20/2021 Covid-19 Vaccine, Ad26.Cov2.S (XbyMe) Anaphylaxis High 06/17/2024 Gluten Protein GI intolerance Low 05/20/2021 Kiwi Hives,Itching,Shortn ess of breath High 06/17/2024 Latex Hives Low 06/17/2024 Latex Anaphylaxis High 09/09/2024 Pineapple Itching,Nausea And Vomiting Low 06/17/2024 Pistachio Nut Swelling 01/26/2025 Medications sodium chloride 0.9 % bolus Infuse 1,000 mL into a venous catheter 1 (one) time. Provided By GI Active LORazepam (ATIVAN) 0.5 mg tablet Take 1 tablet (0.5 mg total) by mouth 2 (two) times a day. Prescribe By Psych at [facility] Active melatonin 10 mg disintegrating tablet Take 1 tablet (10 mg total) by mouth at bedtime. Buy OTC Active midodrine (PROAMATINE) 2.5 mg tablet Take 1 tablet (2.5 mg total) by mouth 1 (one) time each day if needed. Prescribed by cardiology [facility] Active ondansetron (Zofran) 4 mg tablet Take 1 tablet (4 mg total) by mouth every 6 (six) hours if needed for nausea. Prescribed by GI at [facility] Active pyridoxine (B-6) 50 mg tablet Take 1 tablet (50 mg total) by mouth daily. Buy OTC Active ubrogepant (Ubrelvy) 100 mg tablet Take 1 tablet (100 mg total) by mouth 1 (one) time. Prescribe By Neurology Active cyanocobalamin (Vitamin B-12) 100 mcg tablet Take 1 tablet (100 mcg total) by mouth 1 (one) time each day. OTC Active sodium chloride 1 gram tablet Take 1 tablet (1 g total) by mouth 2 (two) times a day. Provided by GI Active EPINEPHrine (EPIPEN) 0.3 mg/0.3 mL injection [...] Active methylphenidate 18 mg ER tablet Take 27 mg by mouth 1 (one) time each day in the morning. 11/18/19 25 Active baclofen (LIORESAL) 10 mg tablet 1 tablet (10 mg total) 1 (one) time each day if needed for muscle spasms. Active famotidine (PEPCID) 40 mg tablet Take by mouth. Activ e cetirizine (ZyrTEC) 10 mg tablet Take 1 tablet (10 mg total) by mouth 1 (one) time each day. Active acetaminophen (TYLENOL) 500 mg tablet Take 2 tablets (1,000 mg total) by mouth every 8 (eight) hours. 30 tablet 02/14/20 25 Active docusate sodium (COLACE) 100 mg capsule Take 1 capsule (100 mg total) by mouth 1 (one) time each day. 7 each 02/14/20 25 Active oxyCODONE (ROXICODONE) 5 mg immediate release tablet Take 1 tablet (5 mg total) by mouth every 6 (six) hours if needed for severe pain. Max Daily Amount: 20 mg 10 tablet 02/18/20 25 Active esomeprazole (NexIUM) [address] capsule Take 1 capsule (40 mg total) by mouth 1 (one) time each day before breakfast. Do not open capsule. 025 Discontin ued(Stop Taking at Discharge ) oxyCODONE (ROXICODONE) 5 mg immediate release tablet Take 1 tablet (5 mg total) by mouth every 6 (six) hours if needed for severe pain. Max Daily Amount: 20 mg 12 tablet 02/14/20 25 025 Discontin ued(Reord er) Active Problems Problem Noted Date Diagnosed Date Chronic migraine without aura 12/08/2024 Overview (12/08/2024): Hazel Chisholm NP Class 1 obesity 12/08/2024 Gastroesophageal reflux disease [...] mutation 12/08/2024 Allergic reaction to vaccine 12/08/2024 POTS (postural orthostatic tachycardia syndrome) 08/04/2024 Overview (08/04/2024): Cardiology at [facility], Dr. Escobar Assessment & Plan (08/04/2024 7:15 PM EST): Patient is followed by cardiology at [facility]. She is to continue follow-up as recommended. Gastroparesis 08/04/2024 Overview (08/04/2024): Followed By GI at [facility] Assessment & Plan (08/04/2024 7:15 PM EST): Patient is followed by pier worker at [facility]. She is to continue follow-up as recommended. ADHD (attention deficit hyperactivity disorder) Anxiety Depression Fibromyalgia Headache Joint pain Psoriatic arthritis (CMS/HCC V24, [facility]/HCC V28) PTSD (post-traumatic stress disorder) Vitamin D deficiency Resolved Problems Problem Noted Date Diagnosed Date Resolved Date Hiatal hernia with GERD 12/08/2024 08/2 02/2025 Encounters Date Type Department Care Team Description 03/02/2025 11:45 AM EDT Office Visit Bariatric Surgery [address] [phone] aMrlin Pathak MD S/P Aniyah fundoplication (with gastrostomy tube placement) ([facility] V24, [facility] V28) (Primary Dx); Food intolerance 02/17/2025 Telephone Bariatric Surgery [address] [phone] Marlin Pathak MD 02/12/2025 9:17 AM EDT Anesthesia Event [facility] Main OR [address] [place] [address] Ramírez Garrido DO 02/12/2025 9:00 AM EDT - 02/12/2025 1:30 PM EDT Surgery [facility] OR [address] [place] [phone] Marlin Pathak MD DAVINCI HIATAL HERNIA REPAIR WITH FUNDOPLICATION [11107 (CPT )] 02/12/2025 7:17 AM EDT - 02/13/2025 4:58 PM EDT Hospital Encounter [facility] Medical Surgical Unit [address] [place] [phone] Marlin Pathak MD Discharge Disposition: Home or Self Care from [...] (attention deficit hyperactivity disorder) Headache Psoriatic arthritis (CMS/HCC V24, CMS/HCC V28) Fibromyalgia Vitamin D deficiency PTSD (post-traumatic stress disorder) Joint pain Fibromyalgia Social History Tobacco Use Types Packs/Day Years Used Date Smoking Tobacco: Never Smokeless Tobacco: Never Tobacco Cessation:Counseling Given: Not Answered Alcohol Use Standard Drinks/Week Comments Never 0 (1 standard drink = 0.6 oz pur e alcohol) Housing Instability Answer Date Recorde d Are you worried that in the next 2 months you may not have stable housing? No 02/12/2025 Food Access & Nutrition Answer Date Rec orded Do you have access to a vari ety of food including fruits and vegetables? Yes 02/12/2025 Access to Healthcare Answer Date Record ed Within the last 3 months, ho w many times did you visit the emergency department for your medical care? 0 02/12/2025 Health Literacy Answer Date Recorded How often [...] and air conditioning / heating? Very hard 02/12/2025 Transportation Answer Date Recorded Has the lack of transportati on kept you from meetings, work, or from getting things needed for daily living? No Has the lack of transportati on kept you from medical appointments or from getting medications? No 02/12/2025 Social Isolation Answer Date Recorded How often do you feel lonely or isolated from th ose around you? Never 02/12/2025 Food Risk Answer Date Recorded Within the past 12 months we worried whether our food would run out before we got money to buy more. Never true 02/12/2025 Within the past 12 months th e food we bought just didn't last and we didn't have money to get more. Never true 02/12/2025 Dependent Care Answer Date Recorded Do you need help finding or paying for care for your loved ones. For example, director child abuse therapy or elderly care for an older adult? [...] Recorded What is your living situation? 1 Interpersonal Safety Answer Date Record ed Physical Abuse 02/12/2025 Verbal Abuse 02/12/2025 Comments No Sex and Gender Information Value Date Recorded Sex Assigned at Female 09/09/2024 9:57 AM EDT Legal Sex Female 2:28 PM EST Gender Identity Female 09/09/2024 9:57 AM EDT Sexual Orientation Straight 09/09/2024 9: 57 AM EDT Obstetrics History Last Filed Vital Signs Vital Sign Reading Time Taken Comments Blood Pressure 110/66 03/02/2025 11:44 AM EDT Pulse 69 03/02/2025 11:44 AM EDT Temperature 36.8 C (98.3 F) 03/02/2025 11:44 AM EDT Respiratory Rate 15 02/13/2025 2:54 PM EDT Oxygen Saturation 98% 02/13/2025 2:54 PM EDT Inhaled Oxygen Concentration - - Weight 76.2 kg (168 lb) 03/02/2025 11:44 AM EDT Height 154.9 cm (5' 1 ) 03/02/2025 11:44 AM EDT Body Mass Index 31.74 03/02/2025 11:44 AM EDT Plan of Treatment Upcoming Encounters Date Type Department Care Team (Late st Contact Info) Description 03/16/2025 9:00 AM EDT Office Visit Bariatric Surgery - [place] [address] [place] [address] Marlin Pathak MD [address] [place] [address] 03/24/2025 8:15 AM EDT Appointment [facility] Xray [address] [place] [phone] Health Maintenance Due Date Last Done Comments HPV Vaccines (2 - 3-dose series) 11/20/2017 10/23/2017 Influenza Vaccine (#1) 2025 , 03/19/2024, 05/21/2023, Additional history exists Social Influencers of Health Screening 02/12/2026 02/12/2025 Cervical Cancer Screening: Pap Smear 06/25/2026 06/25/2023 Cholesterol Screening (Lipid Panel) 01/29/2030 01/29/2025 DTaP,Tdap,and Td Vaccines (4 - Td or Tdap) 10/07/2031 10/06/2021, 02/09/2017, 06/18/2012 RSV Immunization Adult Patients (1 - 1-dose 75+ series) 2069 Hepatitis A Vaccines Aged Out 07/16/2015 No [...] complete this topic Depression Screening Completed 07/28/2024 Hepatitis C Screening Completed 01/29/2025 HIB Vaccines Aged Out No longer eligi [...] Associated Diagnosis Comments CBC WITH AUTO DIFFERENTIAL Routine 02/13/2025 6:29 AM EDT CBC AND DIFFERENTIAL Routine 02/13/2025 6:29 AM EDT BASIC METABOLIC PANEL Routine 02/13/2025 6:29 AM EDT MAGNESIUM Routine 02/13/2025 6:29 AM EDT PHOSPHORUS Routine 02/13/2025 6:29 AM EDT OXYGEN THERAPY, ADULT Routine 02/12/2025 11:54 AM EDT TH AN ENDOTRACHEAL(NO CHARGE) Routine 02/12/2025 9:33 AM EDT NV UNLISTED PROCEDURE LAPAROSCOPIC STOMACH 02/12/2025 9:17 AM EDT Gastroparesis Hiatal hernia with GERD NV LAPAROSCOPY SURG REPAIR PARAESOPHAGEAL HERNIA INCL FUNDOPLASTY WO MESH 02/12/2025 9:17 AM EDT Gastroparesis Hiatal hernia with GERD POC PREGANCY, URINE SCREENING Routine 02/12/2025 7:42 AM EDT CBC WITH AUTO DIFFERENTIAL Routine 01/29/2025 9:19 AM EDT Annual physical exam Encounter for screening for cardiovascular disorders Need for hepatitis C screening test HEPATITIS C ANTIBODY Routine 01/29/2025 9:19 AM EDT Need for hepatitis C screening test HEMOGLOBIN A1C Routine 01/29/2025 9:19 AM EDT Annual physical exam Encounter for screening for cardiovascular disorders Need for hepatitis C screening test CBC AND DIFFERENTIAL Routine 01/29/2025 9:19 AM EDT Annual physical exam Encounter for screening for cardiovascular disorders Need for hepatitis C screening test THYROID STIMULATING HORMONE WITH REFLEX TO FREE T4 AND FREE T3 Routine 01/29/2025 9:19 AM EDT Annual physical exam Encounter for screening for cardiovascular disorders Need for hepatitis C screening test LIPID PANEL WITH REFLEX TO DIRECT LDL Routine 01/29/2025 9:19 AM EDT Encounter for screening for cardiovascular disorders COMPREHENSIVE METABOLIC PANEL Routine 01/29/2025 9:19 AM EDT Annual physical exam Encounter for screening for cardiovascular disorders Need for hepatitis C screening test CBC WITH AUTO DIFFERENTIAL Routine 01/26/2025 9:04 AM EDT Gastroparesis Hiatal hernia with GERD CBC AND DIFFERENTIAL Routine 01/26/2025 9:04 AM EDT Gastroparesis Hiatal hernia with GERD COMPREHENSIVE METABOLIC PANEL Routine 01/26/2025 9:04 AM EDT Gastroparesis Hiatal hernia with GERD PROTHROMBIN TIME WITH INR Routine 01/26/2025 9:04 AM EDT Gastroparesis Hiatal hernia with GERD TYPE AND SCREEN Routine 01/26/2025 9:04 AM EDT Gastroparesis Hiatal hernia with GERD from Last 3 Months Results * (ABNORMAL) CBC auto differential (02/13/2025 6:29 AM EDT) Only the most recent of3 resultswithin the time period is included. WBC 12.8(H) 4.8 - 10.8 K/mcL LAB HEMETOLOGY METHOD 02/13/2025 7:32 AM [facility] RBC 4.50 3.80 - 4.80 M/mcL LAB HEMETOLOGY METHOD 02/13/2025 7:32 AM [facility] Hemoglobin 13.0 11.5 - 16.0 g/dL LAB HEMETOLOGY METHOD 02/13/2025 7:32 AM [facility] Hematocrit 39.7 35.0 - 47.0 % LAB HEMETOLOGY METHOD 02/13/2025 7:32 AM [facility] MCV 88.4 79.0 - 98.0 FL LAB HEMETOLOGY METHOD 02/13/2025 7:32 AM [facility] MCH 29.0 27.0 - 32.0 pcg LAB HEMETOLOGY METHOD 02/13/2025 7:32 AM [facility] MCHC 32.7 32.0 - 37.0 g/dL LAB HEMETOLOGY METHOD 02/13/2025 7:32 AM [facility] RDW 12.8 11.0 - 15.0 % LAB HEMETOLOGY METHOD 02/13/2025 7:32 AM [facility] Platelets 234 130 - 400 K/mcL LAB HEMETOLOGY METHOD 02/13/2025 7:32 AM [facility] MPV 10.8 7.0 - 11.0 FL LAB HEMETOLOGY METHOD 02/13/2025 7:32 AM [facility] NRBC 0.0 <1.0 % LAB HEMETOLOGY METHOD 02/13/2025 7:32 AM [facility] NRBC Absolute 0.00 <0.10 K/mcL LAB HEMETOLOGY METHOD 02/13/2025 7:32 AM [facility] Neutrophils Relative 79.5 % LAB HEMETOLOGY METHOD 02/13/2025 7:32 AM [facility] Lymphocytes Relative 11.9 % LAB HEMETOLOGY METHOD 02/13/2025 7:32 AM [facility] Monocytes Relative 6.7 % LAB HEMETOLOGY METHOD 02/13/2025 7:32 AM [facility] Eosinophils Relative 0.9 % LAB HEMETOLOGY METHOD 02/13/2025 7:32 AM [facility] Basophils Relative 0.3 % LAB HEMETOLOGY METHOD 02/13/2025 7:32 AM [facility] Immature Granulocytes Relative 0.7 % LAB HEMETOLOGY METHOD 02/13/2025 7:32 AM [facility] Neutrophils Absolute 10.16(H) 1.50 - 7.00 K/mcL LAB HEMETOLOGY METHOD 02/13/2025 7:32 AM [facility] Lymphocytes Absolute 1.52 1.00 - 5.00 K/mcL LAB HEMETOLOGY METHOD 02/13/2025 7:32 AM [facility] Monocytes Absolute 0.85 0.20 - 1.00 K/mcL LAB HEMETOLOGY METHOD 02/13/2025 7:32 AM [facility] Eosinophils Absolute 0.12 0.00 - 0.50 K/mcL LAB HEMETOLOGY METHOD 02/13/2025 7:32 AM [facility] Basophils Absolute 0.04 0.00 - 0.20 K/mcL LAB HEMETOLOGY METHOD 02/13/2025 7:32 AM [facility] Immature Granulocytes Absolute 0.09(H) 0.00 - 0.03 K/mcL LAB HEMETOLOGY METHOD 02/13/2025 7:32 AM [facility] Blood Venous blood specimen / Unknown Venipuncture / Unknown 02/13/2025 6:29 AM EDT 02/13/2025 6:53 AM EDT Eliana FOX LAB BLOOD ORDERABLES Fin al Result Performing Organization Address [facility] Co de Phone Number [facility] [address] [place] [address], [place] [phone] * Phosphorus (02/13/2025 6:29 AM EDT) [facility] Phosphorus 3.2 2.5 - 4.5 mg/dL LAB CHEMISTRY METHOD 02/13/2025 7:42 AM EDT [facility] Blood Venous blood specimen / Unknown Venipuncture / Unknown 02/13/2025 6:29 AM EDT 02/13/2025 6:53 AM EDT Eliana FOX LAB BLOOD ORDERABLES Fin al Result Performing Organization Address [facility] de Phone Number [facility] [address] [place] [address], [place] [phone] * Magnesium (02/13/2025 6:29 AM EDT) [facility] Magnesium 2.1 1.9 - 2.6 mg/dL LAB CHEMISTRY METHOD 02/13/2025 7:42 AM EDT [facility] Blood Venous blood specimen / Unknown Venipuncture / Unknown 02/13/2025 6:29 AM EDT 02/13/2025 6:53 AM EDT Eliana FOX LAB BLOOD ORDERABLES Fin al Result Performing Organization Address [facility]/ZIP Co de Phone Number [facility] [address] [place] [address], [place] [phone] * Basic metabolic panel (02/13/2025 6:29 AM EDT) [facility] Sodium 138 133 - 145 mmol/L LAB CHEMISTRY METHOD 02/13/2025 7:44 AM [facility] Potassium 4.0 3.5 - 5.5 mmol/L LAB CHEMISTRY METHOD 02/13/2025 7:44 AM [facility] Chloride 105 96 - 110 mmol/L LAB CHEMISTRY METHOD 02/13/2025 7:44 AM [facility] CO2 27 21 - 32 mmol/L LAB CHEMISTRY METHOD 02/13/2025 7:44 AM [facility] Anion Gap 6 3 - 11 LAB CHEMISTRY METHOD 02/13/2025 7:44 AM [facility] Glucose 95 70 - 100 mg/dL LAB CHEMISTRY METHOD 02/13/2025 7:44 AM [facility] BUN 8 5 - 25 mg/dL LAB CHEMISTRY METHOD 02/13/2025 7:44 AM [facility] Creatinine 0.73 0.50 - 1.10 mg/dL LAB CHEMISTRY METHOD 02/13/2025 7:44 AM [facility] eGFR 114 >=60 mL/min/1. 73m2 LAB CHEMISTRY METHOD 02/13/2025 7:44 AM [facility] Comment:Calculation based on the Chronic Kidney Disease Epidemiology Collaboration (CKD-EPI) equation refit without adjustment for race. BUN/Creatinine Ratio 11.0 LAB CHEMISTRY METHOD 02/13/2025 7:44 AM [facility] Calcium 9.3 8.5 - 10.5 mg/dL LAB CHEMISTRY METHOD 02/13/2025 7:44 AM [facility] Blood Venous blood specimen / Unknown Venipuncture / Unknown 02/13/2025 6:29 AM EDT 02/13/2025 6:53 AM EDT us Eliana FOX LAB BLOOD ORDERABLES Fin al Result [facility] [address] [place] [address], [place] [phone] * TH AN ENDOTRACHEAL(NO CHARGE) (02/12/2025 9:33 AM EDT) Sheldon Rowley CRNA - 02/12/2025 9:33 AM EDT Sheldon Bullock CRNA 02/12/2025 9:34 AM General Information and Staff Patient location during procedure: OR Resident/WELL POINT PUMPING SUPERVISOR: Sheldon Bullock CRNA Performed: resident/WELL POINT PUMPING SUPERVISOR/CAA Performed by: Sheldon Bullock CRNA Authorized by: Ramírez Garrido DO Intubation Airway not difficult Urgency: elective Final Airway Details Successful airway: ETT Cuffed: yes Successful intubation technique: direct laryngoscopy Facilitating devices/methods: cricoid pressure Endotracheal tube insertion site: oral Blade: Thaddeus Blade size: #3 ETT size (mm): 7.5 Cormack-Lehane Classification: grade IIa - partial view of glottis Placement verified by: chest auscultation, capnometry and palpation of cuff Measured from: gums ETT to gums (cm): 21 Number of attempts at approach: 1 Ventilation between attempts: none Number of other approaches attempted: 0Final airway type: endotracheal airway Indications and Patient Condition Indications for airway management: anesthesia Spontaneous Ventilation: absent Sedation level: Yes Preoxygenated: yes Soft Tissue Damage: No Dentition Unchanged: Yes Patient position: neutral MILS maintained throughout Mask difficulty assessment: 0 - not attempted Ramírez Garrido DO ANESTHESIA ORDERABLES Final Result * POC , urine NO CHARGE screening manually resulted (02/12/2025 7:42 AM EDT) HCG, Ur POC Negative Negative POC hCG Int QC Pass? Yes Yes Urine Urine specimen obtained by clean catch procedure / Unknown 02/12/2025 7:42 AM EDT Marlin Pathak MD POINT OF CARE TEST ENTE R/EDIT ORDERABLES Final Result * Hepatitis C antibody (01/29/2025 9:19 AM EDT) Pathologist [facility] Hepatitis C Antibody Negative Negative LAB CHEMISTRY METHOD 01/29/2025 2:21 PM EDT [facility] Blood Venous blood specimen / Unknown Venipuncture / Unknown 01/29/2025 9:19 AM EDT 01/29/2025 10:38 AM EDT Enedelia Nguyen SURGICAL CLINICAL REVIEWER LAB BLOOD ORDERABLES Final R esult Performing Organization Address [facility]/ZIP Co de Phone Number [facility] [address] [place] [address], [place] [phone] * Thyroid stimulating hormone with reflex to free t4 and free t3 (01/29/2025 9:19 AM EDT) [facility] TSH 1.20 0.40 - 4.00 mcIU/mL LAB CHEMISTRY METHOD 01/29/2025 3:00 PM EDT [facility] Blood Venous blood specimen / Unknown Venipuncture / Unknown 01/29/2025 9:19 AM EDT 01/29/2025 10:38 AM EDT Enedelia Nguyen SURGICAL CLINICAL REVIEWER LAB BLOOD ORDERABLES Final R esult Performing Organization Address [facility] de Phone Number [facility] [address] [place] [address], [place] [phone] * (ABNORMAL) Lipid panel with reflex to direct LDL (01/29/2025 9:19 AM EDT) [facility] Cholesterol 254(H) 0 - 200 mg/dL LAB CHEMISTRY METHOD 01/29/2025 12:20 PM EDT [facility] Triglycerides 232(H) 0 - 150 mg/dL LAB CHEMISTRY METHOD 01/29/2025 12:20 PM EDT [facility] HDL 38(L) >=40 mg/dL LAB CHEMISTRY METHOD 01/29/2025 12:20 PM EDT [facility] LDL Calculated 170(H) 0 - 100 mg/dL LAB CHEMISTRY METHOD 01/29/2025 12:20 PM EDT [facility] Comment:Estimated LDL Calcul ated using equation: Total cholesterol - HDL cholesterol - (Triglycerides/5) VLDL Cholesterol Haresh 46.4 mg/dL LAB CHEMISTRY METHOD 01/29/2025 12:20 PM EDT [facility] Non HDL Chol. (LDL+VLDL) 216(H) <145 mg/dL LAB CHEMISTRY METHOD 01/29/2025 12:20 PM EDT [facility] Chol/HDL Ratio 6.7(H) 0.0 - 4.4 LAB CHEMISTRY METHOD 01/29/2025 12:20 PM EDT [facility] Blood Venous blood specimen / Unknown Venipuncture / Unknown 01/29/2025 9:19 AM EDT 01/29/2025 10:38 AM EDT Enedelia Nguyen SURGICAL CLINICAL REVIEWER LAB BLOOD ORDERABLES Final R esult [facility] [address] [place] [address], [place] [phone] * Hemoglobin A1c (01/29/2025 9:19 AM EDT) Hemoglobin A1C 5.2 <6.5 % LAB CHEMISTRY METHOD 01/29/2025 12:30 PM EDT [facility] Mean Bld Glu Estim. 103 mg/dL LAB CHEMISTRY METHOD 01/29/2025 12:30 PM EDT [facility] Blood Venous blood specimen / Unknown Venipuncture / Unknown 01/29/2025 9:19 AM EDT 01/29/2025 10:38 AM EDT Enedelia Nguyen SURGICAL CLINICAL REVIEWER LAB BLOOD ORDERABLES Final R esult [facility] [address] [place] [address], [place] [phone] * Comprehensive metabolic panel (01/29/2025 9:19 AM EDT) Only the most recent of2 resultswithin the time period is included. Sodium 137 133 - 145 mmol/L LAB CHEMISTRY METHOD 01/29/2025 12:20 PM [facility] Potassium 4.3 3.5 - 5.5 mmol/L LAB CHEMISTRY METHOD 01/29/2025 12:20 PM [facility] Chloride 105 96 - 110 mmol/L LAB CHEMISTRY METHOD 01/29/2025 12:20 PM [facility] CO2 27 21 - 32 mmol/L LAB CHEMISTRY METHOD 01/29/2025 12:20 PM [facility] Anion Gap 5 3 - 11 LAB CHEMISTRY METHOD 01/29/2025 12:20 PM [facility] Glucose 83 70 - 100 mg/dL LAB CHEMISTRY METHOD 01/29/2025 12:20 PM [facility] BUN 10 5 - 25 mg/dL LAB CHEMISTRY METHOD 01/29/2025 12:20 PM [facility] Creatinine 0.66 0.50 - 1.10 mg/dL LAB CHEMISTRY METHOD 01/29/2025 12:20 PM [facility] eGFR 121 >=60 mL/min/1. 73m2 LAB CHEMISTRY METHOD 01/29/2025 12:20 PM [facility] Comment:Calculation based on the Chronic Kidney Disease Epidemiology Collaboration (CKD-EPI) equation refit without adjustment for race. BUN/Creatinine Ratio 15.2 LAB CHEMISTRY METHOD 01/29/2025 12:20 PM [facility] Calcium 9.0 8.5 - 10.5 mg/dL LAB CHEMISTRY METHOD 01/29/2025 12:20 PM [facility] AST (SGOT) 13 10 - 42 unit/L LAB CHEMISTRY METHOD 01/29/2025 12:20 PM EDT [facility] ALT (SGPT) 23 10 - 60 unit/L LAB CHEMISTRY METHOD 01/29/2025 12:20 PM EDT [facility] Alkaline Phosphatase 89 42 - 121 unit/L LAB CHEMISTRY METHOD 01/29/2025 12:20 PM EDT [facility] Total Protein 7.3 6.0 - 8.0 g/dL LAB CHEMISTRY METHOD 01/29/2025 12:20 PM EDT [facility] Albumin 3.9 3.2 - 5.0 g/dL LAB CHEMISTRY METHOD 01/29/2025 12:20 PM EDT [facility] Total Bilirubin 0.5 0.0 - 1.4 mg/dL LAB CHEMISTRY METHOD 01/29/2025 12:20 PM EDT [facility] Blood Venous blood specimen / Unknown Venipuncture / Unknown 01/29/2025 9:19 AM EDT 01/29/2025 10:38 AM EDT Enedelia Nguyen NP LAB BLOOD ORDERABLES Final R esult Performing Organization Address City/State/[facility] Co de Phone Number [facility] [address] [place] [address], [place] [phone] * Prothrombin time with INR (01/26/2025 9:04 AM EDT) Protime 11.4 10.6 - 13.9 sec LAB COAGULATION METHOD 01/26/2025 9:39 AM EDT [facility] INR 0.9 LAB COAGULATION METHOD 01/26/2025 9:39 AM EDT [facility] Blood Venous blood specimen / Unknown Venipuncture / Unknown 01/26/2025 9:04 AM EDT 01/26/2025 9:23 AM EDT Marlin Pathak MD LAB BLOOD ORDERABLES Fi nal Result [facility] [address] [place] [address], [place] [phone] * Type and screen (01/26/2025 9:04 AM EDT) ABO Group O 01/26/2025 10:04 AM EDT [facility] Rh Type Positive 01/26/2025 10:04 AM EDT [facility] Antibody Screen Negative 01/26/2025 10:04 AM EDT [facility] Blood Venous blood specimen / Unknown Venipuncture / Unknown 01/26/2025 9:04 AM EDT 01/26/2025 9:23 AM EDT Marlin Pathak MD LAB BLOOD BANK TEST ORD ERABLES Final Result [facility] [address] [place] [address], [place] [phone] from Last 3 Months Insurance [employer] Advance Directives * Full Code - Default (Latest Code Status on File) Date Activated Date Inactivated Comments 02/12/2025 7:40 AM 02/13/2025 7:03 PM This is orde r is used when code status has not been discussed with the patient, or code status is otherwise unknown/unconfirmed To update the patient's code status, place a code status order. Do not modify or discontinue any currently active code status orders. Care Teams Extrusion Press Adjuster Relationship Specialty Start Date End Date Joseph French MD [address] [place] [address] Dr Fredis [place] PCP - General Family Medicine 09/25/24
--- OUTSIDE RECORDS SUMMARY | 2025-03-11 07:30 | XMS_ITS | Patient Health Record ---
Author Organization [facility] [address] Address [address] [place] [address] Care Team Providers Care Yard Jockey Name Role Phone JAC DUMONT Unavailable [phone] Reason For Referral No Information Encounters Encounter Location Date Provider Diagnosis [facility] [phone] [address] 06/19/2024 JAC DUMONT Plan Of Treatment No Information Insurance Providers Payer Name Payer Address Payer Phone Subscriber Number Group Number Insured Name Patient Relationship to Insured Coverage Start Date Coverage End Date [employer] [address] [address] [place] [address] [id number] Latasha Cole Self - patient is the insured
== END 2025-03-11 07:28 | disposition home or self-care (01) ==
LOC: HO.XRAY 07:27
PROVIDERS: PCP Internal Medicine; Visit Provider Nurse Practitioner Family
DX: M54.2 Cervicalgia (principal)
CPT/HCPCS: 72052

== ENCOUNTER → 2025-03-11 07:31 | Outpatient (BNV) | payer OTHER, SELFPAY | PROVIDERS: PCP Internal Medicine; Visit Provider Radiology Diagnostic Radiology | DX: M53.2X2 Spinal instabilities, cervical region (principal) | CPT/HCPCS: 72052 ==

== ENCOUNTER 2025-04-07 07:46 | Outpatient (AMB) | payer OTHER, SELFPAY ==
--- OUTSIDE RECORDS SUMMARY | 2024-06-19 04:30 | XMS_ITS ---
Author Organization [facility] [address] Address [address] [place] [address] Care Team Providers Care Education And Development Manager Name Role Phone JAC DUMONT Unavailable [phone] Encounters Encounter Location Date Provider Diagnosis [facility] [address] [place] [address] [place] [phone] 06/19/2024 JAC DUMONT Plan Of Treatment No Information Progress Notes * Yola GUERRAOB: [birth year] (30 yo F)Acc No.[id number]:06/19/2024 Progress Notes Patient: Latasha URIBE Provider: Giles DUMONT PA-C :1995 A ge:29 Y S ex:Female Date:06/19/2024 Address:[address] [place], [place] [phone] Subjective: * Chief Complaints: * * Medical History: Objective: * Vitals: Assessment: Plan: * Treatment: * Procedure Codes: 9 9199 NO SHOW OFFICE VISIT * Images: Billing Information: * Visit Code: * Procedure Codes: 73518 NO SHOW OFFICE VISIT. * Electronic signature of BROOK DUMONT PA-C on 04/07/2025 at 07:54 AM EDT Sign off status: Pending * Provider: Giles DUMONT PA-C Date: 0 06/19/2024 Generated for Valentine leon/Samantha/eTaurora on: 07:54 AM EDT
--- OUTSIDE RECORDS SUMMARY | 2025-04-07 07:54 | XMS_ITS | Patient Health Record ---
Author Organization [facility] [address] Address [address] [place] [address] Care Team Providers Care Vinyl Installer Name Role Phone JAC DUMONT Unavailable [phone] Reason For Referral No Information Encounters Encounter Location Date Provider Diagnosis [facility] [address] [address] 06/19/2024 JAC DUMONT Plan Of Treatment No Information Insurance Providers Payer Name Payer Address Payer Phone Subscriber Number Group Number Insured Name Patient Relationship to Insured Coverage Start Date Coverage End Date [employer] [address] [address] [place] [address] [id number] Latasha Cole Self - patient is the insured
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
[2025-04-07 08:05] VITALS: BP 115/80; PULSE 93; O2SAT 100; BMI 30.8
== END 2025-04-07 08:57 | disposition home or self-care (01) ==
LOC: HO.RHES 07:47
PROVIDERS: PCP Family Medicine; Visit Provider Student in an Organized Health Care Education/Training Program
DX: L40.50 Arthropathic psoriasis, unspecified (principal); M79.7 Fibromyalgia; Z51.81 Encounter for therapeutic drug level monitoring; Z79.631 Long term (current) use of antimetabolite agent
CPT/HCPCS: 99215; G2211

== ENCOUNTER 2025-05-11 08:41 | Outpatient (AMB) | payer OTHER, SELFPAY ==
--- OUTSIDE RECORDS SUMMARY | 2024-06-19 03:30 | XMS_ITS ---
Author Organization [facility] [address] Address [address] [place] [address] Care Team Providers Care Tree Trimmer Helper Name Role Phone JAC DUMONT Unavailable [phone] Encounters Encounter Location Date Provider Diagnosis [facility] [address] [place] [address] [place] [phone] 06/19/2024 JAC DUMONT Plan Of Treatment No Information Progress Notes * Yola GUERRAOB: [birth year] (30 yo F)Acc No.[id number]:06/19/2024 Progress Notes Patient: Latasha Maddox Provider: Giles DUMONT PA-C :1995 A ge:29 Y S ex:Female Date:06/19/2024 Address:[address] [place], [place] [id number] Plan: * Procedure Codes: 9 9199 NO SHOW OFFICE VISIT Billing Information: * Procedure Codes: 49765 NO SHOW OFFICE VISIT. * Electronic signature of BROOK DUMONT PA-C on 05/11/2025 at 09:10 AM EST Sign off status: Pending * Provider: Giles DUMONT PA-C Date: 0 06/19/2024 Generated for Valentine leon/Samantha/eTmirtaitting on: 07/11/2024 09:10 AM EST
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
[2025-05-11 09:07] VITALS: BP 128/71
--- OUTSIDE RECORDS SUMMARY | 2025-05-11 09:10 | XMS_ITS | Clinical Summary ---
Author Organization [facility] Address [address] [place] [address] Phone Care Team Providers Care Sox Analyst Name Role Phone Joseph French MD Primary Care Provider Allergies Active Allergy Reactions Criticality Noted Date Comments Banana Itching,Swelling,Hea dac he,Runny nose Low 06/17/2024 Chocolate Anaphylaxis,Headache ,Hi ves High 06/17/2024 Chocolate Flavor Anaphylaxis High 05/20/2021 Codeine Palpitations Low 06/17/2024 States childhood Codeine Palpitations 09/09/2024 Covid-19 Vac, Bv (Pfizer)(Pf) Anaphylaxis High 06/17/2024 Covid-19 Vacc,Mrna([employer])(Pf ) Anaphylaxis High 05/20/2021 Covid-19 Vaccine, Ad26.Cov2.S ([employer]) Anaphylaxis High 06/17/2024 Gluten Protein GI intolerance [...] times a day. Prescribe By Psych at [facility] Active melatonin 10 mg disintegrating tablet Take 1 tablet (10 mg total) by mouth at bedtime. Buy OT Active midodrine (PROAMATINE) 2.5 mg tablet Take 1 tablet (2.5 mg total) by mouth 1 (one) time each day if needed. Prescribed by cardiology [facility] Active ondansetron (Zofran) 4 mg tablet Take 1 tablet (4 mg total) by mouth every 6 (six) hours if needed for nausea. Prescribed by GI at [facility] Active ubrogepant (Ubrelvy) 100 mg tablet Take [...] (PEPCID) 40 mg tablet Take by mouth. Active cetirizine (ZyrTEC) 10 mg tablet Take 1 [...] 20 mg 10 tablet 02/18/20 25 Active methotrexate 2.5 mg tablet Take 1 tablet (2.5 mg total) by mouth 1 (one) time per week 04/07/20 25 Active azithromycin (ZITHROMAX) 500 mg tablet 09/06/19 25 Active folic acid (FOLVITE) 1 mg tablet 04/07/20 25 Active pyridoxine (B-6) 50 mg tablet Take 1 tablet (50 mg total) by mouth daily. Buy OTC 2024 Discontinued Active Problems Problem Noted Date Diagnosed Date Cervical spondylosis with radiculopathy 05/01/20 25 Assessment & Plan (05/01/2025 3:52 PM EST): Ms. Guerra describes neck pain that goes across the shoulder blades with some numbness and tingling down the arms to the hands. This has been going on for many months. She had some x-rays of the cervical spine obtained at [facility] on March 11, 2025. The report describes 2 mm of retrolisthesis at C3-4 and C4-5 during extension which reduced in neutral position unfortunately, the films were not available for review. At any rate, she would like to begin with conservative measures and I think that that is appropriate. I gave her a prescription for physical therapy including cervical traction. If she is still having trouble at the end of therapy, she should return and I can order an MRI at that time. I let her know that I would call her once I had the opportunity to review her films. She was in agreement with the plan. Chronic migraine without aura 12/08/2024 Overview (12/08/2024): [...] tachycardia syndrome) 08/04/2024 Overview (08/04/2024): Cardiology at [facility], Dr. Escobar Assessment & Plan (08/04/2024 7:15 PM EST): Patient is followed by cardiology at [facility]. She is to continue follow-up as recommended. 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 She is to continue follow-up as recommended. ADHD (attention deficit hyperactivity disorder) Anxiety Depression Fibromyalgia Headache Joint pain Psoriatic arthritis ([facility] V24, CMS/HCC V28) PTSD (post-traumatic stress disorder) Vitamin D deficiency Resolved Problems Problem Noted Date Diagnosed Date Resolved Date Hiatal hernia with GERD 12/08/2024 08/2 02/2025 Encounters Date Type Department Care Team Description 05/01/2025 2:30 PM EST Consult Neurosurgery [address] [place] [address] Joseph Hernandez PA Cervical spondylosis with radiculopathy (Primary Dx) 04/20/2025 9:30 AM EST Office Visit Bariatric Surgery [address] [phone] Marlin Pathak MD S/P Aniyah fundoplication (with gastrostomy tube placement) (CMS/HCC V24, CMS/HCC V28) (Primary Dx) 03/16/2025 9:00 AM EDT Office Visit Bariatric Surgery [address] [phone] Marlin Pathak MD S/P Aniyah fundoplication (with gastrostomy tube placement) (CMS/HCC V24, CMS/HCC V28) (Primary Dx); Food intolerance 03/02/2025 11:45 AM EDT Office Visit Bariatric Surgery [address] [address] Marlin Pathak MD S/P Aniyah fundoplication (with gastrostomy tube placement) (CMS/HCC V24, CMS/HCC V28) (Primary Dx); Food intolerance 02/17/2025 Telephone Bariatric Surgery [address] [phone] Marlin Pathak MD 02/12/2025 9:17 AM EDT Anesthesia Event [facility] Main OR [address] [place] [phone] Ramírez Garrido DO 02/12/2025 9:00 AM EDT - 02/12/2025 1:30 PM EDT Surgery [facility] Main OR [address] [place] [phone] Marlin Pathak MD DAVINCI HIATAL HERNIA REPAIR WITH FUNDOPLICATION [44622 (CPT )] 02/12/2025 7:17 AM EDT - 02/13/2025 4:58 PM EDT Hospital Encounter [facility] Surgical Unit [address] [place] [address] Marlin Pathak MD Discharge Disposition: Home or Self Care from Last 3 Months Immunizations Immunization Administration Dates Next Due Influenza trivalent, MDCK, [...] Packs/Day Years Used Date Smoking Tobacco: Never Passive Smoke Exposure: Never Smokeless Tobacco: Never Tobacco Cessation:Counseling Given: [...] for your loved ones. For example, child development consultant or elderly care for an older [...] Date Recorded What is your living situation? Unrecognized valu e 06/16/2024 Interpersonal Safety Answer Date Record ed Physical Abuse Unrecognized value 02/12/2025 Verbal Abuse Unrecognized value 02/12/2025 Comments No Sex and Gender Information Value Date Recorded Sex Assigned at Female 09/09/2024 9:57 AM EDT Legal Sex Female 2:28 PM EST Gender Identity Female 09/09/2024 9:57 AM EDT Sexual Orientation Straight 09/09/2024 9: 57 AM EDT Obstetrics History Last Filed Vital Signs Vital Sign Reading Time Taken Comments Blood Pressure 122/80 04/20/2025 9:19 AM EST Pulse 99 04/20/2025 9:19 AM EST Temperature 36.8 C (98.3 F) 04/20/2025 9:19 AM EST Respiratory Rate 15 02/13/2025 2:54 PM EDT Oxygen Saturation 98% 02/13/2025 2:54 PM EDT Inhaled Oxygen Concentration - - Weight 70.3 kg (155 lb) 05/01/2025 2:38 PM EST Height 154.9 cm (5' 1 ) 05/01/2025 2:38 PM EST Body Mass Index 29.29 05/01/2025 2:38 PM EST Plan of Treatment Upcoming Encounters Date Type Department Care Team (Late Contact Info) Description 06/22/2025 9:45 AM EST Office Visit Bariatric Surgery - [place] [address] [place] [address] Marlin Pathak MD [address] [place] [address] 08/07/2025 11:30 AM EST Office Visit Adult Medicine [facility] [address] [place] [address] Jett Perez MD [address] [place] [address] Health Maintenance Due Date Last Done Comments [...] Hiatal hernia with GERD POC PREGANCY, URINE NO CHARGE SCREENING MANUALLY RESULTED Routine 02/12/2025 7:42 AM EDT HEPATITIS C ANTIBODY Routine 01/29/2025 9:19 AM EDT Need for hepatitis C screening test LIPID PANEL WITH REFLEX TO DIRECT LDL Routine 01/29/2025 9:19 AM EDT Encounter for screening for cardiovascular disorders from Last 3 Months or Most Recently Relevant to Health Maintenance Results * (ABNORMAL) CBC auto differential (02/13/2025 6:29 AM EDT) WBC 12.8(H) 4.8 - 10.8 K/mcL LAB [facility] RBC 4.50 3.80 - 4.80 M/mcL LAB HEMETOLOGY METHOD 02/13/2025 7:32 AM EDT [facility] Hemoglobin 13.0 11.5 - 16.0 g/dL LAB HEMETOLOGY METHOD 02/13/2025 7:32 AM [facility] Hematocrit 39.7 35.0 - 47.0 % LAB HEMETOLOGY METHOD 02/13/2025 7:32 AM [facility] MCV 88.4 79.0 - 98.0 FL LAB HEMETOLOGY METHOD 02/13[facility]25 [facility] MCH 29.0 27.0 - 32.0 pcg LAB HEMETOLOGY METHOD 02/13/2025 7:32 AM [facility] MCHC 32.7 32.0 - 37.0 g/dL LAB HEMETOLOGY METHOD 02/13/2025 7:32 AM [facility] RDW 12.8 11.0 - 15.0 % LAB HEMETOLOGY METHOD 02/13/2025 7:32 AM [facility] Platelets 234 130 - 400 K/mcL LAB HEMETOLOGY METHOD 02/13/2025 7:32 AM [facility] MPV 10.8 7.0 - 11.0 FL LAB HEMETOLOGY METHOD [facility] NRBC 0.0 <1.0 % LAB HEMETOLOGY METHOD [facility] NRBC Absolute 0.00 <0.10 K/mcL LAB HEMETOLOGY METHOD 02/13/2025 7:32 AM EDT [facility] Neutrophils Relative 79.5 % LAB HEMETOLOGY METHOD 02/13/2025 7:32 AM [facility] Lymphocytes Relative 11.9 % LAB HEMETOLOGY METHOD 02/13/2025 7:32 AM [facility] Monocytes Relative 6.7 % LAB HEMETOLOGY METHOD 02/13/2025 7:32 AM [facility] Eosinophils Relative 0.9 % LAB HEMETOLOGY METHOD 02/13/2025 7:32 AM [facility] Basophils Relative 0.3 % LAB HEMETOLOGY METHOD 02/13/2025 7:32 AM [facility] Immature Granulocytes Relative 0.7 % LAB HEMETOLOGY METHOD 02/13/2025 7:32 AM [facility] Neutrophils Absolute 10.16(H) 1.50 - 7.00 K/mcL LAB HEMETOLOGY METHOD 02/13/2025 7:32 AM [facility] Lymphocytes Absolute 1.52 1.00 - 5.00 K/mcL LAB HEMETOLOGY METHOD 02/13/2025 7:32 AM [facility] Monocytes Absolute 0.85 0.20 - 1.00 K/mcL LAB HEMETOLOGY METHOD 02/13/2025 7:32 AM [facility] Eosinophils Absolute 0.12 0.00 - 0.50 K/mcL LAB HEMETOLOGY METHOD 02/13/2025 7:32 AM [facility] Basophils Absolute 0.04 0.00 - 0.20 K/mcL LAB HEMETOLOGY METHOD 02/13/2025 7:32 AM [facility] Immature Granulocytes Absolute 0.09(H) 0.00 - 0.03 K/mcL LAB HEMETOLOGY METHOD 02/13/2025 7:32 AM EDT [facility] Blood Venous blood specimen / Unknown Venipuncture / Unknown 02/13/2025 6:29 AM EDT 02/13/2025 6:53 AM EDT Eliana FOX LAB BLOOD ORDERABLES Fin al Result Performing Organization Address [facility]/ZIP Co de Phone Number [facility] [address] [place] [address], [place] [phone] * Phosphorus (02/13/2025 6:29 AM EDT) Phosphorus 3.2 2.5 - 4.5 mg/dL LAB CHEMISTRY METHOD 02/13/2025 7:42 AM EDT [facility] Blood Venous blood specimen / Unknown Venipuncture / Unknown 02/13/2025 6:29 AM EDT 02/13/2025 6:53 AM EDT Eliana FOX LAB BLOOD ORDERABLES Fin al Result Performing Organization Address [facility] de Phone Number [facility] [address] [place] [address], [place] [phone] * Magnesium (02/13/2025 6:29 AM EDT) Magnesium 2.1 1.9 - 2.6 mg/dL LAB CHEMISTRY METHOD 02/13/2025 7:42 AM EDT [facility] Blood Venous blood specimen / Unknown Venipuncture / Unknown 02/13/2025 6:29 AM EDT 02/13/2025 6:53 AM EDT Eliana FOX LAB BLOOD ORDERABLES Fin al Result Performing Organization Address City/[facility]/ZIP Co de Phone Number [facility] [address] [place] [address], * Basic metabolic panel (02/13/2025 6:29 AM EDT) Sodium 138 133 - 145 mmol/L LAB CHEMISTRY METHOD 02/13/2025 7:44 AM [facility] Potassium 4.0 3.5 - 5.5 mmol/L LAB CHEMISTRY METHOD 02/13/2025 7:44 AM [facility] Chloride 105 96 - 110 mmol/L LAB CHEMISTRY METHOD 02/13/2025 7:44 AM [facility] CO2 27 21 - 32 mmol/L LAB CHEMISTRY METHOD 02/13/2025 7:44 AM [facility] Anion Gap 6 3 - 11 LAB CHEMISTRY METHOD 02/13/2025 7:44 AM [facility] Glucose 95 70 - 100 mg/dL LAB CHEMISTRY METHOD 02/13/2025 7:44 AM [facility] BUN 8 5 - 25 mg/dL LAB CHEMISTRY METHOD 02/13/2025 7:44 AM [facility] Creatinine 0.73 0.50 - 1.10 mg/dL LAB CHEMISTRY METHOD 02/13/2025 7:44 AM [facility] eGFR 114 >=60 mL/min/1. 73m2 LAB CHEMISTRY METHOD 02/13/2025 7:44 AM [facility] Comment:Calculation based on the Chronic Kidney Disease Epidemiology Collaboration (CKD-EPI) equation refit without adjustment for race. BUN/Creatinine Ratio 11.0 LAB CHEMISTRY METHOD 02/13/2025 7:44 AM [facility] Calcium 9.3 8.5 - 10.5 mg/dL LAB CHEMISTRY METHOD 02/13/2025 7:44 AM [facility] Blood Venous blood specimen / Unknown Venipuncture / Unknown 02/13/2025 6:29 AM EDT 02/13/2025 6:53 AM EDT Eliana FOX LAB BLOOD ORDERABLES Fin al Result [facility] [address] [place] [address], [place] [phone] * TH AN ENDOTRACHEAL(NO CHARGE) (02/12/2025 9:33 AM EDT) Sheldon Rowley CRNA - 02/12/2025 9:33 AM EDT Sheldon Bullock CRNA 02/12/2025 9:34 AM General Information and Staff Patient location during procedure: OR Resident/PUTTYING AND CALKING SUPERVISOR: Sheldon Bullock CRNA Performed: resident/ASTRID/CAA Performed by: Sheldon Bullock CRNA Authorized by: [...] Hepatitis C antibody (01/29/2025 9:19 AM EDT) [facility] Hepatitis C Antibody Negative Negative LAB CHEMISTRY METHOD 01/29/2025 2:21 PM EDT [facility] Blood Venous blood specimen / Unknown Venipuncture / Unknown 01/29/2025 9:19 AM EDT 01/29/2025 10:38 AM EDT Enedelia Nguyen NP LAB BLOOD ORDERABLES Final R esult [facility] [address] [place] [address], [place] [phone] * (ABNORMAL) Lipid panel with reflex to direct LDL (01/29/2025 9:19 AM EDT) [facility] Cholesterol 254(H) 0 - 200 mg/dL LAB CHEMISTRY METHOD 01/29/2025 12:20 PM EDT [facility] Triglycerides 232(H) 0 - 150 mg/dL LAB CHEMISTRY METHOD 01/29/2025 12:20 PM [facility] HDL 38(L) >=40 mg/dL LAB CHEMISTRY METHOD 01/29/2025 12:20 PM [facility] LDL Calculated 170(H) 0 - 100 mg/dL LAB CHEMISTRY METHOD 01/29/2025 12:20 PM EDT [facility] Comment:Estimated LDL Calcul ated using equation: Total cholesterol - HDL cholesterol - (Triglycerides/5) VLDL Cholesterol Haresh 46.4 mg/dL LAB CHEMISTRY METHOD 01/29/2025 12:20 PM [facility] Non HDL Chol. (LDL+VLDL) 216(H) <145 mg/dL LAB CHEMISTRY METHOD 01/29/2025 12:20 PM [facility] Chol/HDL Ratio 6.7(H) 0.0 - 4.4 LAB CHEMISTRY METHOD 01/29/2025 12:20 PM EDT [facility] Blood Venous blood specimen / Unknown Venipuncture / Unknown 01/29/2025 9:19 AM EDT 01/29/2025 10:38 AM EDT us Enedelia Nguyen [employer] LAB BLOOD ORDERABLES Final R esult [facility] [address] [place] [address], [place] [phone] from Last 3 Months or Most Recently Relevant to Health Maintenance Insurance [employer] Advance Directives * Full [...] currently active code status orders. Care Teams Sox Analyst Relationship Specialty Start Date End Date Joseph French MD [address] [place] [address] Dr Fredis [place] PCP - General Family Medicine 09/25/24
--- OUTSIDE RECORDS SUMMARY | 2025-05-11 09:10 | XMS_ITS | Patient Health Record ---
Author Organization [facility] [address] Address [address] [place] [address] Care Team Providers Care Lab Instructor Name Role Phone JAC DUMONT Unavailable [phone] Reason For Referral No Information Encounters Encounter Location Date Provider Diagnosis [facility] [address] [address] 06/19/2024 JAC DUMONT Plan Of Treatment No Information Insurance Providers Payer Name Payer Address Payer Phone Subscriber Number Group Number Insured Name Patient Relationship to Insured Coverage Start Date Coverage End Date [employer] [address] [address] [place] [address] [id number] Latasha Cole Self - patient is the insured
== END 2025-05-11 10:01 | disposition home or self-care (01) ==
LOC: HO.HGI 08:42
PROVIDERS: PCP Family Medicine; Visit Provider Internal Medicine Gastroenterology
DX: K31.84 Gastroparesis (principal)
CPT/HCPCS: 99214

== ENCOUNTER 2025-05-27 13:52 | Outpatient (AMB) | payer OTHER, SELFPAY ==
--- OUTSIDE RECORDS SUMMARY | 2024-06-19 03:30 | XMS_ITS ---
Author Organization [facility] [address] Address [address] [place] [address] Care Team Providers Care Research Coordinator Name Role Phone JAC DUMONT Unavailable [phone] Encounters Encounter Location Date Provider Diagnosis [facility] [address] [place] [phone] 06/19/2024 JAC DUMONT Plan Of Treatment No Information Progress Notes * Yola GUERRAOB: [birth year] (30 yo F)Acc No.[id number]:06/19/2024 Progress Notes Patient: Latasha Maddox Provider: Giles DUMONT PA-C :1995 A ge:29 Y S ex:Female Date:06/19/2024 Address:[address] [place], [place] [id number] Plan: * Procedure Codes: 9 9199 NO SHOW OFFICE VISIT Billing Information: * Procedure Codes: 30562 NO SHOW OFFICE VISIT. * Electronic signature of BROOK DUMONT PA-C on 05/27/2025 at 09:35 PM EST Sign off status: Pending * Provider: Giles DUMONT PA-C Date: 0 06/19/2024 Generated for Valentine leon/Samantha/eTransmitting on: 1 07/28/2024 09:35 PM EST
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
[2025-05-27 13:59] VITALS: BP 112/68; BMI 28.9
--- OUTSIDE RECORDS SUMMARY | 2025-05-27 21:35 | XMS_ITS | Clinical Summary ---
Author Organization [facility] Address [address] [place] [address] Phone Care Team Providers Care Natural Resource Officer Name Role Phone Joseph French MD Primary Care Provider Allergies Active Allergy Reactions Criticality Noted Date Comments Banana Itching,Swelling,Hea dac he,Runny nose Low 06/17/2024 Chocolate Anaphylaxis,Headache ,Hi ves High 06/17/2024 Chocolate Flavor Anaphylaxis High 05/20/2021 Codeine Palpitations Low 06/17/2024 States childhood Codeine Palpitations 09/09/2024 Covid-19 Vac, Bv (Pfizer)(Pf) Anaphylaxis High 06/17/2024 Covid-19 Vacc,Mrna(Hackermeter)(Pf ) Anaphylaxis High 05/20/2021 Covid-19 Vaccine, Ad26.Cov2.S ([employer]) Anaphylaxis High 06/17/2024 Gluten Protein GI intolerance [...] times a day. Prescribe By Psych at [facility] Active melatonin 10 mg disintegrating tablet Take 1 tablet (10 mg total) by mouth at bedtime. Buy OT Active midodrine (PROAMATINE) 2.5 mg tablet Take 1 tablet (2.5 mg total) by mouth 1 (one) time each day if needed. Prescribed by cardiology [facility] Active ondansetron (Zofran) 4 mg tablet Take 1 tablet (4 mg total) by mouth every 6 (six) hours if needed for nausea. Prescribed by GI at [facility] Active ubrogepant (Ubrelvy) 100 mg tablet Take [...] if needed for anaphylaxis. 2 each 2 5 Active aprepitant (EMEND) 80 mg capsule Take 1 capsule (80 mg total) by mouth 1 (one) time each day. 5 Active Qulipta 60 mg tablet Use 60 mL in the mouth or throat 1 (one) time each day. 5 Active methylphenidate 18 mg ER tablet Take 27 mg by mouth 1 (one) time each day in the morning. 5 Active baclofen (LIORESAL) 10 mg tablet 1 [...] mouth every 8 (eight) hours. 30 tablet 5 Active docusate sodium (COLACE) 100 mg capsule Take 1 capsule (100 mg total) by mouth 1 (one) time each day. 7 each 5 Active oxyCODONE (ROXICODONE) 5 mg immediate release tablet Take 1 tablet (5 mg total) by mouth every 6 (six) hours if needed for severe pain. Max Daily Amount: 20 mg 10 tablet 5 Active methotrexate 2.5 mg tablet Take 1 tablet (2.5 mg total) by mouth 1 (one) time per week 5 Active azithromycin (ZITHROMAX) 500 mg tablet 5 Active folic acid (FOLVITE) 1 mg tablet 5 Active Active Problems Problem Noted Date Diagnosed Date Cervical spondylosis with radiculopathy 05/01/20 25 Assessment & Plan (05/01/2025 3:52 PM EST): Ms. Guerra describes neck pain that goes across the shoulder blades with some numbness and tingling down the arms to the hands. This has been going on for many months. She had some x-rays of the cervical spine obtained at [facility] on March 11, 2025. The report describes [...] tachycardia syndrome) 08/04/2024 Overview (08/04/2024): Cardiology at [facility], Dr. Escobar Assessment & Plan (08/04/2024 7:15 PM EST): Patient is followed by cardiology at [facility]. She is to continue follow-up as recommended. Gastroparesis 08/04/2024 Overview (08/04/2024): Followed By GI at [facility] Assessment & Plan (08/04/2024 7:15 PM EST): Patient is followed by manufacturing development engineer at [facility]. She is to continue follow-up as recommended. ADHD (attention deficit hyperactivity disorder) Anxiety Depression Fibromyalgia Headache Joint pain Psoriatic arthritis PTSD (post-traumatic stress disorder) Vitamin D deficiency Resolved Problems Problem Noted Date Diagnosed Date Resolved Date Hiatal hernia with GERD 12/08/2024 08/2 02/2025 Encounters Date Type Department Care Team Description 05/01/2025 2:30 PM EST Consult Neurosurgery [place] [address] [place] [phone] Joseph Hernandez PA Cervical spondylosis with radiculopathy (Primary Dx) 04/20/2025 9:30 AM EST Office Visit Bariatric Surgery - [address] [place] [phone] Marlin Pathak MD S/P Aniyha fundoplication (with gastrostomy tube placement) ([facility] V24, [facility] V28) (Primary Dx) 03/16/2025 9:00 AM EDT Office Visit Bariatric Surgery [address] [phone] Marlin Pathak MD S/P Aniyah fundoplication (with gastrostomy tube placement) ([facility] V24, [facility] V28) (Primary Dx); Food intolerance 03/02/2025 11:45 AM EDT Office Visit Bariatric Surgery [address] [phone] Marlin Pathak MD S/P Aniyah fundoplication (with gastrostomy tube placement) ([facility] V24, [facility] V28) (Primary Dx); Food intolerance from Last 3 Months Immunizations Immunization Administration [...] (attention deficit hyperactivity disorder) Headache Psoriatic arthritis ([facility] V24, [facility] V28) Fibromyalgia Vitamin D deficiency PTSD (post-traumatic [...] care for your loved ones. For example, children's ministries director or elderly care for an older adult? [...] Orientation Straight 09/09/2024 9: 57 AM EDT Last Filed Vital Signs Vital Sign Reading [...] Care Team (Late st Contact Info) Description 06/30/2025 9:45 AM EST Office Visit Bariatric Surgery - [address] [place] [address] Marlin Pathak MD [address] [place] [phone] 08/07/2025 11:30 AM EST Office Visit Adult Medicine [address] [phone] Jett Perez MD [address] [place] [id number] Health Maintenance Due Date Last Done Comments Drug Screen 1994 Non-Opioid Controlled Substance Agreement 1994 HPV Vaccines (2 - 3-dose series) 11/20/2017 [...] Procedure Name Priority Date/Time Associated Diagnosis Comments HEPATITIS C ANTIBODY Routine 01/29/2025 9:19 AM EDT Need for hepatitis C screening test LIPID PANEL WITH REFLEX TO DIRECT LDL Routine 01/29/2025 9:19 AM EDT Encounter for screening for cardiovascular disorders from Last 3 Months or Most Recently Relevant to Health Maintenance Results * Hepatitis C antibody (01/29/2025 9:19 AM EDT) Hepatitis C Antibody Negative Negative LAB CHEMISTRY METHOD 01/29/2025 2:21 PM EDT [facility] Blood Venous blood specimen / Unknown Venipuncture / Unknown 01/29/2025 9:19 AM EDT 01/29/2025 10:38 AM EDT us Enedelia Nguyen CARDING UTILITY TENDER LAB BLOOD ORDERABLES Final R esult [facility] [address] [place] [address], * (ABNORMAL) Lipid panel with reflex to direct LDL (01/29/2025 9:19 AM EDT) Cholesterol 254(H) 0 - 200 mg/dL LAB CHEMISTRY METHOD 01/29/2025 12:20 PM EDT [facility] Triglycerides 232(H) 0 - 150 mg/dL LAB CHEMISTRY METHOD 01/29/2025 12:20 PM [facility] HDL 38(L) >=40 mg/dL LAB CHE[facility]STR[facility] LDL Calculated 170(H) 0 - 100 mg/dL LAB CHEMISTRY METHOD 01/29/2025 12:20 PM T [facility] Comment:Estimated LDL Calcul ated using equation: Total cholesterol - HDL cholesterol - (Triglycerides/5) VLDL Cholesterol Haresh 46.4 mg/dL LAB CHEMISTRY METHOD 01/29/2025 12:20 PM T [facility] Non HDL Chol. (LDL+VLDL) 216(H) <145 mg/dL LAB CHEMISTRY METHOD 01/29/2025 12:20 PM T [facility] Chol/HDL Ratio 6.7(H) 0.0 - 4.4 LAB CHEMISTRY METHOD 01/29/2025 12:20 PM [facility] Blood Venous blood specimen / Unknown Venipuncture / Unknown 01/29/2025 9:19 AM EDT 01/29/2025 10:38 AM EDT us Enedelia Nguyen CARDING UTILITY TENDER LAB BLOOD ORDERABLES Final R esult BETTY MCRAE [place] ([facility] [address] [place] [address], [place] [phone] from Last 3 Months or Most Recently [...] currently active code status orders. Care Teams Natural Resource Officer Relationship Specialty Start Date End Date Joseph French MD [address] [place] [address] Dr Fredis [place] PCP - General Family Medicine 09/25/24
--- OUTSIDE RECORDS SUMMARY | 2025-05-27 21:35 | XMS_ITS | Patient Health Record ---
Author Organization [facility] Address [address] [place] [address] Care Team Providers Care Logistic Manager Name Role Phone JAC DUMONT Unavailable [phone] Reason For Referral No Information Encounters Encounter Location Date Provider Diagnosis [facility] [address] [phone] 06/19/2024 JAC DUMONT Plan Of Treatment No Information Insurance Providers Payer Name Payer Address Payer Phone Subscriber Number Group Number Insured Name Patient Relationship to Insured Coverage Start Date Coverage End Date [employer] [address] [address] [place] [address] [id number] Latasha Cole Self - patient is the insured
== END 2025-05-27 14:43 | disposition home or self-care (01) ==
LOC: HO.HWSM 13:52
PROVIDERS: PCP Family Medicine; Visit Provider Advanced Practice Midwife
DX: Z01.419 Encounter for gynecological examination (general) (routine) without abnormal findings (principal); Z12.39 Encounter for other screening for malignant neoplasm of breast; Z97.5 Presence of (intrauterine) contraceptive device
CPT/HCPCS: 99395; 99459

== ENCOUNTER 2025-05-27 13:52 | Outpatient (REF) | payer OTHER, SELFPAY | END 2025-05-27 13:53 | disposition home or self-care (01) | LOC: HO.LNP 13:52 | PROVIDERS: PCP Family Medicine; Visit Provider Advanced Practice Midwife | DX: Z01.419 Encounter for gynecological examination (general) (routine) without abnormal findings (principal); Z13.29 Encounter for screening for other suspected endocrine disorder; Z97.5 Presence of (intrauterine) contraceptive device | CPT/HCPCS: 87626; 88175 ==